=== PATIENT | male | born 1960 | race Caucasian/White ===

== ENCOUNTER 2020-09-10 17:14 | Emergency (ER) | payer OTHER, SELFPAY ==
[2020-09-10 17:29] VITALS: BP 114/74; BP 128/56; PULSE 64; PULSE 75; RESP 16; TEMP 36.7; O2SAT 100; BMI 21.7
--- NOTE | 2020-09-10 17:37 | ED.NAVMDI ---
HPI - Nausea/Vomiting/Diarrhea General Chief complaint: Nausea/Vomiting/Diarrhea Stated complaint: N/V/CHILLS Time Seen by Provider: 09/10/20 17:20 Source: patient and EMS Mode of arrival: EMS Limitations: no limitations History of Present Illness HPI Narrative: patient is a 59-year-old male with a past medical history of hyperlipidemia and gender reassignment surgery on testosterone arrives via EMS complaining of weakness, dizziness, nausea and 3 episodes of vomiting, once while in the ED. States 1 week ago he had what he believes was food poisoning, was vomiting and had diarrhea for a few days, did not eat too much, worked out 2 days and felt a little bit better but then this morning after breakfast, he has a short episode of nausea which resolved. Then he had dinner tonight, felt nauseous, vomited and called EMS. he denies fever, bloody or black stools, diarrhea, any changes in urination, COVID contacts or any other sick contacts. He says he does not leave the house very often, only for groceries and for 3 hours per week to work at the [employer]. He lives alone. Related Data Home Medications Medication Instructions Recorded Confirmed mesalamine [Lialda] 4.8 g PO DAILY 09/10/20 09/10/20 Previous Rx's Medication Instructions Recorded ondansetron 4 mg PO Q6H PRN #7 tab 09/10/20 Allergies Allergy/AdvReac Type Severity Reaction Status Date / Time clindamycin [CLINDAMYCIN] Allergy Unknown HIVES Verified 09/10/20 17:39 egg [EGG] Allergy Unknown RASH,HIVES Verified 09/10/20 17:39 penicillin V Allergy Unknown Rash Verified 09/10/20 17:39 Penicillins [PENICILLINS] Allergy Unknown RASH,HIVES Verified 09/10/20 17:39 Sulfa (Sulfonamide Allergy Unknown RASH,HIVES Verified 09/10/20 17:39 Antibiotics) [SULFA(SULFONAMIDE ANTIBIOTICS)] Egg/Pro Allergy Unknown Rash Uncoded 09/10/20 17:39 Review of Systems Review of Systems: Yes all other systems are reviewed and are negative PMFSH Past Medical History Attestation statement: The following information was validated with the patient. Medical History Anxiety Icozyd-rt-noet transgender person Ulcerative colitis Surgical History H/O carpal tunnel repair 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 Social History Social History Smoked in Last 30 Days: No Use of substances other than those prescribed or required for medical reasons: Yes Substance Use Type: Marijuana Advance Directives: No Advance Directives Information Provided: Yes Physical Exam Vital Signs: Vital Signs: Vital Signs Temp Pulse Resp BP Pulse Ox 09/10/20 19:23 70 15 128/58 L 98 09/10/20 17:29 98.1 F 75 16 128/56 L 100 Body Mass Index 21.7 Const: General: cooperative, healthy appearing, comfortable, no acute distress and well developed Nutritional Appearance: thin Orientation/consciousness: patient oriented x3 Limitations: no limitations HENMT: Head: Yes normal to inspection Eyes: General: appearance normal, both eyes and all related structures Neck: Neck: Yes normal visual inspection, Yes full ROM, Yes no meningeal signs and Yes supple Chest: Other: bilateral scars across chest under breastline Resp: Effort & Inspection: normal respiratory effort and able to speak in complete sentences Auscultation: clear to auscultation bilaterally, no crackles, no rales, no rhonchi and no wheezes Cardio: Rate: regular rate Rhythm: regular rhythm Heart sounds: S1 normal heart sound present and S2 normal heart sound present GI: Inspection: Yes normal to inspection Palpation (GI): Soft to palpation, nontender, no guarding and No hepatosplenomegaly present Auscultation: normal bowel sounds Skin: General skin exam: no rashes or lesions noted Neuro: General: patient oriented x3 and no meningeal signs Extrem: General: Yes normal to inspection and No pedal edema Course Course Course Narrative: 59-year-old male with past medical history of hyperlipidemia female to male transgender reassignment surgery on testosterone weekly, complaining of nausea and vomiting and 1 week of reduced intake. EMS started of 1 L of fluids on the patient, will get labs, EKG. This is likely dehydration. VSS stable. gave paper prescription for Zofran. MDM - Nausea/Vomiting/Diarrhea MDM Narrative Medical decision making narrative: labs WNL with slight dehydration, patient states he feels better, VSS, once we have EKG, we will likely discharge Differential Diagnosis Differential diagnosis: Likely food poisoning, gastroenteritis and dehydration Lab Data Attestation: I reviewed the patient's lab results. Lab results narrative: labs fairly benign, slight dehydration, electrolytes are normal. Result diagrams: 09/10/20 18:09/10/20 18:01 Labs: Lab Results 09/10/20 09/10/20 09/10/20 Range/Units 18:01 18:01 19:28 WBC 8.6 (4.8-10.8) X10*3/uL RBC 4.24 L (4.60-5.80) X10*6/uL Hgb 13.3 L (14.0-18.0) g/dl Hct 38.8 L (42-52) % MCV 91.5 (80-98) fL MCH 31.4 (27.0-33.0) pg MCHC 34.3 (31.0-36.0) g/dl RDW 12.6 (11.0-16.0) % Plt Count 270 (160-400) X10*3/uL MPV 10.1 (9.4-12.4) fL Immature Gran % (Auto) 0.2 (0.0-0.4) % Neut % (Auto) 72.6 (45-73) % Lymph % (Auto) 18.4 L (20-40) % [place] % (Auto) 7.3 (2-11) % Eos % (Auto) 0.9 (0-4) % Baso % (Auto) 0.6 (0-2) % Lymph # (Auto) 1.6 (1.2-4.9) X10*3/uL [place] # (Auto) 0.6 (0.1-1.2) X10*3/uL Eos # (Auto) 0.1 (0.0-0.4) X10*3/uL Baso # (Auto) 0.1 (0.0-0.2) X10*3/uL Abs Immat Gran (auto) 0.02 (0.00-0.03) X10*3/uL Absolute Neuts (auto) 6.3 (2.0-8.3) X10*3/uL Absolute Nucleated RBC 0.000 (0.0-0.012) X10*3/uL Nucleated RBC % (auto) 0.0 (0.0-0.2) /100WBC Sodium 138 (135-145) mmol/L Potassium 4.4 (3.3-5.1) mmol/l Chloride 104 (96-108) mmol/L Carbon Dioxide 23 (22-29) mmol/L Anion Gap 15 (12-20) BUN 22 H (9-16) mg/dL Creatinine 0.83 (0.5-1.4) mg/dL Estim Creat Clear Calc 75.6 Estimated GFR > 60 Random Glucose 94 (60-115) mg/dL Calcium 9.3 (8.4-10.2) mg/dL Total Bilirubin 0.5 (0.0-1.0) mg/dL Direct Bilirubin 0.2 (0.0-0.5) mg/dL AST 17 (5-37) U/L ALT 12 (0-40) U/L Alkaline Phosphatase 58 (39-117) U/L Total Protein 6.8 (6.5-8.0) g/dL Albumin 4.4 (3.5-5.0) g/dL Lipase 19 (8-78) U/L Urine Color YELLOW Urine Appearance CLEAR Urine pH 7.0 (5.0-8.0) Ur Specific [place] 1.020 (1.005-1.025) Urine Protein NEG (NEG-TRACE) MG/DL Urine Glucose (UA) NEG (NEG) MG/DL Urine Ketones NEG (NEG) MG/DL Urine Blood NEG (NEG) Urine Nitrite NEG (NEG) Ur Leukocyte Esterase 1+ H (NEG) Urine RBC 0 (0) /HPF Urine WBC 5-9 H (0-4) /HPF Ur Squamous Epith Cells 1+ /LPF Urine Bacteria NONE /LPF ECG Data Attestation: I personally reviewed and interpreted this ECG as follows: ECG interpretation date: 09/10/20 ECG interpretation time: 19:41 Prior ECG tracings: not available for review Interpretation: NSR HR76, NH int 174ms QRS 80ms QTc 438ms Dr Austin signed off on it as well. Discharge Plan Discharge Clinical Impression: Dehydration Patient Disposition: Home, Self-Care Instructions: Dehydration (ED) Prescriptions: New ondansetron 4 mg tablet,disintegrating 4 mg PO Q6H PRN (Reason: nausea and vomiting) Qty: 7 RF: 0 No Action mesalamine [Lialda] 1.2 gram Tablet,Delayed Release (Dr/Ec) 4.8 g PO DAILY RF: 0 Interventions: ED Discharge Assessment Last Done: 09/10/20 20:13 Discharge Date/Time: 09/10/20 20:23
--- NOTE | 2020-09-10 17:44 | ECG_ITS ---
Test Reason : DIZZYNESS Blood Pressure : / mmHG Vent. Rate : 076 BPM Atrial Rate : 076 BPM P-R Int : 174 ms QRS Dur : 080 ms QT Int : 390 ms P-R-T Axes : 080 063 042 degrees QTc Int : 438 ms Normal sinus rhythm Normal ECG No previous ECGs available Referred By: Aria Ross Electronically Signed By:AMI CRAWLEY MD
[2020-09-10 18:05] LABS: MANUAL DIFF FLAG NO
[2020-09-10 18:08] LABS: Basophils Absolute Auto 0.1 X10*3/uL (0.0-0.2); Basophils Percent Auto 0.6 % (0-2); Eosinophils Absolute Auto 0.1 X10*3/uL (0.0-0.4); Eosinophils Percent Auto 0.9 % (0-4); Hematocrit 38.8 % (42-52); Hemoglobin 13.3 g/dl (14.0-18.0); Imm Gran Abs Auto 0.02 X10*3/uL (0.00-0.03); Imm Gran Pct Auto 0.2 % (0.0-0.4); Lymphocytes Absolute Auto 1.6 X10*3/uL (1.2-4.9); Lymphocytes Percent Auto 18.4 % (20-40); Mean Corpuscular HGB Conc 34.3 g/dl (31.0-36.0); Mean Corpuscular Hemoglobin 31.4 pg (27.0-33.0); Mean Corpuscular Volume 91.5 fL (80-98); Mean Platelet Volume 10.1 fL (9.4-12.4); Monocytes Absolute Auto 0.6 X10*3/uL (0.1-1.2); Monocytes Percent Auto 7.3 % (2-11); Neutrophils Absolute Auto 6.3 X10*3/uL (2.0-8.3); Neutrophils Percent Auto 72.6 % (45-73); Platelet Count 270 X10*3/uL (160-400); Red Blood Count 4.24 X10*6/uL (4.60-5.80); Red Cell Distribution Width 12.6 % (11.0-16.0); White Blood Count 8.6 X10*3/uL (4.8-10.8)
[2020-09-10] MEDS: Metoclopramide HCl 10 MG/2 ML VIAL IVPUSH (18:17)
[2020-09-10] MEDS: LORazepam 2 MG/ML VIAL 0.5 MG IVPUSH (18:17)
[2020-09-10 18:39] LABS: Alanine Aminotransferase 12 U/L (0-40); Albumin Level 4.4 g/dL (3.5-5.0); Alkaline Phosphatase 58 U/L (39-117); Anion Gap 15 (12-20); Aspartate Amino Transferase 17 U/L (5-37); Bilirubin Direct 0.2 mg/dL (0.0-0.5); Bilirubin Total 0.5 mg/dL (0.0-1.0); Blood Urea Nitrogen 22 mg/dL (9-16); Calcium 9.3 mg/dL (8.4-10.2); Carbon Dioxide 23 mmol/L (22-29); Chloride 104 mmol/L (96-108); Creatinine Clr Calc Pharmacy 75.6; Estimated Glomerular Filt Rate > 60; Glucose Random 94 mg/dL (60-115); Lipase 19 U/L (8-78); Potassium 4.4 mmol/l (3.3-5.1); Sodium 138 mmol/L (135-145); Total Protein 6.8 g/dL (6.5-8.0)
[2020-09-10 19:23] VITALS: BP 128/58; PULSE 70; RESP 15; O2SAT 98
[2020-09-10 19:34] LABS: Glucose Urine UA NEG (NEG); Leukocyte Esterase Urine 1+ (NEG); Nitrite Urine NEG (NEG); Urine Blood NEG (NEG); Urine Ketones NEG (NEG); Urine Protein NEG (NEG-TRACE)
[2020-09-10 19:38] LABS: Appearance Urine CLEAR; Color Urine YELLOW
[2020-09-10 19:41] LABS: RBC Urine 0 /HPF (0); Squamous Epithelial Cell Urine 1+ /LPF
== END 2020-09-10 20:23 | disposition home or self-care (01) ==
PROVIDERS: Physician Assistant; Emergency Provider Emergency Medicine; PCP Nurse Practitioner Family
DX: E86.0 Dehydration (principal); R11.2 Nausea with vomiting, unspecified
CPT/HCPCS: 36415; 80048; 80076; 81001; 83690; 85025; 87086; 93005; 96374; 96375; 99284; J2060; J2765

== ENCOUNTER → 2021-01-29 12:55 | Outpatient (BNVA) | payer MEDICARE, MEDICAID, SELFPAY | PROVIDERS: PCP Nurse Practitioner Family; Visit Provider Internal Medicine Gastroenterology | DX: K92.89 Other specified diseases of the digestive system (principal); K51.90 Ulcerative colitis, unspecified, without complications | CPT/HCPCS: Q3014 ==

== ENCOUNTER → 2021-06-26 13:03 | Outpatient (BNVA) | payer MEDICARE, MEDICAID, SELFPAY | PROVIDERS: Visit Provider Nurse Practitioner | DX: K51.90 Ulcerative colitis, unspecified, without complications (principal); K92.89 Other specified diseases of the digestive system; K64.9 Unspecified hemorrhoids; R10.9 Unspecified abdominal pain; K21.9 Gastro-esophageal reflux disease without esophagitis; F41.9 Anxiety disorder, unspecified; Z88.1 Allergy status to other antibiotic agents; Z88.0 Allergy status to penicillin; Z88.2 Allergy status to sulfonamides; Z79.899 Other long term (current) drug therapy | CPT/HCPCS: 99212 ==

== ENCOUNTER → 2021-10-16 14:02 | Outpatient (BNVA) | payer MEDICARE, MEDICAID, SELFPAY | PROVIDERS: PCP Nurse Practitioner Family; Visit Provider Nurse Practitioner | DX: K21.9 Gastro-esophageal reflux disease without esophagitis (principal); R10.9 Unspecified abdominal pain; K59.03 Drug induced constipation; T40.2X5A Adverse effect of other opioids, initial encounter | CPT/HCPCS: Q3014 ==

== ENCOUNTER 2022-01-22 13:29 | Outpatient (REF) | payer MEDICARE, MEDICAID, SELFPAY ==
[2022-01-22 14:46] LABS: MANUAL DIFF FLAG NO
[2022-01-22 14:49] LABS: Basophils Absolute Auto 0.1 X10*3/uL (0.0-0.2); Basophils Percent Auto 0.6 % (0-2); Eosinophils Absolute Auto 0.1 X10*3/uL (0.0-0.4); Eosinophils Percent Auto 0.9 % (0-4); Hematocrit 41.8 % (42.0-52.0); Hemoglobin 13.4 g/dl (14.0-18.0); Imm Gran Abs Auto 0.02 X10*3/uL (0.00-0.03); Imm Gran Pct Auto 0.3 % (0.0-0.4); Lymphocytes Absolute Auto 1.9 X10*3/uL (1.2-4.9); Lymphocytes Percent Auto 24.3 % (20-40); Mean Corpuscular HGB Conc 32.1 g/dl (31.0-36.0); Mean Corpuscular Hemoglobin 29.5 pg (27.0-33.0); Mean Corpuscular Volume 92.1 fL (80.0-98.0); Mean Platelet Volume 9.8 fL (9.4-12.4); Monocytes Absolute Auto 0.6 X10*3/uL (0.1-1.2); Monocytes Percent Auto 7.1 % (2-11); Neutrophils Absolute Auto 5.2 x10*3/uL (2.0-8.3); Neutrophils Percent Auto 66.8 % (45-73); Platelet Count 275 X10*3/uL (160-400); Red Blood Count 4.54 X10*6/uL (4.60-5.80); Red Cell Distribution Width 13.3 % (11.0-16.0); White Blood Count 7.7 X10*3/uL (4.8-10.8)
[2022-01-22 15:20] LABS: Alanine Aminotransferase 13 U/L (0-40); Albumin Level 4.6 g/dL (3.5-5.0); Alkaline Phosphatase 76 U/L (39-117); Anion Gap 11 (12-20); Aspartate Amino Transferase 18 U/L (5-37); Bilirubin Total 0.5 mg/dL (0.0-1.0); Blood Urea Nitrogen 21 mg/dL (9-16); Calcium 10.2 mg/dL (8.4-10.2); Carbon Dioxide 30 mmol/L (22-29); Chloride 104 mmol/L (96-108); Estimated Glomerular Filt Rate > 60; Glucose Random 96 mg/dL (60-115); Potassium 4.6 mmol/L (3.3-5.1); Sodium 140 mmol/L (135-145); Total Protein 7.3 g/dL (6.5-8.0)
== END 2022-01-22 13:30 | disposition home or self-care (01) ==
LOC: HO.LAB 13:29
PROVIDERS: PCP Nurse Practitioner Family; Visit Provider Nurse Practitioner
DX: R10.9 Unspecified abdominal pain (principal); K64.9 Unspecified hemorrhoids; D12.6 Benign neoplasm of colon, unspecified; K21.9 Gastro-esophageal reflux disease without esophagitis; K51.90 Ulcerative colitis, unspecified, without complications
CPT/HCPCS: 36415; 80053; 85025; 99212

== ENCOUNTER 2022-03-05 12:00 | Day surgery (SDC) | payer MEDICARE, MEDICAID, SELFPAY ==
[2022-02-25 15:04] VITALS: BMI 21.9
--- NOTE | 2022-03-01 09:37 | P.CONAN_ITS ---
Documented by User: Lana Schwartz NP 03/01/22 09:46 HPI - Anesthesia Eval Consult details Narrative: 61yo M for Colonoscopy F to M transgender FOR[facility]LY [facility], [facility] Active Problems Active Problems: All Active Problems (Updated 02/25/22 @ 15:04 by Amberly Mcclain RN) Hemorrhoids (Acute) Gas bloat syndrome (Acute) Abdominal cramping (Acute) GERD (gastroesophageal reflux disease) (Acute) Therapeutic opioid induced constipation (Acute) Tubular adenoma of colon (Acute) Ulcerative colitis (Acute) Past Medical History Medical History Anxiety Asthma COVID-19 vaccine series completed Qmzlsn-gq-esdr transgender person HTN (hypertension) Neurodermatitis Seasonal allergies Ulcerative colitis Surgical History Surgical History H/O carpal tunnel repair History of esophagogastroduodenoscopy (EGD) Hx of colonoscopy Hx of nasal septoplasty 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 Social History Social History Household Members: None Are you a primary district manager primary care sales to a significant other at home: No Do you presently have visiting nurse or other home services: No Alcohol intake: current Alcohol intake frequency: holidays/special occasions only Patient Tobacco Use Status: Never used Tobacco Use of substances other than those prescribed or required for medical reasons: Yes Substance Use Type: Marijuana Have you been hit, kicked, punched, or otherwise hurt by someone within the past year? If so, by whom?: No Are you DNR?: No Advance Directives: No Advance Directives Information Provided: Yes (brochure mailed) Advance Directives on File: No Recently lost weight without trying: No Eating poorly because of decreased appetite: No Nutrition Risks: No Nutritional Risk Poor oral hygiene: No Current occupational status: employed Current occupation: [employer] Allergies Allergy/AdvReac Type Severity Reaction Status Date / Time clindamycin [CLINDAMYCIN] Allergy Intermediate HIVES Verified 02/25/22 14:24 Penicillins [PENICILLINS] Allergy Intermediate RASH,HIVES Verified 02/25/22 14:24 Sulfa (Sulfonamide Allergy Intermediate RASH,HIVES Verified 02/25/22 14:24 Antibiotics) [SULFA(SULFONAMIDE ANTIBIOTICS)] Home Medications Medication Instructions Recorded Confirmed Last Taken Type cetirizine 10 mg tablet (Zyrtec) 10 mg PO DAILY PRN 01/29/21 02/25/22 Unknown History lorazepam 0.5 mg tablet 0.5 mg PO TID PRN 01/29/21 02/25/22 03/05/22 History albuterol sulfate 90 mcg/actuation 1 inh INHALATION Q4H PRN 06/26/21 02/25/22 Unknown History aerosol inhaler (ProAir HFA) amlodipine 2.5 mg tablet 2.5 mg PO DAILY 01/22/22 02/25/22 03/05/22 History mesalamine 1.2 gram tablet,delayed 4.8 g PO QAM 02/25/22 02/25/22 Unknown History release naloxegol 25 mg tablet (Movantik) 25 mg PO QAM PRN 02/25/22 02/25/22 Unknown History naltrexone 8 mg-bupropion 90 mg 1 tab PO QPM 02/25/22 02/25/22 Unknown History tablet,extended release Exam Exam Date and Time: March 01, 2022 0937 Height,Weight and Vital Signs: Height 5 ft 3 in Weight 56.245 kg Pertinent Lab Results Pertinent Lab Results: Laboratory Tests 01/22/22 01/22/22 14:43 14:43 WBC 7.7 Hgb 13.4 L Hct 41.8 L Plt Count 275 Sodium 140 Potassium 4.6 Chloride 104 Carbon Dioxide 30 H BUN 21 H Creatinine 1.00 Assessment and Plan Assessment Anesthesia Assessment: Chart Reviewed Documented by User: Miriam Moralez MD 03/05/22 12:29 [facility] Past Medical History Medical History Anxiety Asthma COVID-19 vaccine series completed Gisoit-yu-bqqj transgender person HTN (hypertension) Neurodermatitis Seasonal allergies Ulcerative colitis Surgical History Surgical History H/O carpal tunnel repair History of esophagogastroduodenoscopy (EGD) Hx of colonoscopy Hx of nasal septoplasty 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 History of Problems with Anesthesia: No Social History Social History Household Members: None Are you a primary district manager primary care sales to a significant other at home: No Do you presently have visiting nurse or other home services: No Alcohol intake: current Alcohol intake frequency: holidays/special occasions only Patient Tobacco Use Status: Never used Tobacco Use of substances other than those prescribed or required for medical reasons: Yes Substance Use Type: Marijuana Have you been hit, kicked, punched, or otherwise hurt by someone within the past year? If so, by whom?: No Are you DNR?: No Advance Directives: No Advance Directives Information Provided: Yes (brochure mailed) Advance Directives on File: No Recently lost weight without trying: No Eating poorly because of decreased appetite: No Nutrition Risks: No Nutritional Risk Poor oral hygiene: No Current occupational status: employed Current occupation: [employer] Allergies Allergy/AdvReac Type Severity Reaction Status Date / Time clindamycin [CLINDAMYCIN] Allergy Intermediate HIVES Verified 02/25/22 14:24 Penicillins [PENICILLINS] Allergy Intermediate RASH,HIVES Verified 02/25/22 14:24 Sulfa (Sulfonamide Allergy Intermediate RASH,HIVES Verified 02/25/22 14:24 Antibiotics) [SULFA(SULFONAMIDE ANTIBIOTICS)] Home Medications Medication Instructions Recorded Confirmed Last Taken Type cetirizine 10 mg tablet (Zyrtec) 10 mg PO DAILY PRN 01/29/21 02/25/22 Unknown History lorazepam 0.5 mg tablet 0.5 mg PO TID PRN 01/29/21 02/25/22 03/05/22 History albuterol sulfate 90 mcg/actuation 1 inh INHALATION Q4H PRN 06/26/21 02/25/22 Unknown History aerosol inhaler (ProAir HFA) amlodipine 2.5 mg tablet 2.5 mg PO DAILY 01/22/22 02/25/22 03/05/22 History mesalamine 1.2 gram tablet,delayed 4.8 g PO QAM 02/25/22 02/25/22 Unknown History release naloxegol 25 mg tablet (Movantik) 25 mg PO QAM PRN 02/25/22 02/25/22 Unknown History naltrexone 8 mg-bupropion 90 mg 1 tab PO QPM 02/25/22 02/25/22 Unknown History tablet,extended release Exam Airway Mallampati Class: I TM Dist: >3cm Neck ROM: Full Loose/Missing/Broken Teeth: No Heart: RRR Lungs: CTA Assessment and Plan Final Anesthetic Review History of Problems with Anesthesia: No NPO: Yes ASA Class: II Patient Risk: Low Procedure Risk: Low Assessment/Block/Sedation in SS: Assess/Block/Sedation-SS Anesthetic Plan Anesthetic Plan: MAC: Disposition: Standard PACU
[2022-03-05 12:16] VITALS: BP 137/60; PULSE 83; RESP 16; TEMP 36.7; O2SAT 96
[2022-03-05] MEDS: Lactated Ringers 1,000 ML 100 ML IVCONT (12:22)
--- NOTE | 2022-03-05 12:26 | MHC.SHP ---
Pre-Procedural Eval Section A Date of Service: 03/05/22 Section B Chief Complaint: ulcerative colitis,benign neoplasm of colon Relevant Family History (Specify if Yes): No Relevant Social History: Other (specify) (thc) Present Medications: see Short Stay Collaborative assessment Medical History: Significant History (Anxiety Asthma COVID-19 vaccine series completed Ktbubs-oz-[id number] transgender person HTN (hypertension) Neurodermatitis Seasonal allergies Ulcerative colitis) History of Previous Operations: Relevant previous surgery/procedure and date(s) (H/O carpal tunnel repair History of esophagogastroduodenoscopy (EGD) Hx of colonoscopy Hx of nasal septoplasty 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) Allergies: Allergies Allergy/AdvReac Type Severity Reaction Status Date / Time clindamycin [CLINDAMYCIN] Allergy Intermediate HIVES Verified 02/25/22 14:24 Penicillins [PENICILLINS] Allergy Intermediate RASH,HIVES Verified 02/25/22 14:24 Sulfa (Sulfonamide Allergy Intermediate RASH,HIVES Verified 02/25/22 14:24 Antibiotics) [SULFA(SULFONAMIDE ANTIBIOTICS)] Review of Systems Sugical H&P ROS: Negative: Constitution, Cardiovascular, Respiratory, Neurological, Psychiatric, Hem-Onc, Allergic/Immunologic, Gastrointestinal, Genitourinary, Musculoskeletal, Integumentary, Endocrine and Eyes/Ears/Nose/Throat Exam Surgical H&P Exam: Normal: HEENT, Normal: Heart, Normal: Lungs, Normal: Extremities, Normal: Abdomen, Normal: Skin and Normal: Neurological Plan Diagnosis/Plan: Unchanged I have reviewed the history and physical and performed a pertinent physical examination on my patient. No changes have occurred unless specified.
--- NOTE | 2022-03-05 13:02 | W.PM.OPN ---
Operative Note Operative Note Date of Service: 03/05/22 Narrative: Operative Information Procedure Description: Colonoscopy Indication: hx of Ulcerative colitis, Anesthesia: MAC COLONOSCOPY Instrument: Olympus variable stiffness pediatric scope 190L Colonoscopy Monitoring: Vital signs and clinical assessment, continuous EKG monitoring, Pulse oximetry, Carbon Dioxide monitoring and blood pressure monitoring were done throughout the procedure. Colon withdrawal time was 15 minutes. Procedure: The patient was placed in the left lateral decubitis position and pre-procedure medications were administered. After a digital rectal examination of the ano-rectum, the video colonoscope was inserted into the rectum and advanced through the colon to the cecum/TI. The colonoscope was slowly withdrawn in a retrograde panoramic fashion and the colon mucosa was carefully examined including a retroflexed view of the rectum. Findings and interventions are described below. Procedure Difficulty: easy Findings: Terminal Ileum-normal, bx taken Bx taken from right colon, transverse, left colon and rectum in separate jars Cecum:normal Ascending Colon: normal Transverse Colon -normal Descending Colon:normal Sigmoid Colon: normal Rectum: Retroflexion with small internal hemorrhoids, grade I, 7-8 mm sessile polyp removed with cold snare, residual tissue removed with cofl forceps Anorectum - normal Colon preparation: [place] Bowel Preparation Scale Right colon; 2 Transverse colon: 2 Left colon; 2 (0 = Unprepared colon segment with mucosa not seen due to solid stool that cannot be cleared. 1 = Portion of mucosa of the colon segment seen, but other areas of the colon segment not well seen due to staining, residual stool and/or opaque liquid. 2 = Minor amount of residual staining, small fragments of stool and/or opaque liquid, but mucosa of colon segment seen well. 3 = Entire mucosa of colon segment seen well with no residual staining, small fragments of stool or opaque liquid) Impression and Post Procedure Diagnosis: internal hemorrhoids polyp Plan: High fiber diet leaflet Avoid straining at stool, epsom salts and sitz bath, anusol supps or cream Repeat Colonoscopy in 1-2 years due to longstanding hx of Uc since 1998 or earlier if clinically indicated, albeit seems to be in deep remission. Above findings were reviewed with the patient and relevant handouts were provided if indicated.
--- NOTE | 2022-03-05 13:02 | PM.OP ---
Brief Operative Note Date of Service: 03/05/22 Pre-op diagnosis: hx of UC Post-op diagnosis: same Procedure: see op note Surgeon: Caity Richards MD Anesthesia: MAC Was an Seismic Plotter used for this Procedure?: No Estimated blood loss (mL): 0 Condition: stable Disposition: PACU
[2022-03-05 13:07] VITALS: BP 109/59; PULSE 82; RESP 18; TEMP 36.1; O2SAT 99
[2022-03-05 13:22] VITALS: BP 126/63; PULSE 80; RESP 18; O2SAT 100
[2022-03-05 13:32] VITALS: BP 121/66; PULSE 84; RESP 18; TEMP 36.1; O2SAT 100
== END 2022-03-05 13:53 | disposition home or self-care (01) ==
PROVIDERS: PCP Nurse Practitioner Family; Visit Provider Internal Medicine Gastroenterology
PROC: 0DJD8ZZ Inspection of Lower Intestinal Tract, Via Natural or Artificial Opening Endoscopic (ICD-10-PCS; CPT 45378; principal; 2022-03-05 13:40)
DX: K51.90 Ulcerative colitis, unspecified, without complications (principal); Z86.010 Personal history of colon polyps; K62.1 Rectal polyp; K64.0 First degree hemorrhoids; J45.909 Unspecified asthma, uncomplicated; I10 Essential (primary) hypertension; L28.0 Lichen simplex chronicus; F41.1 Generalized anxiety disorder; Z87.890 Personal history of sex reassignment; Z88.0 Allergy status to penicillin; Z88.1 Allergy status to other antibiotic agents; Z88.2 Allergy status to sulfonamides; Z79.899 Other long term (current) drug therapy; F12.90 Cannabis use, unspecified, uncomplicated
CPT/HCPCS: 45385; 45380; 88305; Q9968

== ENCOUNTER → 2022-03-26 13:32 | Outpatient (BNVA) | payer MEDICARE, MEDICAID, SELFPAY | PROVIDERS: PCP Nurse Practitioner Family; Visit Provider Nurse Practitioner | DX: K51.90 Ulcerative colitis, unspecified, without complications (principal); K21.9 Gastro-esophageal reflux disease without esophagitis; D12.6 Benign neoplasm of colon, unspecified | CPT/HCPCS: 99212 ==

== ENCOUNTER → 2022-09-24 12:01 | Outpatient (BNVA) | payer MEDICARE, MEDICAID, SELFPAY | PROVIDERS: PCP Nurse Practitioner Family; Visit Provider Nurse Practitioner | DX: K51.90 Ulcerative colitis, unspecified, without complications (principal); K21.9 Gastro-esophageal reflux disease without esophagitis; D12.6 Benign neoplasm of colon, unspecified; K64.9 Unspecified hemorrhoids | CPT/HCPCS: 99212 ==

== ENCOUNTER → 2023-02-27 12:00 | Outpatient (BNVA) | payer MEDICARE, MEDICAID, SELFPAY | PROVIDERS: PCP Nurse Practitioner Family; Visit Provider Nurse Practitioner | DX: K51.90 Ulcerative colitis, unspecified, without complications (principal); K21.9 Gastro-esophageal reflux disease without esophagitis; K64.9 Unspecified hemorrhoids; Z79.899 Other long term (current) drug therapy | CPT/HCPCS: 99212 ==

== ENCOUNTER 2023-04-03 08:20 | Day surgery (SDC) | payer MEDICARE, MEDICAID, SELFPAY ==
[2023-04-01 15:07] VITALS: BMI 19.6
--- NOTE | 2023-04-02 12:00 | HO.ANESPROP2 ---
Documented by User: Lana Schwartz NP 04/02/23 12:01 HPI - Anesthesia Eval Consult details Narrative: 62yo M for Colonoscopy PMFSH Active Problems Active Problems: All Active Problems (Updated 09/24/22 @ 13:46 by JANIYA Napier) Hemorrhoids (Acute) Gas bloat syndrome (Acute) Abdominal cramping (Acute) GERD (gastroesophageal reflux disease) (Acute) Therapeutic opioid induced constipation (Acute) Tubular adenoma of colon (Acute) Ulcerative colitis (Acute) Past Medical History Medical History Anxiety Asthma COVID-19 vaccine series completed Pasuer-jm-[id number] transgender person HTN (hypertension) Neurodermatitis Seasonal allergies Ulcerative colitis Surgical History Surgical History H/O carpal tunnel repair History of esophagogastroduodenoscopy (EGD) Hx of colonoscopy Hx of nasal septoplasty 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 History of Problems with Anesthesia: No Social History Social History Household Members: None Are you a primary manager intensive care unit to a significant other at home: No Do you presently have visiting nurse or other home services: No Alcohol intake: current Alcohol intake frequency: holidays/special occasions only Patient Tobacco Use Status: Never used Tobacco Use of substances other than those prescribed or required for medical reasons: Yes Substance Use Type: Marijuana Are you DNR?: No Advance Directives: No Advance Directives Information Provided: Yes Recently lost weight without trying: No Nutrition Risks: No Nutritional Risk Current occupational status: employed Current occupation: [employer] Allergies Allergy/AdvReac Type Severity Reaction Status Date / Time clindamycin [CLINDAMYCIN] Allergy Intermediate HIVES Verified 02/27/23 12:26 egg Allergy Intermediate Hives Verified 02/27/23 12:26 Penicillins [PENICILLINS] Allergy Intermediate RASH,HIVES Verified 02/27/23 12:26 Sulfa (Sulfonamide Allergy Intermediate RASH,HIVES Verified 02/27/23 12:26 Antibiotics) [SULFA(SULFONAMIDE ANTIBIOTICS)] Home Medications Medication Instructions Recorded Confirmed Last Taken Type cetirizine 10 mg tablet (Zyrtec) 10 mg PO DAILY PRN Allergic 01/29/21 02/25/22 Unknown History Symptoms lorazepam 0.5 mg tablet 0.5 mg PO TID PRN Anxiety 01/29/21 02/25/22 03/05/22 History albuterol sulfate 90 mcg/actuation 1 inh inhalation Q4H PRN Wheezing 06/26/21 04/03/23 04/03/23 08:44 History aerosol inhaler (ProAir HFA) amlodipine 2.5 mg tablet 2.5 mg PO DAILY 01/22/22 02/25/22 03/05/22 History testosterone cypionate 200 mg/mL 50 mg IM QWEEK 03/26/22 Unknown History intramuscular oil Naltrexone 6 mg PO BEDTIME 09/24/22 Unknown History needle (disp) 18 G 18 gauge x 1 #100 ea 09/24/22 Unknown History (BD Regular Bevel [place]) syringe (disposable) 1 mL (BD #1,000 ea 09/24/22 Unknown History Tuberculin Slip-Tip) cholecalciferol (vitamin D3) 50 50 mcg PO DAILY 02/27/23 Unknown History mcg (2,000 unit) capsule Exam Exam Date and Time: April 02, 2023 1200 Height,Weight and Vital Signs: Height 5 ft 5 in Weight 53.524 kg Assessment and Plan Assessment Anesthesia Assessment: Chart Reviewed Final Anesthetic Review History of Problems with Anesthesia: No Documented by User: Ronald Hightower MD 04/03/23 09:50 [facility] Past Medical History Medical History Anxiety Asthma COVID-19 vaccine series completed Wybayo-ke-pvph transgender person HTN (hypertension) Neurodermatitis Seasonal allergies Ulcerative colitis Family History Family history of problems with anesthesia: No Surgical History Surgical History H/O carpal tunnel repair History of esophagogastroduodenoscopy (EGD) Hx of colonoscopy Hx of nasal septoplasty 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 Social History Social History Household Members: None Are you a primary manager intensive care unit to a significant other at home: No Do you presently have visiting nurse or other home services: No Alcohol intake: current Alcohol intake frequency: holidays/special occasions only Patient Tobacco Use Status: Never used Tobacco Use of substances other than those prescribed or required for medical reasons: Yes Substance Use Type: Marijuana Are you DNR?: No Advance Directives: No Advance Directives Information Provided: Yes Recently lost weight without trying: No Nutrition Risks: No Nutritional Risk Current occupational status: employed Current occupation: [employer] Allergies Allergy/AdvReac Type Severity Reaction Status Date / Time clindamycin [CLINDAMYCIN] Allergy Intermediate HIVES Verified 02/27/23 12:26 egg Allergy Intermediate Hives Verified 02/27/23 12:26 Penicillins [PENICILLINS] Allergy Intermediate RASH,HIVES Verified 02/27/23 12:26 Sulfa (Sulfonamide Allergy Intermediate RASH,HIVES Verified 02/27/23 12:26 Antibiotics) [SULFA(SULFONAMIDE ANTIBIOTICS)] Home Medications Medication Instructions Recorded Confirmed Last Taken Type cetirizine 10 mg tablet (Zyrtec) 10 mg PO DAILY PRN Allergic 01/29/21 02/25/22 Unknown History Symptoms lorazepam 0.5 mg tablet 0.5 mg PO TID PRN Anxiety 01/29/21 02/25/22 03/05/22 History albuterol sulfate 90 mcg/actuation 1 inh inhalation Q4H PRN Wheezing 06/26/21 04/03/23 04/03/23 08:44 History aerosol inhaler (ProAir HFA) amlodipine 2.5 mg tablet 2.5 mg PO DAILY 01/22/22 02/25/22 03/05/22 History testosterone cypionate 200 mg/mL 50 mg IM QWEEK 03/26/22 Unknown History intramuscular oil Naltrexone 6 mg PO BEDTIME 09/24/22 Unknown History needle (disp) 18 G 18 gauge x 1 #100 ea 09/24/22 Unknown History (BD Regular Bevel [place]) syringe (disposable) 1 mL (BD #1,000 ea 09/24/22 Unknown History Tuberculin Slip-Tip) cholecalciferol (vitamin D3) 50 50 mcg PO DAILY 02/27/23 Unknown History mcg (2,000 unit) capsule Exam Airway Mallampati Class: II TM Dist: >3cm Neck ROM: Full Loose/Missing/Broken Teeth: No Heart: rrr Lungs: clear Assessment and Plan Final Anesthetic Review Family History of Problems with Anesthesia: No NPO: Yes ASA Class: II Final Preanesthetic Review: No Changes in Pt Med Stat, Meds/Allgs Chart Reviewed, Consent Obtained/Reviewed and Anes Risks/Benef Reviewed Patient Risk: Low Procedure Risk: Low Anesthetic Plan Anesthetic Plan: MAC: Disposition: Standard PACU
[2023-04-03 08:51] VITALS: BP 138/73; PULSE 83; RESP 16; TEMP 36.7; O2SAT 98
--- NOTE | 2023-04-03 09:14 | PC.NURSE ---
large hematoma after iv insertion that didnt work applied 2x2 and pressure and ice pack for comfort to right to top of hand
[2023-04-03] MEDS: Lactated Ringers 1,000 ML 100 ML IVCONT (09:15)
--- NOTE | 2023-04-03 09:39 | P.HPSUR_ITS ---
Pre-Procedural Eval Section A Date of Service: 04/03/23 Section B Chief Complaint: Benign neoplasm anus,anal canal,ulcerative colitis Relevant Family History (Specify if Yes): No Relevant Social History: Other (specify) (THC) Present Medications: see Short Stay Collaborative assessment Medical History: Significant History (Anxiety Asthma COVID-19 vaccine series completed Rwwfzq-[id number]-[id number] transgender person HTN (hypertension) Neurodermatitis Seasonal allergies Ulcerative colitis) History of Previous Operations: Relevant previous surgery/procedure and date(s) (H/O carpal tunnel repair History of esophagogastroduodenoscopy (EGD) Hx of colonoscopy Hx of nasal septoplasty 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) Allergies: Allergies Allergy/AdvReac Type Severity Reaction Status Date / Time clindamycin [CLINDAMYCIN] Allergy Intermediate HIVES Verified 02/27/23 12:26 egg Allergy Intermediate Hives Verified 02/27/23 12:26 Penicillins [PENICILLINS] Allergy Intermediate RASH,HIVES Verified 02/27/23 12:26 Sulfa (Sulfonamide Allergy Intermediate RASH,HIVES Verified 02/27/23 12:26 Antibiotics) [SULFA(SULFONAMIDE ANTIBIOTICS)] Review of Systems Sugical H&P ROS: Negative: Constitution, Cardiovascular, Respiratory, Neurolo gical, Psychiatric, Hem-Onc, Allergic/Immunologic, Gastrointestinal, Genitourinary, Musculoskeletal, Integumentary, Endocrine and Eyes/Ears/Nose/Throat Exam Surgical H&P Exam: Normal: HEENT, Normal: Heart, Normal: Lungs, Normal: Extremities, Normal: Abdomen, Normal: Skin and Normal: Neurological Plan Diagnosis/Plan: Unchanged I have reviewed the history and physical and performed a pertinent physical examination on my patient. No changes have occurred unless specified. Time Spent With Patient Time: Total time managing care of this patient today ____ minutes.
--- NOTE | 2023-04-03 09:40 | W.PM.OPN ---
Operative Note Operative Note Date of Service: 04/03/23 Narrative: Operative Information Procedure Description: Colonoscopy Indication: hx of UC, screening Anesthesia: MAC COLONOSCOPY Instrument: Olympus variable stiffness pediatric scope 190L Colonoscopy Monitoring: Vital signs and clinical assessment, continuous EKG monitoring, Pulse oximetry, Carbon Dioxide monitoring and blood pressure monitoring were done throughout the procedure. Colon withdrawal time was 11 minutes. Procedure: The patient was placed in the left lateral decubitis position and pre-procedure medications were administered. After a digital rectal examination of the ano-rectum, the video colonoscope was inserted into the rectum and advanced through the colon to the cecum/TI. The colonoscope was slowly withdrawn in a retrograde panoramic fashion and the colon mucosa was carefully examined including a retroflexed view of the rectum. Findings and interventions are described below. Procedure Difficulty: easy Findings: Terminal Ileum-normal, Bx taken from right colon, transverse/left colon and rectum in separate jars Cecum:normal Ascending Colon: normal Transverse Colon -normal Descending Colon:normal Sigmoid Colon:?1-2 folds with v mild erythema Rectum: Retroflexion with small internal hemorrhoids, grade I, some scarring noted in the rectum Anorectum - normal Colon preparation: [place] Bowel Preparation Scale Right colon; 2 Transverse colon: 2 Left colon; 3 (0 = Unprepared colon segment with mucosa not seen due to solid stool that cannot be cleared. 1 = Portion of mucosa of the colon segment seen, but other areas of the colon segment not well seen due to staining, residual stool and/or opaque liquid. 2 = Minor amount of residual staining, small fragments of stool and/or opaque liquid, but mucosa of colon segment seen well. 3 = Entire mucosa of colon segment seen well with no residual staining, small fragments of stool or opaque liquid) Impression and Post Procedure Diagnosis: internal hemorrhoids v mild sigmoid erythema, localized Plan: High fiber diet leaflet Avoid straining at stool, epsom salts and sitz bath, anusol supps or cream Repeat Colonoscopy in 1-2 years due to longstanding hx of Uc since 1998 or earlier if clinically indicated, albeit seems to be in deep remission.
[2023-04-03 10:20] VITALS: BP 117/63; PULSE 97; RESP 18; TEMP 36.7; O2SAT 96
[2023-04-03 10:35] VITALS: BP 130/61; PULSE 83; RESP 16; TEMP 36.7; O2SAT 99
== END 2023-04-03 10:48 | disposition home or self-care (01) ==
PROVIDERS: PCP Nurse Practitioner Family; Visit Provider Internal Medicine Gastroenterology
PROC: 0DJD8ZZ Inspection of Lower Intestinal Tract, Via Natural or Artificial Opening Endoscopic (ICD-10-PCS; CPT 45378; principal; 2023-04-03 09:40)
DX: Z12.11 Encounter for screening for malignant neoplasm of colon (principal); Z86.010 Personal history of colon polyps; K52.9 Noninfective gastroenteritis and colitis, unspecified; Z87.19 Personal history of other diseases of the digestive system; K64.0 First degree hemorrhoids; K21.9 Gastro-esophageal reflux disease without esophagitis; I10 Essential (primary) hypertension; J45.909 Unspecified asthma, uncomplicated; F64.0 Transsexualism; L28.0 Lichen simplex chronicus; F41.1 Generalized anxiety disorder; Z79.899 Other long term (current) drug therapy; Z88.2 Allergy status to sulfonamides; Z88.0 Allergy status to penicillin; Z88.1 Allergy status to other antibiotic agents; Z98.890 Other specified postprocedural states
CPT/HCPCS: 45380; 88305

== ENCOUNTER 2023-04-16 11:58 | Outpatient (REF) | payer MEDICARE, MEDICAID, SELFPAY ==
[2023-04-16 12:50] LABS: MANUAL DIFF FLAG NO
[2023-04-16 13:00] LABS: Basophils Absolute Auto 0.1 X10*3/uL (0.0-0.2); Basophils Percent Auto 0.9 % (0-2); Eosinophils Absolute Auto 0.1 X10*3/uL (0.0-0.4); Eosinophils Percent Auto 1.9 % (0-4); Hematocrit 38.9 % (42.0-52.0); Hemoglobin 12.8 g/dl (14.0-18.0); Imm Gran Abs Auto 0.02 X10*3/uL (0.00-0.03); Imm Gran Pct Auto 0.3 % (0.0-0.4); Lymphocytes Percent Auto 35.1 % (20-40); Mean Corpuscular HGB Conc 32.9 g/dl (31.0-36.0); Mean Corpuscular Volume 91.3 fL (80.0-98.0); Mean Platelet Volume 9.5 fL (9.4-12.4); Monocytes Absolute Auto 0.5 X10*3/uL (0.1-1.2); Monocytes Percent Auto 8.9 % (2-11); Neutrophils Percent Auto 52.9 % (45-73); Platelet Count 269 X10*3/uL (160-400); Red Blood Count 4.26 X10*6/uL (4.60-5.80); Red Cell Distribution Width 13.3 % (11.0-16.0); White Blood Count 5.8 X10*3/uL (4.8-10.8)
[2023-04-16 13:23] LABS: Alanine Aminotransferase 11 U/L (0-40); Albumin Level 4.6 g/dL (3.5-5.0); Alkaline Phosphatase 73 U/L (39-117); Anion Gap 10 (12-20); Aspartate Amino Transferase 18 U/L (5-37); Bilirubin Total 0.7 mg/dL (0.0-1.0); Blood Urea Nitrogen 12 mg/dL (9-16); C Reactive Protein 0.21 mg/dL (< or = 0.50); Calcium 10.3 mg/dL (8.4-10.2); Carbon Dioxide 28 mmol/L (22-29); Chloride 107 mmol/L (96-108); Estimated Glomerular Filt Rate > 60; Glucose Random 89 mg/dL (60-115); Potassium 4.3 mmol/L (3.3-5.1); Sodium 141 mmol/L (135-145); Total Protein 7.2 g/dL (6.5-8.0)
== END 2023-04-16 11:59 | disposition home or self-care (01) ==
LOC: HO.LAB 11:58
PROVIDERS: PCP Nurse Practitioner Family; Visit Provider Nurse Practitioner
DX: K51.90 Ulcerative colitis, unspecified, without complications (principal); K62.5 Hemorrhage of anus and rectum; D12.6 Benign neoplasm of colon, unspecified; K21.9 Gastro-esophageal reflux disease without esophagitis
CPT/HCPCS: 36415; 80053; 85025; 86140; 99212

== ENCOUNTER → 2023-05-07 12:04 | Outpatient (BNVA) | payer MEDICARE, MEDICAID, SELFPAY | PROVIDERS: PCP Nurse Practitioner Family; Visit Provider Nurse Practitioner | DX: K51.90 Ulcerative colitis, unspecified, without complications (principal); K21.9 Gastro-esophageal reflux disease without esophagitis; R10.9 Unspecified abdominal pain | CPT/HCPCS: 99212 ==

== ENCOUNTER 2023-09-15 13:01 | Outpatient (REF) | payer MEDICARE, MEDICAID, SELFPAY ==
[2023-09-15 14:00] LABS: CDiff Gene PCR POSITIVE (Negative)
[2023-09-15 14:48] LABS: CDIFF Internal ctrl Dots and bkg OK (V); CDiff Toxin Negative (Negative)
[2023-09-15 14:55] LABS: Adenovirus F 40/41 Not Detected (Not Detect.); Astrovirus Not Detected (Not Detect.); Campylobacter Not Detected (Not Detect.); Cryptosporidium Not Detected (Not Detect.); Cyclospora cayetanensis Not Detected (Not Detect.); E. coli EAEC Not Detected (Not Detect.); E. coli EPEC Not Detected (Not Detect.); E. coli ETEC Not Detected (Not Detect.); E. coli STEC Not Detected (Not Detect.); Entamoeba histolytica Not Detected (Not Detect.); Giardia lamblia Not Detected (Not Detect.); Norovirus GI/GII Not Detected (Not Detect.); Plesiomonas shigelloides Not Detected (Not Detect.); Rotavirus A Not Detected (Not Detect.); Salmonella Not Detected (Not Detect.); Sapovirus Not Detected (Not Detect.); Shigella sp./EIEC Not Detected (Not Detect.); Vibrio Not Detected (Not Detect.); Vibrio Cholerae Not Detected (Not Detect.); Yersinia enterocolitica Not Detected (Not Detect.)
[2023-09-19 22:59] LABS: Calprotectin, Fecal 375 mcg/g
== END 2023-09-15 13:02 | disposition home or self-care (01) ==
LOC: HO.LNP 13:01
PROVIDERS: Visit Provider Nurse Practitioner
DX: R19.7 Diarrhea, unspecified (principal)
CPT/HCPCS: 83993; 87324; 87493; 87507

== ENCOUNTER 2023-10-07 09:33 | Outpatient (REF) | payer MEDICARE, MEDICAID, SELFPAY ==
[2023-10-07 10:49] LABS: CDiff Gene PCR NEGATIVE (Negative)
[2023-10-07 12:20] LABS: Adenovirus F 40/41 Not Detected (Not Detect.); Astrovirus Not Detected (Not Detect.); Campylobacter Not Detected (Not Detect.); Cryptosporidium Not Detected (Not Detect.); Cyclospora cayetanensis Not Detected (Not Detect.); E. coli EAEC Not Detected (Not Detect.); E. coli EPEC Not Detected (Not Detect.); E. coli ETEC Not Detected (Not Detect.); E. coli STEC Not Detected (Not Detect.); Entamoeba histolytica Not Detected (Not Detect.); Giardia lamblia Not Detected (Not Detect.); Norovirus GI/GII Not Detected (Not Detect.); Plesiomonas shigelloides Not Detected (Not Detect.); Rotavirus A Not Detected (Not Detect.); Salmonella Not Detected (Not Detect.); Sapovirus Not Detected (Not Detect.); Shigella sp./EIEC Not Detected (Not Detect.); Vibrio Not Detected (Not Detect.); Vibrio Cholerae Not Detected (Not Detect.); Yersinia enterocolitica Not Detected (Not Detect.)
== END 2023-10-07 09:34 | disposition home or self-care (01) ==
LOC: HO.LNP 09:33
PROVIDERS: Visit Provider Nurse Practitioner
DX: R19.7 Diarrhea, unspecified (principal); A04.72 Enterocolitis due to Clostridium difficile, not specified as recurrent
CPT/HCPCS: 87493; 87507

== ENCOUNTER 2023-10-15 13:21 | Outpatient (AMB) | payer MEDICARE, MEDICAID, SELFPAY ==
--- NOTE | 2023-10-15 13:22 | A.OFFVIS_ITS ---
Intake Vital Signs 10/15/23 13:26 Height 5 ft 3 in Weight 104 lb BMI 18.4 BP 148/76 H Blood Pressure Location Lt brachial Position Sitting Pulse 82 Intake Visit Reasons: 4 week f/u colitis Intake Note: Patient returns to in office visit today in follow up c diff. CC: Patient states he stills feels woozy and kind of weak. He reports stools still loose, he was seeing blood in stool but this resolved but he believe he saw a little bit today. Pt c/o poor appetite and weight loss. [employer] Required: No Accompanied by: Self / Same As Patient Allergies clindamycin [CLINDAMYCIN] Allergy (Intermediate, Verified 11/05/23 11:45) HIVES egg Allergy (Intermediate, Verified 11/05/23 11:45) Hives Penicillins [PENICILLINS] Allergy (Intermediate, Verified 11/05/23 11:45) RASH,HIVES Sulfa (Sulfonamide Antibiotics) [SULFA(SULFONAMIDE ANTIBIOTICS)] Allergy (Intermediate, Verified 11/05/23 11:45) RASH,HIVES HPI 4 week f/u colitis HPI Details Assessment & Plan (1) Ulcerative colitis: Code(s): K51.90 - Ulcerative colitis, unspecified, without complications Plan: We need to look back in to doing the PA for the name brand mesalamine r/t swallowing. He finds the bentyl helpful for some IBS but his bowels are normalizing. He did have trouble with cocktail sauce and he finds his tolerance to peppers and to spicy foods is diminished. We review the labs which all look good and seem to indicate that his IBD is well controlled. I think any breakthrough diarrhea he is having may be because he is developing food intolerance is as he ages. He continues on his pantoprazole with good control of his heartburn. ROV 6 mos. (2) GERD (gastroesophageal reflux diseas e): Code(s): K21.9 - Gastro-esophageal reflux disease without esophagitis (3) Abdominal cramping: Code(s): R10.9 - Unspecified abdominal pain TODAY'S VISIT HE continues to have soft stools but improving a little bit is off of the zofran and the mena dizziness is improved but still woozy and weak. Not still eating, no appetite still. Drinks rich and eats yogurt, but we discuss probiotic/prebiotic. Not quite finished with difficid will be a couple of days. Warned that probiotic sometimes can upset IBD so he will have to go by how his body reacts. We discuss bowel irritability s/p c diff, jeromy with IBD. He continues his budesinide and mesalamine. His dog even tested + for c diff. He has appt 11/05 and we will keep that for now. [facility] Medical History HTN (hypertension) COVID-19 vaccine series completed Asthma Seasonal allergies Neurodermatitis Klnfhn-cg-egzx transgender person Ulcerative colitis Anxiety Surgical History Hx of nasal septoplasty History of esophagogastroduodenoscopy (EGD) Hx of colonoscopy 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 H/O carpal tunnel repair Social History Household Members: None Are you a primary career coordinator to a significant other at home: No Do you presently have visiting nurse or other home services: No Alcohol intake: current Alcohol intake frequency: holidays/special occasions only Patient Tobacco Use Status: Never used Tobacco Substance Use Type: Marijuana Current occupational status: employed Current occupation: [employer] Review of Systems Const Denies fatigue, Denies fever(s), Reports lethargy, Reports malaise, Denies night sweats, Reports poor appetite and Reports weight loss ENT Reports Normal hearing present, Denies dental pain, Denies dysphagia, Denies hearing loss, Denies mouth pain, Denies odynophagia, Denies throat swelling, Denies tongue swelling and Reports other (Dentition adequate) Card Reports lightheadedness Resp Reports no additional complaints GI Denies abdominal pain, Denies melena, Denies bloating, Denies hematochezia, Denies constipation, Denies GI cramping, Denies dysphagia, Denies excessive flatus, Denies early satiety, Denies heartburn, Denies diarrhea, Reports loose stools, Denies nausea, Denies odynophagia, Denies vomiting and Denies hematemesis Skin/Breast Denies pruritus, Denies lesions, Denies rash and Denies jaundice Neuro Reports Normal hearing present and Denies Abnormal speech present Endo Denies fatigue Aller/Immun Denies throat swelling and Denies tongue swelling Physical Exam Vital Signs: Last Vital Signs Pulse 82 10/15/23 13:26 BP 148/76 H 10/15/23 13:26 BMI result Body Mass Index 18.4 Const General: cooperative, no acute distress, well developed, tired appearing and well groomed Nutritional Appearance: well nourished Orientation/consciousness: oriented to person, oriented to place and oriented to time Limitations: No language barrier HEENT Head: Yes normocephalic and Yes atraumatic Eyes General: appearance normal, both eyes and all related structures Pupils: Equal, round and reactive pupils present Neck Neck: Yes normal visual inspection and Yes no lymphadenopathy Thyroid: Thyroid normal Resp Effort & Inspection: normal respiratory effort and able to speak in complete sentences Auscultation: clear to auscultation bilaterally Cardio Rate: regular rate Rhythm: regular rhythm Heart sounds: Normal, physiologic split S2 sound present Peripheral pulses: radial pulses present and posterior tibial pulses present GI Inspection: No distended and No Abdominal panniculus present Palpation (GI): Soft to palpation, nontender, no guarding, not rigid and No hepatosplenomegaly present Percussion: Yes normal to percussion Auscultation: normal bowel sounds Rectal Exam - Male: Yes deferred Skin General skin exam: no rashes or lesions noted, turgor normal, skin not dry, no jaundice, No spider nevi and no striae Rashes: no rashes Nails: normal Neuro General: oriented to person, oriented to place and oriented to time Cranial nerves: Yes Equal, round and reactive pupils present and Yes Normal hearing present Speech: No Abnormal speech present Extrem General: Yes normal to inspection, No clubbing, No cyanosis and No edema Psych Appearance: grossly normal and well kempt Mental Status: mental status grossly normal Speech and movement: Normal speech and movement present Affect: normal affect Attitude: cooperative Thought process: Normal thought process present and not confabulating Thought content: Normal thought content present Insight: Limited insight present (Psych) Judgement: Limited judgement present (Psych) Assessment & Plan Assessment & Plan (1) Ulcerative colitis: Code(s): K51.90 - Ulcerative colitis, unspecified, without complications (2) GERD (gastroesophageal reflux disease): Code(s): K21.9 - Gastro-esophageal reflux disease without esophagitis (3) Tubular adenoma of colon: Comment: Last scope 02/2022 repeat in 2 years due to ulcerative colitis Code(s): D12.6 - Benign neoplasm of colon, unspecified (4) C. difficile colitis: Code(s): A04.72 - Enterocolitis due to Clostridium difficile, not specified as recurrent Plan HE continues to have soft stools but improving a little bit is off of the zofran and the mena dizziness is improved but still woozy and weak. Not still eating, no appetite still. Drinks rich and eats yogurt, but we discuss probiotic/prebiotic. Not quite finished with difficid will be a couple of days. Warned that probiotic sometimes can upset IBD so he will have to go by how his body reacts. We discuss bowel irritability s/p c diff, jeromy with IBD. He continues his budesinide and mesalamine. His dog even tested + for c diff. He has appt 11/05 and we will keep that for now. Coding Level of Care Code Est Pt Level 3 (77516) Diagnoses Ulcerative colitis K51.90 GERD (gastroesophageal reflux disease) K21.9 Tubular adenoma of colon D12.6 C. difficile colitis A04.72
[2023-10-15 13:26] VITALS: BP 148/76; PULSE 82; BMI 18.4
== END 2023-10-15 14:03 | disposition home or self-care (01) ==
PROVIDERS: PCP Nurse Practitioner Family; Visit Provider Nurse Practitioner
DX: K51.90 Ulcerative colitis, unspecified, without complications (principal); K21.9 Gastro-esophageal reflux disease without esophagitis; D12.6 Benign neoplasm of colon, unspecified; A04.72 Enterocolitis due to Clostridium difficile, not specified as recurrent
CPT/HCPCS: 99213

== ENCOUNTER → 2023-10-15 13:21 | Outpatient (BNVA) | payer MEDICARE, MEDICAID, SELFPAY | PROVIDERS: PCP Nurse Practitioner Family; Visit Provider Nurse Practitioner | DX: K51.90 Ulcerative colitis, unspecified, without complications (principal); K21.9 Gastro-esophageal reflux disease without esophagitis; D12.6 Benign neoplasm of colon, unspecified; A04.72 Enterocolitis due to Clostridium difficile, not specified as recurrent | CPT/HCPCS: 99212 ==

== ENCOUNTER 2023-11-05 11:21 | Outpatient (AMB) | payer MEDICARE, MEDICAID, SELFPAY ==
--- NOTE | 2023-11-05 11:39 | MHC.OFFVIS ---
Intake Vital Signs 11/05/23 11:40 Height 5 ft 3 in Weight 106 lb 11.26 oz BMI 18.9 BP 128/76 Blood Pressure Location Lt brachial Position Sitting Pulse 71 Intake Visit Reasons: 6 month fu Intake Note: Patient returns to in office visit today in follow up c diff. CC: Patient states he has been feeling a little bit better, he is getting his energy back and light headedness and vertigo are pretty much gone. GI symptoms got better per Pt, and then it got worst again. He states after abx he was doing better and having formed stools but later he began to see blood in stools, diarrhea, ,and UC symptoms. Regulatory Manager Required: No Accompanied by: Self / Same As Patient Allergies clindamycin [CLINDAMYCIN] Allergy (Intermediate, Verified 11/05/23 11:45) HIVES egg Allergy (Intermediate, Verified 11/05/23 11:45) Hives Penicillins [PENICILLINS] Allergy (Intermediate, Verified 11/05/23 11:45) RASH,HIVES Sulfa (Sulfonamide Antibiotics) [SULFA(SULFONAMIDE ANTIBIOTICS)] Allergy (Intermediate, Verified 11/05/23 11:45) RASH,HIVES HPI 6 month fu HPI Details HE continues to have soft stools but improving a little bit is off of the zofran and the mena dizziness is improved but still woozy and weak. Not still eating, no appetite still. Drinks rich and eats yogurt, but we discuss probiotic/prebiotic. Not quite finished with difficid will be a couple of days. Warned that probiotic sometimes can upset IBD so he will have to go by how his body reacts. We discuss bowel irritiability s/p c diff, jeromy with IBD. He continues his budesinide and mesalamine. His dog even tested + for c diff. He has appt 11/05 and we will keep that for now. Assessment & Plan (1) Ulcerative colitis: Code(s): K51.90 - Ulcerative colitis, unspecified, without complications (2) GERD (gastroesophageal reflux disease): Code(s): K21.9 - Gastro-esophageal reflux disease without esophagitis (3) Tubular adenoma of colon: Comment: Last scope 02/2022 repeat in 2 years due to ulcerative colitis Code(s): D12.6 - Benign neoplasm of colon, unspecified (4) C. difficile colitis: Code(s): A04.72 - Enterocolitis due to Clostridium difficile, not specified as recurrent TODAY'S VISIT. His energy has improved and he is eating better. He actually had 2 formed stools, but then he started to have rectal bleeding and the diarrhea returned. Since then the rectal bleeding has resolved but the diarrhea continues. Obviously he could have a multifactorial situation between the ulcer colitis in the C diff. At this time I think will re-treat him with Dificid, get some labs including a repeat C diff fecal calprotectin is CRP and continue his budesonide along with his Lialda. He needs a note for his landlord because they were trying to do his denzel and he is really still to ill to not have access to his bathroom and to do any movement of furniture. I will provide this for him. Return office visit in 8 weeks. 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 H/O carpal tunnel repair Social History Household Members: None Are you a primary wound care nurse to a significant other at home: No Do you presently have visiting nurse or other home services: No Alcohol intake: current Alcohol intake frequency: holidays/special occasions only Patient Tobacco Use Status: Never used Tobacco Substance Use Type: Marijuana Current occupational status: employed Current occupation: [employer] Review of Systems Const Reports fatigue, Denies fever(s), Denies night sweats, Reports poor appetite and Reports weight loss ENT Reports Normal hearing present, Denies dysphagia, Denies odynophagia, Denies throat swelling and Denies tongue swelling Card Reports no additional complaints Resp Reports no additional complaints GI Denies abdominal pain, Denies melena, Denies bloating, Denies hematochezia, Denies constipation, Denies GI cramping, Denies dysphagia, Denies excessive flatus, Denies early satiety, Reports heartburn, Denies diarrhea, Reports loose stools, Denies nausea, Denies odynophagia, Denies vomiting and Denies hematemesis Skin/Breast Denies pruritus, Denies lesions, Denies rash and Denies jaundice Neuro Reports Normal hearing present and Denies Abnormal speech present Endo Reports fatigue Aller/Immun Denies throat swelling and Denies tongue swelling Physical Exam Vital Signs: Last Vital Signs Pulse 71 11/05/23 11:40 BP 128/76 11/05/23 11:40 BMI result Body Mass Index 18.9 Const General: cooperative, no acute distress, well developed and well groomed Nutritional Appearance: average body habitus and well nourished Orientation/consciousness: oriented to person, oriented to place and oriented to time Limitations: No language barrier HEENT Head: Yes normocephalic and Yes atraumatic Eyes General: appearance normal, both eyes and all related structures Pupils: Equal, round and reactive pupils present Neck Neck: Yes normal visual inspection and Yes no lymphadenopathy Thyroid: Thyroid normal Resp Effort & Inspection: normal respiratory effort and able to speak in complete sentences Auscultation: clear to auscultation bilaterally Cardio Rate: regular rate Rhythm: regular rhythm Heart sounds: Normal, physiologic split S2 sound present Peripheral pulses: radial pulses present and posterior tibial pulses present GI Inspection: No distended and No Abdominal panniculus present Palpation (GI): Soft to palpation, nontender, no guarding, not rigid and No hepatosplenomegaly present Percussion: Yes normal to percussion Auscultation: normal bowel sounds Rectal Exam - Male: Yes deferred Skin General skin exam: no rashes or lesions noted, turgor normal, skin not dry, no jaundice, No spider nevi and no striae Rashes: no rashes Nails: normal Neuro General: oriented to person, oriented to place and oriented to time Cranial nerves: Yes Equal, round and reactive pupils present and Yes Normal hearing present Speech: No Abnormal speech present Extrem General: Yes normal to inspection, No clubbing, No cyanosis and No edema Psych Appearance: grossly normal and well kempt Mental Status: mental status grossly normal Speech and movement: Normal speech and movement present Affect: normal affect Attitude: cooperative Thought process: Normal thought process present and not confabulating Thought content: Normal thought content present Insight: Fair insight present (Psych) and Limited insight present (Psych) Judgement: Fair judgement present (Psych) and Limited judgement present (Psych) Assessment & Plan Assessment & Plan (1) C. difficile colitis: Code(s): A04.72 - Enterocolitis due to Clostridium difficile, not specified as recurrent (2) GERD (gastroesophageal reflux disease): Code(s): K21.9 - Gastro-esophageal reflux disease without esophagitis (3) Ulcerative colitis: Code(s): K51.90 - Ulcerative colitis, unspecified, without complications Plan His energy has improved and he is eating better. He actually had 2 formed stools, but then he started to have rectal bleeding and the diarrhea returned. Since then the rectal bleeding has resolved but the diarrhea continues. Obviously he could have a multifactorial situation between the ulcer colitis in the C diff. At this time I think will re-treat him with Dificid, get some labs including a repeat C diff fecal calprotectin is CRP and continue his budesonide along with his Lialda. He also continues his dicyclomine as needed, and his pantoprazole 20 mg daily. He needs a note for his landlord because they were trying to do his denzel and he is really still to ill to not have access to his bathroom and to do any movement of furniture. I will provide this for him. Return office visit in 8 weeks. He will be due for repeat colonoscopy in 2023. Orders: Orders C Reactive Protein 11/05/23 A04.72 - Enterocolitis due to Clostridium difficile, not specified as recurrent Calprotectin, Fecal 11/06/23 A04.72 - Enterocolitis due to Clostridium difficile, not specified as recurrent CDiff Gene PCR 11/06/23 A04.72 - Enterocolitis due to Clostridium difficile, not specified as recurrent Comprehensive Met. Panel 11/05/23 A04.72 - Enterocolitis due to Clostridium difficile, not specified as recurrent Complete Blood Count Auto Diff 11/05/23 A04.72 - Enterocolitis due to Clostridium difficile, not specified as recurrent Medications: New fidaxomicin (Dificid) 200 mg PO Q12H 20 tabs 0RF 10 days A04.72 - Enterocolitis due to Clostridium difficile, not specified as recurrent Changed From Lialda 4.8 grams (4 x 1.2 gram) PO DAILY 30 days 120 tabs 6RF NS K51.90 - Ulcerative colitis, unspecified, without complications To Lialda (mesalamine) 4.8 grams (4 x 1.2 gram) PO DAILY 120 tabs 6RF 30 days NS K51.90 - Ulcerative colitis, unspecified, without complications Refilled pantoprazole 20 mg PO DAILY 30 tabs 6RF 30 days K21.9 - Gastro-esophageal reflux disease without esophagitis budesonide ER 3 mg PO QAM 90 ea 1RF K51.90 - Ulcerative colitis, unspecified, without complications dicyclomine 10 mg PO QID 360 caps 1RF R10.9 - Unspecified abdominal pain Patient Instructions: [place] Galindo Please be informed that this patient has been severely ill and is unable to lift and move furniture and needs consistent access to his private bathroom at this time until his health improves. He will likely need to have any repairs to his apartment put off for another 3 months until his health improves. If you have any questions please feel free to contact my office. Regards JANIYA Lucas [facility] [phone] Coding Level of Care Code Est Pt Level 3 (86318) Diagnoses C. difficile colitis A04.72 GERD (gastroesophageal reflux disease) K21.9 Ulcerative colitis K51.90
[2023-11-05 11:40] VITALS: BP 128/76; PULSE 71; BMI 18.9
== END 2023-11-05 13:55 | disposition home or self-care (01) ==
PROVIDERS: PCP Nurse Practitioner Family; Visit Provider Nurse Practitioner
DX: A04.72 Enterocolitis due to Clostridium difficile, not specified as recurrent (principal); K21.9 Gastro-esophageal reflux disease without esophagitis; K51.90 Ulcerative colitis, unspecified, without complications
CPT/HCPCS: 99213

== ENCOUNTER 2023-11-05 11:21 | Outpatient (REF) | payer MEDICARE, MEDICAID, SELFPAY ==
[2023-11-05 12:42] LABS: MANUAL DIFF FLAG NO
[2023-11-05 13:02] LABS: Basophils Percent Auto 0.6 % (0-2); Eosinophils Percent Auto 0.5 % (0-4); Hematocrit 40.9 % (42.0-52.0); Hemoglobin 13.5 g/dl (14.0-18.0); Imm Gran Abs Auto 0.02 X10*3/uL (0.00-0.03); Imm Gran Pct Auto 0.3 % (0.0-0.4); Lymphocytes Absolute Auto 1.8 X10*3/uL (1.2-4.9); Lymphocytes Percent Auto 27.8 % (20-40); Mean Corpuscular Hemoglobin 30.1 pg (27.0-33.0); Mean Corpuscular Volume 91.3 fL (80.0-98.0); Mean Platelet Volume 9.7 fL (9.4-12.4); Monocytes Absolute Auto 0.5 X10*3/uL (0.1-1.2); Monocytes Percent Auto 7.6 % (2-11); Neutrophils Absolute Auto 4.2 x10*3/uL (2.0-8.3); Neutrophils Percent Auto 63.2 % (45-73); Platelet Count 284 X10*3/uL (160-400); Red Blood Count 4.48 X10*6/uL (4.60-5.80); Red Cell Distribution Width 13.8 % (11.0-16.0); White Blood Count 6.6 X10*3/uL (4.8-10.8)
[2023-11-05 13:39] LABS: Alanine Aminotransferase 14 U/L (0-40); Albumin Level 4.8 g/dL (3.5-5.0); Alkaline Phosphatase 78 U/L (39-117); Anion Gap 11 (12-20); Aspartate Amino Transferase 16 U/L (5-37); Bilirubin Total 0.4 mg/dL (0.0-1.0); Blood Urea Nitrogen 19 mg/dL (9-16); C Reactive Protein 0.15 mg/dL (< or = 0.50); Calcium 10.2 mg/dL (8.4-10.2); Carbon Dioxide 29 mmol/L (22-29); Chloride 106 mmol/L (96-108); Estimated Glomerular Filt Rate > 60; Glucose Random 97 mg/dL (60-115); Potassium 3.9 mmol/L (3.3-5.1); Sodium 142 mmol/L (135-145); Total Protein 7.6 g/dL (6.5-8.0)
== END 2023-11-05 11:22 | disposition home or self-care (01) ==
LOC: HO.LAB 11:21
PROVIDERS: PCP Nurse Practitioner Family; Visit Provider Nurse Practitioner
DX: A04.72 Enterocolitis due to Clostridium difficile, not specified as recurrent (principal); K21.9 Gastro-esophageal reflux disease without esophagitis; K51.90 Ulcerative colitis, unspecified, without complications
CPT/HCPCS: 36415; 80053; 85025; 86140; 99212

== ENCOUNTER 2023-11-06 12:33 | Outpatient (REF) | payer MEDICARE, MEDICAID, SELFPAY ==
[2023-11-06 13:34] LABS: CDiff Gene PCR POSITIVE (Negative)
[2023-11-06 14:14] LABS: CDIFF Internal ctrl Dots and bkg OK (V); CDiff Toxin Negative (Negative)
[2023-11-13 01:53] LABS: Calprotectin, Fecal 155 mcg/g
== END 2023-11-06 12:34 | disposition home or self-care (01) ==
LOC: HO.LNP 12:33
PROVIDERS: Visit Provider Nurse Practitioner
DX: A04.72 Enterocolitis due to Clostridium difficile, not specified as recurrent (principal)
CPT/HCPCS: 83993; 87324; 87493

== ENCOUNTER 2023-12-05 12:36 | Outpatient (REF) | payer MEDICARE, MEDICAID, SELFPAY | END 2023-12-05 12:37 | disposition home or self-care (01) | LOC: HO.LAB 12:36 | PROVIDERS: PCP Nurse Practitioner Family; Visit Provider Nurse Practitioner | DX: K51.90 Ulcerative colitis, unspecified, without complications (principal); K21.9 Gastro-esophageal reflux disease without esophagitis; D12.6 Benign neoplasm of colon, unspecified; A04.72 Enterocolitis due to Clostridium difficile, not specified as recurrent; R63.4 Abnormal weight loss | CPT/HCPCS: 99212 ==

== ENCOUNTER 2023-12-05 12:46 | Outpatient (AMB) | payer MEDICARE, MEDICAID, SELFPAY ==
--- NOTE | 2023-12-05 12:48 | MHC.OFFVIS ---
Intake Vital Signs 12/05/23 12:50 Height 5 ft 3 in Weight 103 lb 9.876 oz BMI 18.4 BP 136/74 Blood Pressure Location Lt brachial Position Sitting Pulse 75 Intake Visit Reasons: F/u per February Intake Note: [place] presents in the office today as a follow up Per February Giselle. CC: He went and had labs done prior to this appt. Allergies clindamycin [CLINDAMYCIN] Allergy (Intermediate, Verified 12/05/23 12:50) HIVES egg Allergy (Intermediate, Verified 12/05/23 12:50) Hives Penicillins [PENICILLINS] Allergy (Intermediate, Verified 12/05/23 12:50) RASH,HIVES Sulfa (Sulfonamide Antibiotics) [SULFA(SULFONAMIDE ANTIBIOTICS)] Allergy (Intermediate, Verified 12/05/23 12:50) RASH,HIVES HPI F/u per February HPI Details HE continues to have soft stools but improving a littlt bit is off of the zofran and the mena dizziness is improved but still woozy and weak. Not still eating, no appeitte still. Drinks rich and eats yogurt, but we discuss probiotic/prebiotic. Not quite finished with difficid will be a coule of days. Warned that probiotic sometimes can upset IBD so he will have to go by how his body reacts. We discuss bowel irritability s/p c diff, jeromy with IBD. He continues his budesinide and mesalamine. His dog even tested + for c diff. He has appt 11/05 and we will keep that for now. Assessment & Plan (1) Ulcerative colitis: Code(s): K51.90 - Ulcerative colitis, unspecified, without complications (2) GERD (gastroesophageal reflux disease): Code(s): K21.9 - Gastro-esophageal reflux disease without esophagitis (3) Tubular adenoma of colon: Comment: Last scope 02/2022 repeat in 2 years due to ulcerative colitis Code(s): D12.6 - Benign neoplasm of colon, unspecified (4) C. difficile colitis: Code(s): A04.72 - Enterocolitis due to Clostridium difficile, not specified as recurrent CORRESPONDENCE On 12/04/23 @ 15:19 TonySusana Wrote To GiselleFebruary Patient states he works today and tomorrow - he will get stool cups tomorrow to get done. On 12/04/23 @ 13:06 Earlene Dewitt Wrote To GiselleFebruary Earlene Dewitt removed from item. On 12/04/23 @ 12:39 Sam Caldera Wrote To GiselleFebruary (2) Called Pt and LVM notifying him of orders placed and to try and have them done within next day or two. Sam Caldera removed from item. On 12/04/23 @ 12:33 Sumi Desai Wrote To GiselleFebruary (3) Okay please let him know I have ordered more stool studies and IF he can complete them in the next day or 2 it would help facilitate the next step of treatment. But I understand this is difficult at short notice. On 12/04/23 @ 10:24 Sam Caldera Wrote To GiselleFebruary Pt stated he can't come in today because he is working but he will try to come tomorrow at 12:45. On 12/04/23 @ 10:12 Sumi Desai Wrote To Earlene Dewitt (2) V please call him and see if he can come in to see me today. On 12/04/23 @ 09:54 Earlene Dewitt Wrote To GiselleFebruary patient left message. patient states he has been on three rounds of antibiotics and he has been okay for the most part until last weekend. patient states he is now experiencing diarrhea again, light blood in his stools, cramping and an increased urge to defecate. patient is inquiring if this could still be the C.Diff. patient also states he is having a hard time trying to gain and keep weight on. patient states his normal weight is around 120 but recently he weighs 101lbs. Laboratory Tests 09/15/23 09/15/23 10/07/23 05:35 05:35 05:45 Stool Calprotectin 375 H C. difficile Tox B Gene POSITIVE A* NEGATIVE C. difficile Toxin A&B Negative 11/06/23 11/06/23 11/06/23 06:40 06:40 06:40 Stool Calprotectin 155 H C. difficile Tox B Gene POSITIVE A* C. difficile Toxin A&B Negative TODAY'S VISIT. He though the was doing better, but then about a week ago he started having tenesmus, softer stools with a lot of cramping (started 11/19 to be specific). No blood. He is constantly losing weight as well despite trying to take int 2000kcal a day. He does well when he does not work, but not when he works as he does not have time to eat and the business causes him to lose his appetite. He also has some increase of diarrhea when he has to run errands, perhaps some anxiety triggering IBS as well. The conundrum we have here is trying to tease out whether this is his ulcerative colitis at thing up, a return of the C diff colitis, or irritable bowel after severe infection causing the problem. Obviously, I would do not want to treat with steroids if we think there has an active organism that is best suppressed by the immune system; however antibiotic therapy is expensive and we should consider that along with Rebyota if we think C diff is the problem. IBS of course would be simply symptomatic treatment. I explained this to [place] and he understands it and he understands that I am not going to make a decision until I have the labs and the stool studies. When I last saw him he still had some inflammation via the fecal calprotectin, but this was trending down. The inflammation only shows that there is a process organic to the colon and does not differentiate between the inflammation of inflammatory bowel disease versus the inflammation of a severe infectious pathogen. However, looking at the trend may help me along with the infectious stool studies to make a more informed decision. I did describe the treatment available with Rebyota, but will have to see if we can get this covered since it has a fairly new treatment. He is quite agreeable to having this done. He is aware that fecal transplantation is sometimes the only way to cure the symptoms of a chronic C diff infection. He continues on 1 budesinide a day and his mesalamine. He also is using the bentyl for cramping. I do not know what to do regarding abx vs increase of steriods until I have more information. He is attempting to get it for me. ROV 2 weeks. [facility] Medical History HTN (hypertension) COVID-19 vaccine series completed Asthma Seasonal allergies Neurodermatitis [id number] transgender person Ulcerative colitis Anxiety Surgical History Hx of nasal septoplasty History of esophagogastroduodenoscopy (EGD) Hx of colonoscopy 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 H/O carpal tunnel repair Social History Household Members: None Are you a primary long term care phlebotomist to a significant other at home: No Do you presently have visiting nurse or other home services: No Alcohol intake: current Alcohol intake frequency: holidays/special occasions only Patient Tobacco Use Status: Never used Tobacco Substance Use Type: Marijuana Current occupational status: employed Current occupation: [employer] Review of Systems Const Denies fatigue, Denies fever(s), Denies night sweats, Reports poor appetite and Reports weight loss Eyes Details: glasses for reading Reports requires corrective lenses ENT Reports Normal hearing present, Denies dental pain, Denies dysphagia, Denies hearing loss, Denies mouth pain, Denies odynophagia, Denies throat swelling, Denies tongue swelling and Reports other (Dentition adequate) Card Reports no additional complaints Resp Reports no additional complaints GI Reports abdominal pain, Denies melena, Denies bloating, Denies hematochezia, Denies constipation, Reports GI cramping, Denies dysphagia, Denies excessive flatus, Denies early satiety, Reports heartburn, Denies diarrhea, Reports loose stools, Denies nausea, Denies odynophagia, Denies vomiting and Denies hematemesis Skin/Breast Denies pruritus, Denies lesions, Denies rash and Denies jaundice Neuro Reports Normal hearing present and Denies Abnormal speech present Endo Denies fatigue Aller/Immun Denies throat swelling and Denies tongue swelling Physical Exam Vital Signs: Last Vital Signs Pulse 75 12/05/23 12:50 BP 136/74 12/05/23 12:50 BMI result Body Mass Index 18.4 Const General: cooperative, no acute distress, well developed and well groomed Nutritional Appearance: well nourished and thin Orientation/consciousness: oriented to person, oriented to place and oriented to time Limitations: No language barrier HEENT Head: Yes normocephalic and Yes atraumatic Eyes General: appearance normal, both eyes and all related structures Pupils: Equal, round and reactive pupils present Neck Neck: Yes normal visual inspection and Yes no lymphadenopathy Thyroid: Thyroid normal Resp Effort & Inspection: normal respiratory effort and able to speak in complete sentences Auscultation: clear to auscultation bilaterally Cardio Rate: regular rate Rhythm: regular rhythm Heart sounds: Normal, physiologic split S2 sound present Peripheral pulses: radial pulses present and posterior tibial pulses present GI Inspection: No distended and No Abdominal panniculus present Palpation (GI): Soft to palpation, nontender, no guarding, not rigid and No hepatosplenomegaly present Percussion: Yes normal to percussion Auscultation: Hyperactive bowel sounds present Rectal Exam - Male: Yes deferred Skin General skin exam: no rashes or lesions noted, turgor normal, skin not dry, no jaundice, No spider nevi and no striae Rashes: no rashes Nails: normal Neuro General: oriented to person, oriented to place and oriented to time Cranial nerves: Yes Equal, round and reactive pupils present and Yes Normal hearing present Speech: No Abnormal speech present Extrem General: Yes normal to inspection, No clubbing, No cyanosis and No edema Psych Appearance: grossly normal and well kempt Mental Status: mental status grossly normal Speech and movement: Normal speech and movement present Affect: normal affect Attitude: cooperative Thought process: Normal thought process present and not confabulating Thought content: Normal thought content present Insight: Fair insight present (Psych) Judgement: Fair judgement present (Psych) Assessment & Plan Assessment & Plan (1) Acute diarrhea: Code(s): R19.7 - Diarrhea, unspecified (2) C. difficile colitis: Code(s): A04.72 - Enterocolitis due to Clostridium difficile, not specified as recurrent (3) Ulcerative colitis: Code(s): K51.90 - Ulcerative colitis, unspecified, without complications (4) Weight loss, abnormal: Code(s): R63.4 - Abnormal weight loss Plan He though the was doing better, but then about a week ago he started having tenesmus, softer stools with a lot of cramping (started 1/3 to be specific). No blood. He is constantly losing weight as well despite trying to take int 2000kcal a day. He does well when he does not work, but not when he works as he does not have time to eat and the business causes him to lose his appetite. He also has some increase of diarrhea when he has to run errands, perhaps some anxiety triggering IBS as well. The conundrum we have here is trying to tease out whether this is his ulcerative colitis at thing up, a return of the C diff colitis, or irritable bowel after severe infection causing the problem. Obviously, I would do not want to treat with steroids if we think there has an active organism that is best suppressed by the immune system; however antibiotic therapy is expensive and we should consider that along with Rebyota if we think C diff is the problem. IBS of course would be simply symptomatic treatment. I explained this to [place] and he understands it and he understands that I am not going to make a decision until I have the labs and the stool studies. When I last saw him he still had some inflammation via the fecal calprotectin, but this was trending down. The inflammation only shows that there is a process organic to the colon and does not differentiate between the inflammation of inflammatory bowel disease versus the inflammation of a severe infectious pathogen. However, looking at the trend may help me along with the infectious stool studies to make a more informed decision. I did describe the treatment available with Rebyota, but will have to see if we can get this covered since it has a fairly new treatment. He is quite agreeable to having this done. He is aware that fecal transplantation is sometimes the only way to cure the symptoms of a chronic C diff infection. He continues on 1 budesinide a day and his mesalamine. He also is using the bentyl for cramping. I do not know what to do regarding abx vs increase of steriods until I have more information. He is attempting to get it for me. ROV 2 weeks. Medications: New fecal microbiota, live-jslm (Rebyota) 150 mL VT ONCE 150 mL 0RF A04.72 - Enterocolitis due to Clostridium difficile, not specified as recurrent Coding Level of Care Code Est Pt Level 4 (80131) Diagnoses Acute diarrhea R19.7 C. difficile colitis A04.72 Ulcerative colitis K51.90 Weight loss, abnormal R63.4 Time Spent (min) 32
[2023-12-05 12:50] VITALS: BP 136/74; PULSE 75; BMI 18.4
== END 2023-12-05 13:22 | disposition home or self-care (01) ==
PROVIDERS: PCP Nurse Practitioner Family; Visit Provider Nurse Practitioner
DX: R19.7 Diarrhea, unspecified (principal); A04.72 Enterocolitis due to Clostridium difficile, not specified as recurrent; K51.90 Ulcerative colitis, unspecified, without complications; R63.4 Abnormal weight loss
CPT/HCPCS: 99214

== ENCOUNTER 2023-12-08 15:34 | Outpatient (REF) | payer MEDICARE, MEDICAID, SELFPAY ==
[2023-12-08 17:08] LABS: CDiff Gene PCR NEGATIVE (Negative)
[2023-12-09 12:30] LABS: Adenovirus F 40/41 Not Detected (Not Detect.); Astrovirus Not Detected (Not Detect.); Campylobacter Not Detected (Not Detect.); Cryptosporidium Not Detected (Not Detect.); Cyclospora cayetanensis Not Detected (Not Detect.); E. coli EAEC Not Detected (Not Detect.); E. coli EPEC Not Detected (Not Detect.); E. coli ETEC Not Detected (Not Detect.); E. coli STEC Not Detected (Not Detect.); Entamoeba histolytica Not Detected (Not Detect.); Giardia lamblia Not Detected (Not Detect.); Norovirus GI/GII Not Detected (Not Detect.); Plesiomonas shigelloides Not Detected (Not Detect.); Rotavirus A Not Detected (Not Detect.); Salmonella Not Detected (Not Detect.); Sapovirus Not Detected (Not Detect.); Shigella sp./EIEC Not Detected (Not Detect.); Vibrio Not Detected (Not Detect.); Vibrio Cholerae Not Detected (Not Detect.); Yersinia enterocolitica Not Detected (Not Detect.)
[2023-12-14 21:25] LABS: Calprotectin, Fecal 95 mcg/g
== END 2023-12-08 15:35 | disposition home or self-care (01) ==
LOC: HO.LNP 15:34
PROVIDERS: Visit Provider Nurse Practitioner
DX: A04.72 Enterocolitis due to Clostridium difficile, not specified as recurrent (principal); K51.90 Ulcerative colitis, unspecified, without complications; R19.7 Diarrhea, unspecified
CPT/HCPCS: 83993; 87493; 87507

== ENCOUNTER 2023-12-31 11:26 | Outpatient (AMB) | payer MEDICARE, MEDICAID, SELFPAY ==
--- NOTE | 2023-12-31 11:27 | MHC.OFFVIS ---
Intake Vital Signs 12/31/23 11:32 Height 5 ft 3 in Weight 111 lb 1.808 oz BMI 19.7 BP 133/74 Blood Pressure Location Lt brachial Position Sitting Pulse 67 Intake Visit Reasons: 8 weeks follow up Intake Note: [place] presents in the office today as an 8 weeks follow up. CC: Patient states that he is doing better and gaining his energy back. He still has seen some blood in the stools. He sates he feels better when he is at home off from work. Per patient he also is trying to gain weight. Chronometer Repairer Required: No Accompanied by: Self / Same As Patient Allergies clindamycin [CLINDAMYCIN] Allergy (Intermediate, Verified 12/31/23 11:37) HIVES egg Allergy (Intermediate, Verified 12/31/23 11:37) Hives Penicillins [PENICILLINS] Allergy (Intermediate, Verified 12/31/23 11:37) RASH,HIVES Sulfa (Sulfonamide Antibiotics) [SULFA(SULFONAMIDE ANTIBIOTICS)] Allergy (Intermediate, Verified 12/31/23 11:37) RASH,HIVES HPI 8 weeks follow up HPI Details Assessment & Plan (1) Acute diarrhea: Code(s): R19.7 - Diarrhea, unspecified (2) C. difficile colitis: Code(s): A04.72 - Enterocolitis due to Clostridium difficile, not specified as recurrent (3) Ulcerative colitis: Code(s): K51.90 - Ulcerative colitis, unspecified, without complications (4) Weight loss, abnormal: Code(s): R63.4 - Abnormal weight loss Plan He though the was doing better, but then about a week ago he started having tenesmus, softer stools with a lot of cramping (started / to be specific). No blood. He is constantly losing weight as well despite trying to take int 2000kcal a day. He does well when he does not work, but not when he works as he does not have time to eat and the business causes him to lose his appetite. He also has some increase of diarrhea when he has to run errands, perhaps some anxiety triggering IBS as well. The conundrum we have here is trying to tease out whether this is his ulcerative colitis at thing up, a return of the C diff colitis, or irritable bowel after severe infection causing the problem. Obviously, I would do not want to treat with steroids if we think there has an active organism that is best suppressed by the immune system; however antibiotic therapy is expensive and we should consider that along with Rebyota if we think C diff is the problem. IBS of course would be simply symptomatic treatment. I explained this to [place] and he understands it and he understands that I am not going to make a decision until I have the labs and the stool studies. When I last saw him he still had some inflammation via the fecal calprotectin, but this was trending down. The inflammation only shows that there is a process organic to the colon and does not differentiate between the inflammation of inflammatory bowel disease versus the inflammation of a severe infectious pathogen. However, looking at the trend may help me along with the infectious stool studies to make a more informed decision. I did describe the treatment available with Rebyota, but will have to see if we can get this covered since it has a fairly new treatment. He is quite agreeable to having this done. He is aware that fecal transplantation is sometimes the only way to cure the symptoms of a chronic C diff infection. He continues on 1 budesinide a day and his mesalamine. He also is using the bentyl for cramping. I do not know what to do regarding abx vs increase of steriods until I have more information. He is attempting to get it for me. ROV 2 weeks. Medications: New fecal microbiota, live-jslm (Rebyota ) 150 mL AR ONCE 15 0 mL 0RF A04.72 - Enterocol itis due to Clostr idium difficile, n ot specified as re current TODAY'S VISIT. He is slowly improving, he did increase the budesinide to 3-4 a day but only just started this. He continues on his mesalamine. He has noted that fattier fish like salmon and tuna cause his watery diarrhea. He will have cramping if he goes out and about, and he still does not want to eat at work - so he struggles with gaining weight but then loses it when he works. It does appear that his weight has gone to 111 lb from a low of 103 lb. He is using protein shakes with some success as well. He is not comfortable with going on something like Humira at this time r/t cancer warning. He does a lot better when he does not work, but can not afford to retire. For now will continue the budesonide and wait and watch to see if he has progressive improvement. ROV 6-8 weeks. [facility] Medical History HTN (hypertension) COVID-19 vaccine series completed Asthma Seasonal allergies Neurodermatitis [id number] transgender person Ulcerative colitis Anxiety Surgical History Hx of nasal septoplasty History of esophagogastroduodenoscopy (EGD) Hx of colonoscopy 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 H/O carpal tunnel repair Social History Household Members: None Are you a primary care aide to a significant other at home: No Do you presently have visiting nurse or other home services: No Alcohol intake: current Alcohol intake frequency: holidays/special occasions only Patient Tobacco Use Status: Never used Tobacco Substance Use Type: Marijuana Current occupational status: employed Current occupation: [employer] Review of Systems Const Denies fatigue, Denies fever(s), Denies night sweats, Denies poor appetite, Reports weight gain and Denies weight loss ENT Reports Normal hearing present, Denies dental pain, Denies dysphagia, Denies hearing loss, Denies mouth pain, Denies odynophagia, Denies throat swelling, Denies tongue swelling and Reports other (Dentition adequate) Card Reports no additional complaints Resp Reports no additional complaints GI Details: Denies abdominal pain, Denies melena, Denies bloating, Reports hematochezia (Occasional intermittent), Denies constipation, Reports GI cramping, Denies dysphagia, Denies excessive flatus, Denies early satiety, Reports heartburn, Denies diarrhea, Reports loose stools, Denies nausea, Denies odynophagia, Denies vomiting and Denies hematemesis Skin/Breast Denies pruritus, Denies lesions, Denies rash and Denies jaundice Neuro Reports Normal hearing present and Denies Abnormal speech present Endo Denies fatigue Aller/Immun Denies throat swelling and Denies tongue swelling Physical Exam Vital Signs: Last Vital Signs Pulse 67 12/31/23 11:32 BP 133/74 12/31/23 11:32 BMI result Body Mass Index 19.7 Const General: cooperative, no acute distress, well developed and well groomed Nutritional Appearance: well nourished and thin Orientation/consciousness: oriented to person, oriented to place and oriented to time Limitations: No language barrier HEENT Head: Yes normocephalic and Yes atraumatic Eyes General: appearance normal, both eyes and all related structures Pupils: Equal, round and reactive pupils present Neck Neck: Yes normal visual inspection and Yes no lymphadenopathy Thyroid: Thyroid normal Resp Effort & Inspection: normal respiratory effort and able to speak in complete sentences Auscultation: clear to auscultation bilaterally Cardio Rate: regular rate Rhythm: regular rhythm Heart sounds: Normal, physiologic split S2 sound present Peripheral pulses: radial pulses present and posterior tibial pulses present GI Inspection: No distended and No Abdominal panniculus present Palpation (GI): Soft to palpation, nontender, no guarding, not rigid and No hepatosplenomegaly present Percussion: Yes normal to percussion Auscultation: normal bowel sounds Rectal Exam - Male: Yes deferred Skin General skin exam: no rashes or lesions noted, turgor normal, skin not dry, no jaundice, No spider nevi and no striae Rashes: no rashes Nails: normal Neuro General: oriented to person, oriented to place and oriented to time Cranial nerves: Yes Equal, round and reactive pupils present and Yes Normal hearing present Speech: No Abnormal speech present Extrem General: Yes normal to inspection, No clubbing, No cyanosis and No edema Psych Appearance: grossly normal and well kempt Mental Status: mental status grossly normal Speech and movement: Normal speech and movement present Affect: normal affect Attitude: cooperative Thought process: Normal thought process present and not confabulating Thought content: Normal thought content present Insight: Limited insight present (Psych) Assessment & Plan Assessment & Plan (1) C. difficile colitis: Code(s): A04.72 - Enterocolitis due to Clostridium difficile, not specified as recurrent (2) GERD (gastroesophageal reflux disease): Code(s): K21.9 - Gastro-esophageal reflux disease without esophagitis (3) Tubular adenoma of colon: Comment: Last scope 02/2022 repeat in 2 years due to ulcerative colitis Code(s): D12.6 - Benign neoplasm of colon, unspecified (4) Ulcerative colitis: Code(s): K51.90 - Ulcerative colitis, unspecified, without complications (5) Abdominal cramping: Code(s): R10.9 - Unspecified abdominal pain Plan He is slowly improving, he did increase the budesinide to 3-4 a day but only just started this. He continues on his mesalamine. He has noted that fattier fish like salmon and tuna cause his watery diarrhea. He will have cramping if he goes out and about, and he still does not want to eat at work - so he struggles with gaining weight but then loses it when he works. It does appear that his weight has gone to 111 lb from a low of 103 lb. He is using protein shakes with some success as well. He is not comfortable with going on something like Humira at this time r/t cancer warning. He does a lot better when he does not work, but can not afford to retire. For now will continue the budesonide and wait and watch to see if he has progressive improvement. ROV 6-8 weeks. Medications: New dicyclomine 20 mg PO QID 30 days 120 tabs 6RF R10.9 - Unspecified abdominal pain Discontinued mesalamine Pt can not swallow generic r/t size Discontinued Reason: Doctor's Order 4.8 grams (4 x 1.2 gram) PO QAM 120 tabs 6RF NS dicyclomine Discontinued Reason: Doctor's Order 10 mg PO QID 360 caps 1RF R10.9 - Unspecified abdominal pain Coding Level of Care Code Est Pt Level 3 (57844) Diagnoses C. difficile colitis A04.72 GERD (gastroesophageal reflux disease) K21.9 Tubular adenoma of colon D12.6 Ulcerative colitis K51.90 Abdominal cramping R10.9
[2023-12-31 11:32] VITALS: BP 133/74; PULSE 67; BMI 19.7
== END 2023-12-31 12:17 | disposition home or self-care (01) ==
PROVIDERS: PCP Nurse Practitioner Family; Visit Provider Nurse Practitioner
DX: A04.72 Enterocolitis due to Clostridium difficile, not specified as recurrent (principal); K21.9 Gastro-esophageal reflux disease without esophagitis; D12.6 Benign neoplasm of colon, unspecified; K51.90 Ulcerative colitis, unspecified, without complications; R10.9 Unspecified abdominal pain
CPT/HCPCS: 99213

== ENCOUNTER → 2023-12-31 11:26 | Outpatient (BNVA) | payer MEDICARE, MEDICAID, SELFPAY | PROVIDERS: PCP Nurse Practitioner Family; Visit Provider Nurse Practitioner | DX: A04.72 Enterocolitis due to Clostridium difficile, not specified as recurrent (principal); K21.9 Gastro-esophageal reflux disease without esophagitis; K51.90 Ulcerative colitis, unspecified, without complications; D12.6 Benign neoplasm of colon, unspecified; R10.9 Unspecified abdominal pain | CPT/HCPCS: 99212 ==

== ENCOUNTER 2024-02-18 11:20 | Outpatient (AMB) | payer MEDICARE, MEDICAID, SELFPAY ==
[2024-02-18 11:26] VITALS: BP 155/74; PULSE 75; BMI 22.0
--- NOTE | 2024-02-18 11:26 | MHC.OFFVIS ---
Vital Signs 02/18/24 11:26 Height 5 ft 3 in Weight 124 lb 5.451 oz BMI 22.0 BP 155/74 H Blood Pressure Location Rt brachial Position Sitting Pulse 75 Intake Visit Reasons: follow up UC s/p c diff Intake Note: [place] returns in follow up of UC. CC: Pt states that he is gaining weight but continues to have occasional blood with BMs, diarrhea after eating fish, and abdominal cramping. He also reports stinging, burning, and soreness sometimes from rectal area. Patient states that he gets a little headachy around dinner time that goes away after eating. 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 difficile colitis: Code(s): A04.72 - Enterocolitis due to Clostridium difficile, not specified as recurrent (2) GERD (gastroesophageal reflux disease): Code(s): K21.9 - Gastro-esophageal reflux disease without esophagitis (3) Tubular adenoma of colon: Comment: Last scope 02/2022 repeat in 2 years due to ulcerative colitis Code(s): D12.6 - Benign neoplasm of colon, unspecified (4) Ulcerative colitis: Code(s): K51.90 - Ulcerative colitis, unspecified, without complications (5) Abdominal cramping: Code(s): R10.9 - Unspecified abdominal pain Plan He is slowly improving, he did increase the budesinide to 3-4 a day but only just started this. He continues on his mesalamine. He has noted that fattier fish like salmon and tuna cause his watery diarrhea. He will have cramping if he goes out and about, and he still does not want to eat at work - so he struggles with gaining weight but then loses it when he works. It does appear that his weight has gone to 111 lb from a low of 103 lb. He is using protein shakes with some success as well. He is not comfortable with going on something like Humira at this time r/t cancer warning. He does a lot better when he does not work, but can not afford to retire. For now will continue the budesonide and wait and watch to see if he has progressive improvement. ROV 6-8 weeks. Medications: New dicyclomine 20 mg PO QID 30 days 120 tabs 6RF R10.9 - Unspecified abdominal pain Discontinued mesalamine Pt can not swallow generic r/t size Discontinued Reason: Doctor's Order 4.8 grams (4 x 1.2 gram) PO QAM 120 tabs 6RF NS dicyclomine Discontinued Reason: Doctor's Order 10 mg PO QID 360 caps 1RF R10.9 - Unspecified abdominal pain TODAY'S VISIT. Some things are better, he is gaining weight and having less cramping, but he still has a lot of variability with the stooling. Sometimes his stills are formed, sometimes he has looser stools. He noted that, with eating a lot of salmon, which he buys frozen changes the color of his stools to the same color of the salmon. He wonders if they are injected with dye - which some meats are to be more attractive to shoppers. He notes that the frozen dates are in 2021 despite the use by date being in the future. He has intermittent small amts of RB in the stooling. He continues on 4 budesinide a day. He will have cramping that is relieved with passing gas. He also continues on dicyclomine. He question if his hemorrhoids are flaring as he has rectal burning. We discuss using prep H suppositories as he does not like to use rectal crams r/t messiness. His integrated specialists gave him [id number] peptide to promote healing. ROV 8 weeks. [facility] Medical History HTN (hypertension) COVID-19 vaccine series completed Asthma Seasonal allergies Neurodermatitis [id number] transgender person Ulcerative colitis Anxiety Surgical History Hx of nasal septoplasty History of esophagogastroduodenoscopy (EGD) Hx of colonoscopy 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 H/O carpal tunnel repair Social History Household Members: None Are you a primary care team coordinator scheduler to a significant other at home: No Do you presently have visiting nurse or other home services: No Alcohol intake: current Alcohol intake frequency: holidays/special occasions only Patient Tobacco Use Status: Never used Tobacco Substance Use Type: Marijuana Current occupational status: employed Current occupation: [employer] Review of Systems Const Denies fatigue, Denies fever(s), Denies night sweats, Denies poor appetite and Denies weight loss ENT Reports Normal hearing present, Denies dental pain, Denies dysphagia, Denies hearing loss, Denies mouth pain, Denies odynophagia, Denies throat swelling, Denies tongue swelling and Reports other (Dentition adequate) Card Reports no additional complaints Resp Reports no additional complaints GI Details: Denies abdominal pain, Denies melena, Reports bloating, Reports hematochezia, Denies constipation, Denies GI cramping, Denies dysphagia, Denies excessive flatus, Denies early satiety, Denies heartburn, Reports diarrhea, Denies nausea, Denies odynophagia, Denies vomiting and Denies hematemesis Skin/Breast Denies pruritus, Denies lesions, Denies rash and Denies jaundice Neuro Reports Normal hearing present and Denies Abnormal speech present Endo Denies fatigue Aller/Immun Denies throat swelling and Denies tongue swelling Physical Exam Vital Signs: Last Vital Signs Pulse 75 02/18/24 11:26 BP 155/74 H 02/18/24 11:26 BMI result Body Mass Index 22.0 Const General: cooperative, no acute distress, well developed and well groomed Nutritional Appearance: average body habitus and well nourished Orientation/consciousness: oriented to person, oriented to place and oriented to time Limitations: language barrier HEENT Head: Yes normocephalic and Yes atraumatic Eyes General: appearance normal, both eyes and all related structures Pupils: Equal, round and reactive pupils present Neck Neck: Yes normal visual inspection and Yes no lymphadenopathy Thyroid: Thyroid normal Resp Effort & Inspection: normal respiratory effort and able to speak in complete sentences Auscultation: clear to auscultation bilaterally Cardio Rate: regular rate Rhythm: regular rhythm Heart sounds: Normal, physiologic split S2 sound present Peripheral pulses: radial pulses present and posterior tibial pulses present GI Inspection: No distended and No Abdominal panniculus present Palpation (GI): Soft to palpation, nontender, no guarding, not rigid and No hepatosplenomegaly present Percussion: Yes normal to percussion Auscultation: normal bowel sounds Rectal Exam - Male: Yes deferred Skin General skin exam: no rashes or lesions noted, turgor normal, skin not dry, no jaundice, No spider nevi and no striae Rashes: no rashes Nails: normal Neuro General: oriented to person, oriented to place and oriented to time Cranial nerves: Yes Equal, round and reactive pupils present and Yes Normal hearing present Speech: No Abnormal speech present Extrem General: Yes normal to inspection, No clubbing, No cyanosis and No edema Psych Appearance: grossly normal and well kempt Mental Status: mental status grossly normal Speech and movement: Normal speech and movement present Affect: normal affect Attitude: cooperative Thought process: Normal thought process present and not confabulating Thought content: Normal thought content present Insight: Limited insight present (Psych) Judgement: Limited judgement present (Psych) Assessment & Plan Assessment & Plan (1) Tubular adenoma of colon: Comment: Last scope 02/2022 repeat in 2 years due to ulcerative colitis Code(s): D12.6 - Benign neoplasm of colon, unspecified Category: Medical (2) GERD (gastroesophageal reflux disease): Code(s): K21.9 - Gastro-esophageal reflux disease without esophagitis Category: Medical (3) Ulcerative colitis: Code(s): K51.90 - Ulcerative colitis, unspecified, without complications Category: Medical (4) C. difficile colitis: Code(s): A04.72 - Enterocolitis due to Clostridium difficile, not specified as recurrent Category: Medical (5) Rectal bleeding: Code(s): K62.5 - Hemorrhage of anus and rectum Category: Medical Plan Some things are better, he is gaining weight and having less cramping, but he still has a lot of variability with the stooling. Sometimes his stills are formed, sometimes he has looser stools. He noted that, with eating a lot of salmon, which he buys frozen changes the color of his stools to the same color of the salmon. He wonders if they are injected with dye - which some meats are to be more attractive to shoppers. He notes that the frozen dates are in 2021 despite the use by date being in the future. He has intermittent small amts of RB in the stooling. He continues on 4 budesinide a day. He will have cramping that is relieved with passing gas. He also continues on dicyclomine. He question if his hemorrhoids are flaring as he has rectal burning. We discuss using prep H suppositories as he does not like to use rectal crams r/t messiness. His integrated specialists gave him [id number]-[id number] peptide to promote healing. ROV 8 weeks. Medications: Changed From Lialda 4.8 grams (4 x 1.2 gram) PO DAILY 30 days 120 tabs 6RF NS K51.90 - Ulcerative colitis, unspecified, without complications To Lialda (mesalamine) 4.8 grams (4 x 1.2 gram) PO DAILY 120 tabs 6RF 30 days NS K51.90 - Ulcerative colitis, unspecified, without complications Refilled budesonide DR-ER 12 mg (4 x 3 mg) PO QAM 120 ea 3RF K51.90 - Ulcerative colitis, unspecified, without complications dicyclomine 20 mg PO QID 120 tabs 6RF 30 days R10.9 - Unspecified abdominal pain pantoprazole 20 mg PO DAILY 90 tabs 2RF K21.9 - Gastro-esophageal reflux disease without esophagitis Coding Level of Care Code Est Pt Level 3 (09219) Diagnoses Tubular adenoma of colon D12.6 GERD (gastroesophageal reflux disease) K21.9 Ulcerative colitis K51.90 C. difficile colitis A04.72 Rectal bleeding K62.5
== END 2024-02-18 12:52 | disposition home or self-care (01) ==
PROVIDERS: PCP Nurse Practitioner Family; Visit Provider Nurse Practitioner
DX: D12.6 Benign neoplasm of colon, unspecified (principal); K21.9 Gastro-esophageal reflux disease without esophagitis; K51.90 Ulcerative colitis, unspecified, without complications; A04.72 Enterocolitis due to Clostridium difficile, not specified as recurrent; K62.5 Hemorrhage of anus and rectum
CPT/HCPCS: 99213

== ENCOUNTER → 2024-02-18 11:20 | Outpatient (BNVA) | payer MEDICARE, MEDICAID, SELFPAY | PROVIDERS: PCP Nurse Practitioner Family; Visit Provider Nurse Practitioner | DX: D12.6 Benign neoplasm of colon, unspecified (principal); K21.9 Gastro-esophageal reflux disease without esophagitis; K51.90 Ulcerative colitis, unspecified, without complications; K62.5 Hemorrhage of anus and rectum; A04.72 Enterocolitis due to Clostridium difficile, not specified as recurrent | CPT/HCPCS: 99212 ==

== ENCOUNTER 2024-04-28 10:46 | Outpatient (AMB) | payer MEDICARE, MEDICAID, SELFPAY ==
--- NOTE | 2024-04-28 11:00 | MHC.OFFVIS ---
Vital Signs 04/28/24 11:02 Height 5 ft 3 in Weight 130 lb 8.218 oz BMI 23.1 BP 163/84 H Blood Pressure Location Rt brachial Position Sitting Pulse 71 Intake Visit Reasons: 8 week follow up Intake Note: [place] returns in 8 weeks follow up of UC. CC: Patient states that he was eating some protein bars with alcohol sugars and he was having abdominal bloating. He d/c protein bars and is already feeling better. He states that he stools are formed now but sometimes it has blood in it. Per patient he's had a few episodes of dizziness sometimes with nausea. Awning Maker And Installer Required: No Accompanied by: Self / Same As Patient Allergies clindamycin [CLINDAMYCIN] Allergy (Intermediate, Verified 04/28/24 11:14) HIVES egg Allergy (Intermediate, Verified 04/28/24 11:14) Hives Penicillins [PENICILLINS] Allergy (Intermediate, Verified 04/28/24 11:14) RASH,HIVES Sulfa (Sulfonamide Antibiotics) [SULFA(SULFONAMIDE ANTIBIOTICS)] Allergy (Intermediate, Verified 04/28/24 11:14) RASH,HIVES HPI HPI 8 week follow up: Details: Assessment & Plan (1) Tubular adenoma of colon: Comment: Last scope 02/2022 repeat in 2 years due to ulcerative colitis Code(s): D12.6 - Benign neoplasm of colon, unspecified Category: Medical (2) GERD (gastroesophageal reflux disease): Code(s): K21.9 - Gastro-esophageal reflux disease without esophagitis Category: Medical (3) Ulcerative colitis: Code(s): K51.90 - Ulcerative colitis, unspecified, without complications Category: Medical (4) C. difficile colitis: Code(s): A04.72 - Enterocolitis due to Clostridium difficile, not specified as recurrent Category: Medical (5) Rectal bleeding: Code(s): K62.5 - Hemorrhage of anus and rectum Category: Medical Plan Some things are better, he is gaining weight and having less cramping, but he still has a lot of variability with the stooling. Sometimes his stills are formed, sometimes he has looser stools. He noted that, with eating a lot of salmon, which he buys frozen changes the color of his stools to the same color of the salmon. He wonders if they are injected with dye - which some meats are to be more attractive to shoppers. He notes that the frozen dates are in 2021 despite the use by date being in the future. He has intermittent small amts of RB in the stooling. He continues on 4 budesinide a day. He will have cramping that is relieved with passing gas. He also continues on dicyclomine. He question if his hemorrhoids are flaring as he has rectal burning. We discuss using prep H suppositories as he does not like to use rectal crams r/t messiness. His integrated specialists gave him BPC-157 peptide to promote healing. ROV 8 weeks. Medications: Changed From Lialda 4.8 grams (4 x 1.2 gram) PO DAILY 30 days 120 tabs 6RF NS K51.90 - Ulcerative colitis, unspecified, without complications To Lialda (mesalamine) 4.8 grams (4 x 1.2 gram) PO DAILY 120 tabs 6RF 30 days NS K51.90 - Ulcerative colitis, unspecified, without complications Refilled budesonide DR-ER 12 mg (4 x 3 mg) PO QAM 120 ea 3RF K51.90 - Ulcerative colitis, unspecified, without complications dicyclomine 20 mg PO QID 120 tabs 6RF 30 days R10.9 - Unspecified abdominal pain pantoprazole 20 mg PO DAILY 90 tabs 2RF K21.9 - Gastro-esophageal reflux disease without esophagitis TODAY'S VISIT. He is gaining weight!! He has been supplementing with protein bars called One but he was having gas and bloating form the alcohol sugars! He was eating a lot of them and this may have been driving some of his continued bowel sx. He just stopped them about a week ago. He found he has been having less blood in the stools since stopping, his HB also was worse. We will get a fecal calprotecctin and consider weaning the budesinide at this time. Start with decreasing 1 tablet for 2 weeks, etc. ROV 6 weeks. [facility] Medical History HTN (hypertension) COVID-19 vaccine series completed Asthma Seasonal allergies Neurodermatitis [id number] transgender person Ulcerative colitis Anxiety Surgical History Hx of nasal septoplasty History of esophagogastroduodenoscopy (EGD) Hx of colonoscopy 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 H/O carpal tunnel repair Social History Household Members: None Are you a primary rn intensive care unit to a significant other at home: No Do you presently have visiting nurse or other home services: No Alcohol intake: current Alcohol intake frequency: holidays/special occasions only Patient Tobacco Use Status: Never used Tobacco Substance Use Type: Marijuana Current occupational status: employed Current occupation: [employer] Denies fatigue, Denies fever(s), Denies night sweats, Denies poor appetite, Reports weight gain and Denies weight loss ENT Reports Normal hearing present, Denies dental pain, Denies dysphagia, Denies hearing loss, Denies mouth pain, Denies odynophagia, Denies throat swelling, Denies tongue swelling and Reports other (Dentition adequate) Card Reports no additional complaints Resp Reports no additional complaints GI Details: Denies abdominal pain, Denies melena, Reports bloating, Reports hematochezia, Denies constipation, Denies GI cramping, Denies dysphagia, Denies excessive flatus, Denies early satiety, Denies heartburn, Denies diarrhea, Reports loose stools, Denies nausea, Denies odynophagia, Denies vomiting and Denies hematemesis Skin/Breast Denies pruritus, Denies lesions, Denies rash and Denies jaundice Neuro Reports Normal hearing present and Denies Abnormal speech present Endo Denies fatigue Aller/Immun Denies throat swelling and Denies tongue swelling Physical Exam Vital Signs: Last Vital Signs Pulse 71 04/28/24 11:02 BP 163/84 H 04/28/24 11:02 BMI result Body Mass Index 23.1 Const General: cooperative, no acute distress, well developed and well groomed Nutritional Appearance: well nourished and thin Orientation/consciousness: oriented to person, oriented to place and oriented to time Limitations: No language barrier HEENT Head: Yes normocephalic and Yes atraumatic Eyes General: appearance normal, both eyes and all related structures Pupils: Equal, round and reactive pupils present Neck Neck: Yes normal visual inspection and Yes no lymphadenopathy Thyroid: Thyroid normal Resp Effort & Inspection: normal respiratory effort and able to speak in complete sentences Auscultation: clear to auscultation bilaterally Cardio Rate: regular rate Rhythm: regular rhythm Heart sounds: Normal, physiologic split S2 sound present Peripheral pulses: radial pulses present and posterior tibial pulses present GI Inspection: No distended and No Abdominal panniculus present Palpation (GI): Soft to palpation, nontender, no guarding, not rigid and No hepatosplenomegaly present Percussion: Yes normal to percussion Auscultation: normal bowel sounds Rectal Exam - Male: Yes deferred Skin General skin exam: no rashes or lesions noted, turgor normal, skin not dry, no jaundice, No spider nevi and no striae Rashes: no rashes Nails: normal Neuro General: oriented to person, oriented to place and oriented to time Cranial nerves: Yes Equal, round and reactive pupils present and Yes Normal hearing present Speech: No Abnormal speech present Extrem General: Yes normal to inspection, No clubbing, No cyanosis and No edema Psych Appearance: grossly normal and well kempt Mental Status: mental status grossly normal Speech and movement: Normal speech and movement present Affect: normal affect Attitude: cooperative Thought process: Normal thought process present and not confabulating Thought content: Normal thought content present Insight: Fair insight present (Psych) Judgement: Fair judgement present (Psych) Assessment & Plan Assessment & Plan (1) Ulcerative colitis: Code(s): K51.90 - Ulcerative colitis, unspecified, without complications Category: Medical Plan He is gaining weight!! He has been supplementing with protein bars called One but he was having gas and bloating form the alcohol sugars! He was eating a lot of them and this may have been driving some of his continued bowel sx. He just stopped them about a week ago. He found he has been having less blood in the stools since stopping, his HB also was worse. We will get a fecal calprotecctin and consider weaning the budesinide at this time. Start with decreasing 1 tablet for 2 weeks, etc. ROV 6 weeks. Orders: Orders Calprotectin, Fecal Today K51.90 - Ulcerative colitis, unspecified, without complications Coding Level of Care Code Est Pt Level 3 (54232) Diagnoses Ulcerative colitis K51.90
[2024-04-28 11:02] VITALS: BP 163/84; PULSE 71; BMI 23.1
== END 2024-04-28 11:41 | disposition home or self-care (01) ==
PROVIDERS: PCP Nurse Practitioner Family; Visit Provider Nurse Practitioner
DX: K51.90 Ulcerative colitis, unspecified, without complications (principal)
CPT/HCPCS: 99213

== ENCOUNTER → 2024-04-28 10:46 | Outpatient (BNVA) | payer MEDICARE, MEDICAID, SELFPAY | PROVIDERS: PCP Nurse Practitioner Family; Visit Provider Nurse Practitioner | DX: K51.90 Ulcerative colitis, unspecified, without complications (principal) | CPT/HCPCS: 99212 ==

== ENCOUNTER 2024-05-03 13:49 | Outpatient (REF) | payer MEDICARE, MEDICAID, SELFPAY ==
[2024-05-09 20:13] LABS: Calprotectin, Fecal 479 mcg/g
== END 2024-05-03 13:50 | disposition home or self-care (01) ==
LOC: HO.LNP 13:49
PROVIDERS: Visit Provider Nurse Practitioner
DX: K51.90 Ulcerative colitis, unspecified, without complications (principal)
CPT/HCPCS: 83993

== ENCOUNTER 2024-09-08 13:53 | Outpatient (AMB) | payer MEDICARE, MEDICAID, SELFPAY ==
[2024-09-08 13:58] VITALS: BP 146/69; PULSE 65; BMI 22.6
--- NOTE | 2024-09-08 13:58 | A.OFFVIS_ITS ---
Vital Signs 09/08/24 13:58 Height 5 ft 3 in Weight 127 lb 6.835 oz BMI 22.6 BP 146/69 H Blood Pressure Location Lt brachial Position Sitting Pulse 65 Intake Visit Reasons: follow up Intake Note: [place] returns in follow up of UC and lab. CC: Patient states that he is getting better but he's had a rough year . Patient state that he had Covid and he was put on Paxlovid which interacted with his BP medications. He states that he still feeling tired and having brain fog. He had to increase his anxiety medication. His anxiety medications was increased per patient and this helped with abdominal cramping. Shuttle Buggy Operator Required: No Accompanied by: Self / Same As Patient Allergies clindamycin [CLINDAMYCIN] Allergy (Intermediate, Verified 09/08/24 14:17) HIVES egg Allergy (Intermediate, Verified 09/08/24 14:17) Hives Penicillins [PENICILLINS] Allergy (Intermediate, Verified 09/08/24 14:17) RASH,HIVES Sulfa (Sulfonamide Antibiotics) [SULFA(SULFONAMIDE ANTIBIOTICS)] Allergy (Intermediate, Verified 09/08/24 14:17) RASH,HIVES Medication List - Last Reconciled 09/08/24 by JANIYA Napier albuterol sulfate 90 mcg/actuation (ProAir HFA) 1 inh inhalation Q4H PRN amlodipine 2.5 mg PO BID cetirizine (Zyrtec) 10 mg PO DAILY PRN cholecalciferol (vitamin D3) 50 mcg PO DAILY clonazepam 1 mg PO BID hydrocortisone 2.5% (Proctosol HC) 1 appl MT BID PRN Lialda (mesalamine) 4.8 grams (4 x 1.2 gram) PO DAILY 30 days NS methylcellulose (laxative) (Citrucel Sugar Free oral powder) 1 tbsp PO BID metoprolol succinate ER 50 mg PO BID [Naltrexone 6 mg PO BEDTIME] needle (disp) 18 G (BD Regular [place]) As directed ondansetron 4 mg PO BID-TID PRN pantoprazole 20 mg PO BID sennosides (Senokot) 17.2 mg PO BEDTIME syringe (disposable) (BD Tuberculin Slip-Tip) As directed testosterone cypionate 50 mg IM QWEEK trazodone 25 mg PO DAILY HPI HPI follow up: Details: ssessment & Plan (1) Ulcerative colitis: Code(s): K51.90 - Ulcerative colitis, unspecified, without complications Category: Medical Plan He is gaining weight!! He has been supplementing with protein bars called One but he was having gas and bloating form the alcohol sugars! He was eating a lot of them and this may have been driving some of his continued bowel sx. He just stopped them about a week ago. He found he has been having less blood in the stools since stopping, his HB also was worse. We will get a fecal calprotecctin and consider weaning the budesinide at this time. Start with decreasing 1 tablet for 2 weeks, etc. ROV 6 weeks. Orders: Orders Calprotectin, Fecal Today K51.90 - Ulcerative colitis, unspecified, without complications TODAY'S VISIT. He missed his last appt r/t a COVID infection. He is doing better now, but he also started having HTN and was started on medications....but the Paxlovid interacted and it really caused him distress. He developed ankle and facial swelling that resolved after being off of the paxlovid. He is having fatigue and brain fog since. He is seeing a physical fitness trainer at [facility] and they say he has some aortic regurg. His BP also came down once he was put on clonazepam and trazodone. 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 His heat is broken down and they are ignoring concerns. He feels better now. He had been having CIC but his is using Citrucel and senna. Better managing his stress has improved his IBS sx as well. Of course he also continues on his Lialda. He is off of any steroids that we had him on temporarily before we discovered the C diff infection. He also just had a cataract removed! ROV 6 mos. [facility] Medical History Weight loss, abnormal Rectal bleeding C. difficile colitis Acute diarrhea HTN (hypertension) COVID-19 vaccine series completed Asthma Seasonal allergies Neurodermatitis [id number] transgender person Ulcerative colitis Anxiety Surgical History History of cataract surgery Hx of nasal septoplasty History of esophagogastroduodenoscopy (EGD) Hx of colonoscopy 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 H/O carpal tunnel repair Social History Household Members: None Are you a primary manager home healthcare to a significant other at home: No Do you presently have visiting nurse or other home services: No Alcohol intake: current Alcohol intake frequency: holidays/special occasions only Patient Tobacco Use Status: Never used Tobacco Substance Use Type: Marijuana Current occupational status: employed Current occupation: [email or web address] Reports fatigue, Denies fever(s), Denies night sweats, Denies poor appetite, Reports weight gain and Denies weight loss ENT Reports Normal hearing present, Denies dental pain, Denies dysphagia, Denies hearing loss, Denies mouth pain, Denies odynophagia, Denies throat swelling, Denies tongue swelling and Reports other (Dentition adequate) Card Reports no additional complaints Resp Reports no additional complaints GI Details: Denies abdominal pain, Denies melena, Denies bloating, Denies hematochezia, Reports constipation, Reports GI cramping, Denies dysphagia, Denies excessive flatus, Denies early satiety, Reports heartburn, Denies diarrhea, Denies nausea, Denies odynophagia, Denies vomiting and Denies hematemesis Skin/Breast Denies pruritus, Denies lesions, Denies rash and Denies jaundice Neuro Reports Normal hearing present and Denies Abnormal speech present Endo Reports fatigue Aller/Immun Denies throat swelling and Denies tongue swelling Physical Exam Vital Signs: Last Vital Signs Pulse 65 09/08/24 13:58 BP 146/69 H 09/08/24 13:58 BMI result Body Mass Index 22.6 Const General: cooperative, no acute distress, well developed and well groomed Nutritional Appearance: average body habitus and well nourished Orientation/consciousness: oriented to person, oriented to place and oriented to time Limitations: No language barrier HEENT Head: Yes normocephalic and Yes atraumatic Eyes General: appearance normal, both eyes and all related structures Pupils: Equal, round and reactive pupils present Neck Neck: Yes normal visual inspection and Yes no lymphadenopathy Thyroid: Thyroid normal Resp Effort & Inspection: normal respiratory effort and able to speak in complete sentences Auscultation: clear to auscultation bilaterally Cardio Rate: regular rate Rhythm: regular rhythm Heart sounds: Normal, physiologic split S2 sound present Peripheral pulses: radial pulses present and posterior tibial pulses present GI Inspection: No distended and No Abdominal panniculus present Palpation (GI): Soft to palpation, nontender, no guarding, not rigid and No hepatosplenomegaly present Percussion: Yes normal to percussion Auscultation: normal bowel sounds Rectal Exam - Male: Yes deferred Skin General skin exam: no rashes or lesions noted, turgor normal, skin not dry, no jaundice, No spider nevi and no striae Rashes: no rashes Nails: normal Neuro General: oriented to person, oriented to place and oriented to time Cranial nerves: Yes Equal, round and reactive pupils present and Yes Normal hearing present Speech: No Abnormal speech present Extrem General: Yes normal to inspection, No clubbing, No cyanosis and No edema Psych Appearance: grossly normal and well kempt Mental Status: mental status grossly normal Speech and movement: Normal speech and movement present Affect: normal affect Attitude: cooperative Thought process: Normal thought process present and not confabulating Thought content: Normal thought content present Insight: Good insight present (Psych) Judgement: Good judgement present (Psych) Assessment & Plan Assessment & Plan (1) Ulcerative colitis: Code(s): K51.90 - Ulcerative colitis, unspecified, without complications Category: Medical (2) GERD (gastroesophageal reflux disease): Code(s): K21.9 - Gastro-esophageal reflux disease without esophagitis Category: Medical (3) Tubular adenoma of colon: Comment: Last scope 03/2023-repeat 2 years; 02/2022 repeat in 2 years due to ulcerative colitis Code(s): D12.6 - Benign neoplasm of colon, unspecified Category: Medical Plan He missed his last appt r/t a COVID infection. He is doing better now, but he also started having HTN and was started on medications....but the Paxlovid interacted and it really caused him distress. He developed ankle and facial swelling that resolved after being off of the paxlovid. He is having fatigue and brain fog since. He is seeing a physical fitness trainer at [facility] and they say he has some aortic regurg. His BP also came down once he was put on clonazepam and trazodone. 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 His heat is broken down and they are ignoring concerns. He feels better now. He had been having CIC but his is using Citrucel and senna. Better managing his stress has improved his IBS sx as well. Of course he also continues on his Lialda. He is off of any steroids that we had him on temporarily before we discovered the C diff infection. He also just had a cataract removed! ROV 6 mos. Medications: New sennosides (Senokot) 17.2 mg (2 x 8.6 mg) PO BEDTIME 60 tabs 6RF pantoprazole 20 mg PO BID 60 tabs 6RF K21.9 - Gastro-esophageal reflux disease without esophagitis Refilled Lialda (mesalamine) 4.8 grams (4 x 1.2 gram) PO DAILY 120 tabs 6RF 30 days NS K51.90 - Ulcerative colitis, unspecified, without complications Discontinued ondansetron Discontinued Reason: Doctor's Order 4 mg PO BID-TID PRN 60 tabs 0RF nausea and vomiting Coding Level of Care Code Est Pt Level 3 (79460) Diagnoses Ulcerative colitis K51.90 GERD (gastroesophageal reflux disease) K21.9 Tubular adenoma of colon D12.6
== END 2024-09-08 15:05 | disposition home or self-care (01) ==
PROVIDERS: PCP Nurse Practitioner Family; Visit Provider Nurse Practitioner
DX: K51.90 Ulcerative colitis, unspecified, without complications (principal); K21.9 Gastro-esophageal reflux disease without esophagitis; D12.6 Benign neoplasm of colon, unspecified
CPT/HCPCS: 99213

== ENCOUNTER → 2024-09-08 13:53 | Outpatient (BNVA) | payer MEDICARE, MEDICAID, SELFPAY | PROVIDERS: PCP Nurse Practitioner Family; Visit Provider Nurse Practitioner | DX: K51.90 Ulcerative colitis, unspecified, without complications (principal); K21.9 Gastro-esophageal reflux disease without esophagitis; D12.6 Benign neoplasm of colon, unspecified | CPT/HCPCS: 99212 ==

== ENCOUNTER 2024-10-01 11:52 | Outpatient (REF) | payer MEDICARE, MEDICAID, SELFPAY | END 2024-10-01 11:53 | disposition home or self-care (01) | LOC: HO.LAB 11:52 | PROVIDERS: PCP Nurse Practitioner Family; Visit Provider Nurse Practitioner | DX: Z13.89 Encounter for screening for other disorder (principal) ==

== ENCOUNTER 2024-10-02 11:26 | Outpatient (REF) | payer MEDICARE, MEDICAID, SELFPAY ==
[2024-10-02 13:57] LABS: Adenovirus F 40/41 Not Detected (Not Detect.); Astrovirus Not Detected (Not Detect.); Campylobacter Not Detected (Not Detect.); Cryptosporidium Not Detected (Not Detect.); Cyclospora cayetanensis Not Detected (Not Detect.); E. coli EAEC Not Detected (Not Detect.); E. coli EPEC Not Detected (Not Detect.); E. coli ETEC Not Detected (Not Detect.); E. coli STEC Not Detected (Not Detect.); Entamoeba histolytica Not Detected (Not Detect.); Giardia lamblia Not Detected (Not Detect.); Plesiomonas shigelloides Not Detected (Not Detect.); Rotavirus A Not Detected (Not Detect.); Salmonella Not Detected (Not Detect.); Sapovirus Not Detected (Not Detect.); Shigella sp./EIEC Not Detected (Not Detect.); Vibrio Not Detected (Not Detect.); Vibrio Cholerae Not Detected (Not Detect.); Yersinia enterocolitica Not Detected (Not Detect.)
[2024-10-02 14:15] LABS: CDiff Gene PCR POSITIVE (Negative)
[2024-10-02 14:16] LABS: CDIFF Internal ctrl Dots and bkg OK (V); CDiff Toxin Negative (Negative)
[2024-10-06 15:57] LABS: Norovirus Stool PCR NOT DETECTED
[2024-10-11 03:14] LABS: Calprotectin, Fecal >8000 mcg/g
== END 2024-10-02 11:27 | disposition home or self-care (01) ==
LOC: HO.LNP 11:26
PROVIDERS: Visit Provider Nurse Practitioner
DX: R19.7 Diarrhea, unspecified (principal)
CPT/HCPCS: 83993; 87324; 87493; 87507

== ENCOUNTER 2024-10-19 11:07 | Outpatient (AMB) | payer MEDICARE, MEDICAID, SELFPAY ==
[2024-10-19 11:13] VITALS: BP 127/65; PULSE 60; BMI 21.9
--- NOTE | 2024-10-19 11:13 | MHC.OFFVIS ---
Vital Signs 10/19/24 11:13 Height 5 ft 3 in Weight 123 lb 7.342 oz BMI 21.9 BP 127/65 Blood Pressure Location Lt brachial Position Sitting Pulse 60 Intake Visit Reasons: Follow up labs/Per February Desai Intake Note: [place] presents to in office follow up of labs. CC: Patient states that he completed another round of abx for C diff and felt worst after completing it. He also c/o itching rash mostly from his waist up and face that started 2-3 weeks ago. Per patient BMs have a little bit of red blood in it and reports abdominal cramping in the mornings mostly, poor appetite, and nausea. Prescription Benefit Specialist Required: No Accompanied by: Self / Same As Patient Allergies clindamycin [CLINDAMYCIN] Allergy (Intermediate, Verified 10/19/24 11:22) HIVES egg Allergy (Intermediate, Verified 10/19/24 11:22) Hives Penicillins [PENICILLINS] Allergy (Intermediate, Verified 10/19/24 11:22) RASH,HIVES Sulfa (Sulfonamide Antibiotics) [SULFA(SULFONAMIDE ANTIBIOTICS)] Allergy (Intermediate, Verified 10/19/24 11:22) RASH,HIVES HPI HPI Follow up labs/Per February Giselle: Details: He missed his last appt r/t a COVID infection. He is doing better now, but he also started having HTN and was started on medications....but the Paxlovid interacted and it really caused him distress. He developed ankle and facial swelling that resolved after being off of the paxlovid. He is having fatigue and brain fog since. He is seeing a asphalt raker at [facility] and they say he has some aortic regurg. His BP also came down once he was put on clonazepam and trazodone. 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 His heat is broken down and they are ignoring concerns. He feels better now. He had been having CIC but his is using Citrucel and senna. Better managing his stress has improved his IBS sx as well. Of course he also continues on his Lialda. He is off of any steroids that we had him on temporarily before we discovered the C diff infection. He also just had a cataract removed! ROV 6 mos. On 10/13/24 @ 10:18 Sumi Desai Wrote To Sumi Desai (2) To my knowledge Repatha will not be a problem. However it does seem that it is his ulcerative colitis that is very out of control. Please call and find out how he is doing and if the antibiotic has not help I would like to make a plan going forward to get him on a better ulcerative colitis medication. On 10/12/24 @ 10:47 Earlene Dewitt Wrote To Sumi Desai patient reports he also saw his asphalt raker and his cholesterol was extremely high. patient reports asphalt raker wants to put him on Repatha and patient wants to ensure this will not be an issue w/ his UC as well. On 10/12/24 @ 10:33 Earlene Dewitt Wrote To Sumi Desai telephone call returned to patient. patient reports at conversation with Sumi over the phone patient states Sumi wanted to follow up and possibly culture it. patient reports the treatment has not helped at all and he feels it has gotten worse. patient reports itchy bumps and flaking around eyes. patient reports he had some weeping out of left eye, he reports he previously had cataract surgery on that eye. patient reports its light in color. patient reports he finished up the medication for the 'shingles' as he was starting the Dificid. patient experienced constipation and extreme pain due to inability to go at that moment. patient reports he took Metamucil that morning and Milk of Mag during the day and night and that helped get things moving. patient reports he took Milk of Mag again last night, didn't want to end up bound up. patient reports he then experienced diarrhea but is better now. FYI stool calprotectin is back and its >8000. please advise LABS Laboratory Tests 12/08/23 05/03/24 10/02/24 06:30 05:45 07:45 Stool Calprotectin 95 479 H >8000 H 10/02/24-[address]: ORDERED: GI Panel Test Result Flag Reference Campylobacter Not Detected Not Detect. P. shigelloides Not Detected Not Detect. Salmonella Not Detected Not Detect. Vibrio Not Detected Not Detect. Vibrio Cholerae Not Detected Not Detect. Y. enterocolit. Not Detected Not Detect. E. coli EAEC Not Detected Not Detect. E. coli EPEC Not Detected Not Detect. E. coli ETEC Not Detected Not Detect. E. coli STEC Not Detected Not Detect. E. coli O157 Not applicable Not Detect. E. coli containing the O157 antigen are a subset of Shiga-like toxin-producing E. coli (STEC). Shigella/EIEC Not Detected Not Detect. Cryptosporidium Not Detected Not Detect. Cyclospora Not Detected Not Detect. E. histolytica Not Detected Not Detect. Giardia lamblia Not Detected Not Detect. Adenovirus Not Detected Not Detect. Astrovirus Not Detected Not Detect. Norovirus See Comment Not Detect. Specimen sent to reference lab for further testing. Rotavirus A Not Detected Not Detect. Sapovirus Not Detected Not Detect. TODAYS VISIT Itchy rash looks like IBD rash very generalized. Will start prednisone and try to get RInvoq. May need to progress through Humira, but he has had bad experiences wtih this and dislikes the injection part. ROV 2 weeks. [facility] Medical History Acute diarrhea Weight loss, abnormal Rectal bleeding C. 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 H/O carpal tunnel repair Social History Household Members: None Are you a primary care taker to a significant other at home: No Do you presently have visiting nurse or other home services: No Alcohol intake: current Alcohol intake frequency: holidays/special occasions only Patient Tobacco Use Status: Never used Tobacco Substance Use Type: Marijuana Current occupational status: employed Current occupation: [employer] Review of Systems Const Denies fatigue, Denies fever(s), Denies night sweats, Reports poor appetite and Reports weight loss ENT Reports Normal hearing present, Denies dental pain, Denies dysphagia, Denies hearing loss, Denies mouth pain, Denies odynophagia, Denies throat swelling, Denies tongue swelling and Reports other (Dentition adequate) Card Reports no additional complaints Resp Reports no additional complaints GI Details: Denies abdominal pain, Denies melena, Denies bloating, Reports hematochezia, Denies constipation, Denies GI cramping, Denies dysphagia, Denies excessive flatus, Denies early satiety, Reports heartburn, Denies diarrhea, Reports loose stools, Denies nausea, Denies odynophagia, Denies vomiting and Denies hematemesis Musc Reports arthralgias Skin/Breast Denies pruritus, Denies lesions, Reports rash and Denies jaundice Neuro Reports Normal hearing present and Denies Abnormal speech present Endo Denies fatigue Aller/Immun Denies throat swelling and Denies tongue swelling Physical Exam Vital Signs: Last Vital Signs Pulse 60 10/19/24 11:13 BP 127/65 10/19/24 11:13 BMI result Body Mass Index 21.9 Const General: cooperative, no acute distress, well developed and well groomed Nutritional Appearance: average body habitus and well nourished Orientation/consciousness: oriented to person, oriented to place and oriented to time Limitations: No language barrier HEENT Head: Yes normocephalic and Yes atraumatic Eyes General: appearance normal, both eyes and all related structures Pupils: Equal, round and reactive pupils present Neck Neck: Yes normal visual inspection and Yes no lymphadenopathy Thyroid: Thyroid normal Resp Effort & Inspection: normal respiratory effort and able to speak in complete sentences Auscultation: clear to auscultation bilaterally Cardio Rate: regular rate Rhythm: regular rhythm Heart sounds: Normal, physiologic split S2 sound present Peripheral pulses: radial pulses present and posterior tibial pulses present GI Inspection: No distended and No Abdominal panniculus present Palpation (GI): Soft to palpation, nontender, no guarding, not rigid and No hepatosplenomegaly present Percussion: Yes normal to percussion Auscultation: normal bowel sounds Rectal Exam - Male: Yes deferred Skin Other: Rash appears to be scaly and flaking no vesicles or pustules mostly flat, generalized and not following a dermatome General skin exam: no rashes or lesions noted, dry skin, no jaundice, No spider nevi and no striae Rashes: rashes noted (Generalized bilateral head ears and shoulders) Nails: normal Neuro General: oriented to person, oriented to place and oriented to time Cranial nerves: Yes Equal, round and reactive pupils present and Yes Normal hearing present Speech: No Abnormal speech present Extrem General: Yes normal to inspection, No clubbing, No cyanosis and No edema Psych Appearance: grossly normal and well kempt Mental Status: mental status grossly normal Speech and movement: Normal speech and movement present Affect: normal affect Attitude: cooperative Thought process: Normal thought process present and not confabulating Thought content: Normal thought content present Insight: Fair insight present (Psych) and Limited insight present (Psych) Judgement: Fair judgement present (Psych) and Limited judgement present (Psych) Results Reviewed Results Reviewed: Laboratory Tests 12/08/23 05/03/24 10/02/24 06:30 05:45 07:45 Stool Calprotectin 95 479 H >8000 H 10/02/24-[address]: ORDERED: GI Panel Test Result Flag Reference Campylobacter Not Detected Not Detect. P. shigelloides Not Detected Not Detect. Salmonella Not Detected Not Detect. Vibrio Not Detected Not Detect. Vibrio Cholerae Not Detected Not Detect. Y. enterocolit. Not Detected Not Detect. E. coli EAEC Not Detected Not Detect. E. coli EPEC Not Detected Not Detect. E. coli ETEC Not Detected Not Detect. E. coli STEC Not Detected Not Detect. E. coli O157 Not applicable Not Detect. E. coli containing the O157 antigen are a subset of Shiga-like toxin-producing E. coli (STEC). Shigella/EIEC Not Detected Not Detect. Cryptosporidium Not Detected Not Detect. Cyclospora Not Detected Not Detect. E. histolytica Not Detected Not Detect. Giardia lamblia Not Detected Not Detect. Adenovirus Not Detected Not Detect. Astrovirus Not Detected Not Detect. Norovirus See Comment Not Detect. Specimen sent to reference lab for further testing. Rotavirus A Not Detected Not Detect. Sapovirus Not Detected Not Detect. Assessment & Plan Assessment & Plan (1) Ulcerative colitis: Code(s): K51.90 - Ulcerative colitis, unspecified, without complications Category: Medical Plan Itchy rash looks like IBD rash very generalized. Will start prednisone and try to get RInvoq. May need to progress through Humira, but he has had bad experiences wtih this and dislikes the injection part. ROV 2 weeks. Medications: New prednisone 3 tabs for 3 days, 2 for 2 days than continue on 2 tabs day orally daily; 63 tabs 3RF K51.90 - Ulcerative colitis, unspecified, without complications upadacitinib ER (Rinvoq) 45 mg PO DAILY 56 tabs 1RF 8 weeks K51.90 - Ulcerative colitis, unspecified, without complications Coding Level of Care Code Est Pt Level 3 (61933) Diagnoses Ulcerative colitis K51.90
== END 2024-10-19 12:23 | disposition home or self-care (01) ==
PROVIDERS: PCP Nurse Practitioner Family; Visit Provider Nurse Practitioner
DX: K51.90 Ulcerative colitis, unspecified, without complications (principal)
CPT/HCPCS: 99213

== ENCOUNTER → 2024-10-19 11:07 | Outpatient (BNVA) | payer MEDICARE, MEDICAID, SELFPAY | PROVIDERS: PCP Nurse Practitioner Family; Visit Provider Nurse Practitioner | DX: K51.90 Ulcerative colitis, unspecified, without complications (principal); R21 Rash and other nonspecific skin eruption | CPT/HCPCS: 99212 ==

== ENCOUNTER 2024-10-29 11:55 | Outpatient (REF) | payer MEDICARE, MEDICAID, SELFPAY ==
[2024-11-01 11:29] LABS: TS Negative Control Passed; TS Panel A 0; TS Panel B 0; TS Positive Control Passed; TSpotTB Negative (Negative)
== END 2024-10-29 11:56 | disposition home or self-care (01) ==
LOC: HO.LAB 11:55
PROVIDERS: PCP Nurse Practitioner Family; Visit Provider Nurse Practitioner
DX: K51.90 Ulcerative colitis, unspecified, without complications (principal)
CPT/HCPCS: 36415; 86481

== ENCOUNTER 2024-11-23 12:02 | Outpatient (AMB) | payer MEDICARE, MEDICAID, SELFPAY ==
--- NOTE | 2024-11-23 12:05 | MHC.OFFVIS ---
Vital Signs 11/23/24 12:09 Height 5 ft 3 in Weight 129 lb 10.109 oz BMI 23.0 BP 144/76 H Blood Pressure Location Lt brachial Position Sitting Pulse 59 Intake Visit Reasons: IBD 2 week f/u (r/s from 11/02) Intake Note: Som presents in office today in follow up of IBD. CC: Per patient when he was placed on the Prednisone he immediately begin to feel better but at the end of it and when he started the Rinvoq his legs began to swelled up. The swelling got better once he completely discontinued the prednisone. Per patient he has noticed that the legs swelling happens when his UC flares up. Per patient now he does not have as much energy and his GI symptoms were a little bit better while on the Prednisone. Cloth Winder Required: No Accompanied by: Self / Same As Patient Allergies clindamycin [CLINDAMYCIN] Allergy (Intermediate, Verified 11/23/24 12:22) HIVES egg Allergy (Intermediate, Verified 11/23/24 12:22) Hives Penicillins [PENICILLINS] Allergy (Intermediate, Verified 11/23/24 12:22) RASH,HIVES Sulfa (Sulfonamide Antibiotics) [SULFA(SULFONAMIDE ANTIBIOTICS)] Allergy (Intermediate, Verified 11/23/24 12:22) RASH,HIVES HPI HPI IBD 2 week f/u (r/s from 11/02): Details: Assessment & Plan (1) Ulcerative colitis: Code(s): K51.90 - Ulcerative colitis, unspecified, without complications Category: Medical Plan Itchy rash looks like IBD rash very generalized. Will start prednisone and try to get RInvoq. May need to progress through Humira, but he has had bad experiences with this and dislikes the injection part. ROV 2 weeks. Medications: New prednisone 3 tabs for 3 days, 2 for 2 days than continue on 2 tabs day orally daily; 63 tabs 3RF K51.90 - Ulcerative colitis, unspecified, without complications upadacitinib ER (Rinvoq) 45 mg PO DAILY 56 tabs 1RF 8 weeks K51.90 - Ulcerative colitis, unspecified, without complications CORRESPONDENCE On 10/07/24 @ 12:25 Sumi Desai Wrote To Sumi Desai I called Som today from home. He was very concerned that the stool cx showed c diff, but I explain that there is not toxin. I really think that the infection has over activated his immune system and it is really the underlying UC that needs better tx. I am considering Humira. However, he now has a facial rash that is possibly shingles. He is on valcyclovire. Considering this, not a good time to start immune therapy. There is some question if this is really shingles, as it is NOT painful, weepy or crusting and he has a chronic underlying rash w/o a specific dx that he knows that is tx'ed with narcan. It is not improving despite almost a week with the antiviral. This may need swabbing or bx if worsens. Will tx with difficid for now and consider further therapy depending on progression of rash. Sumi Desai completed item. On 10/13/24 @ 16:47 Sam Caldera Wrote To Sumi Desai Added on 10/19, per patient request he could only come on Friday d/t work. On 10/13/24 @ 11:03 Sumi Desai Wrote To Sam Caldera V PLEASE BRING SOM IN PER SOMETIME NEXT WEEK WE DISCUSSED. On 10/13/24 @ 10:26 Earlene Dewitt Wrote To Sumi Desai patient states its hard to say if its helping. he states he actually has been feeling worse since starting. On 10/13/24 @ 10:18 Sumi Desai Wrote To Sumi Desai (2) To my knowledge Repatha will not be a problem. However it does seem that it is his ulcerative colitis that is very out of control. Please call and find out how he is doing and if the antibiotic has not help I would like to make a plan going forward to get him on a better ulcerative colitis medication TODAY'S VISIT. He started the Rinvoq 11/02. He stopped the prednisone w/o taper and is having some sx rebound and fatigue. In general, the Rinvoq is controlling his sx, he has soft stools at times but he ate a lot of grapes and this does soften his stools. He has been having formed BM's most days. He also had a COVID vaccine abou 4 days ago, this is another c/f to fatigue and he DID have severe myalgias with this - which he attributes to switching from Pfizer to Moderna. Because of the possible immune suppression, I don't want to consider restarting predninsone to alleviate adrenal fatigue, and he thinks he can go forward. He also has not had RSV yet. He has to get allergy injections every week that he has to work around. He also is considering shingles vaccine. He also had some leg swelling with the prednisone that is resolving with cessation. He generally has a LOT of energy when he is on prednisone, which is part of the s/e profile. We will repeat CRP and stool josefina. He did not stop lialda so I instruct him to stop it now. He continues on his pantoprazole 20 mg twice a day with good control of his GERD. He will be due for colonoscopy 2024. He should be on the 45mg dose for 8 weeks (until about 01/03) then progress to 30mg depending on response. ROV mid January [facility] Medical History Acute diarrhea Weight loss, abnormal Rectal bleeding C. difficile colitis HTN (hypertension) COVID-19 vaccine series completed Asthma Seasonal allergies Neurodermatitis [id number] transgender person Ulcerative colitis Anxiety Surgical History History of cataract surgery Hx of nasal septoplasty History of esophagogastroduodenoscopy (EGD) Hx of colonoscopy 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 H/O carpal tunnel repair Social History Household Members: None Are you a primary director of home care hospice to a significant other at home: No Do you presently have visiting nurse or other home services: No Alcohol intake: current Alcohol intake frequency: holidays/special occasions only Patient Tobacco Use Status: Never used Tobacco Substance Use Type: Marijuana Current occupational status: employed Current occupation: [employer] Review of Systems Const Reports fatigue, Denies fever(s), Denies night sweats, Denies poor appetite and Denies weight loss Eyes Details: glasses Reports requires corrective lenses ENT Reports Normal hearing present, Denies dental pain, Denies dysphagia, Denies hearing loss, Denies mouth pain, Denies odynophagia, Denies throat swelling, Denies tongue swelling and Reports other (Dentition adequate) Card Reports no additional complaints Resp Reports no additional complaints GI Details: Denies abdominal pain, Denies melena, Denies bloating, Denies hematochezia, Denies constipation, Denies GI cramping, Denies dysphagia, Denies excessive flatus, Denies early satiety, Reports heartburn, Denies diarrhea, Denies nausea, Denies odynophagia, Denies vomiting and Denies hematemesis Musc Reports myalgias and Reports arthralgias Skin/Breast Denies pruritus, Denies lesions, Denies rash and Denies jaundice Neuro Reports Normal hearing present and Denies Abnormal speech present Endo Reports fatigue Aller/Immun Denies throat swelling and Denies tongue swelling Physical Exam Vital Signs: Last Vital Signs Pulse 59 11/23/24 12:09 BP 144/76 H 11/23/24 12:09 BMI result Body Mass Index 23.0 Const General: cooperative, no acute distress, well developed, tired appearing and well groomed Nutritional Appearance: average body habitus and well nourished Orientation/consciousness: oriented to person, oriented to place and oriented to time Limitations: No language barrier HEENT Head: Yes normocephalic and Yes atraumatic Eyes General: appearance normal, both eyes and all related structures Pupils: Equal, round and reactive pupils present Neck Neck: Yes normal visual inspection and Yes no lymphadenopathy Thyroid: Thyroid normal Resp Effort & Inspection: normal respiratory effort and able to speak in complete sentences Auscultation: clear to auscultation bilaterally Cardio Rate: regular rate Rhythm: regular rhythm Heart sounds: Normal, physiologic split S2 sound present Peripheral pulses: radial pulses present and posterior tibial pulses present GI Inspection: No distended and No Abdominal panniculus present Palpation (GI): Soft to palpation, nontender, no guarding, not rigid and No hepatosplenomegaly present Percussion: Yes normal to percussion Auscultation: normal bowel sounds Rectal Exam - Male: Yes deferred Skin General skin exam: no rashes or lesions noted, turgor normal, skin not dry, no jaundice, No spider nevi and no striae Rashes: no rashes Nails: normal Neuro General: oriented to person, oriented to place and oriented to time Cranial nerves: Yes Equal, round and reactive pupils present and Yes Normal hearing present Speech: No Abnormal speech present Extrem General: Yes normal to inspection, No clubbing, No cyanosis and No edema Psych Appearance: grossly normal and well kempt Mental Status: mental status grossly normal Speech and movement: Normal speech and movement present Affect: normal affect Attitude: cooperative Thought process: Normal thought process present and not confabulating Thought content: Normal thought content present Insight: Good insight present (Psych) Judgement: Good judgement present (Psych) Assessment & Plan Assessment & Plan (1) Ulcerative colitis: Code(s): K51.90 - Ulcerative colitis, unspecified, without complications Category: Medical (2) GERD (gastroesophageal reflux disease): Code(s): K21.9 - Gastro-esophageal reflux disease without esophagitis Category: Medical (3) Tubular adenoma of colon: Comment: Last scope 03/2023-repeat 2 years; 02/2022 repeat in 2 years due to ulcerative colitis Code(s): D12.6 - Benign neoplasm of colon, unspecified Category: Medical Plan He started the Rinvoq 11/02. He stopped the prednisone w/o taper and is having some sx rebound and fatigue. In general, the Rinvoq is controlling his sx, he has soft stools at times but he ate a lot of grapes and this does soften his stools. He has been having formed BM's most days. He also had a COVID vaccine abou 4 days ago, this is another c/f to fatigue and he DID have severe myalgias with this - which he attributes to switching from Pfizer to Moderna. Because of the possible immune suppression, I don't want to consider restarting predninsone to alleviate adrenal fatigue, and he thinks he can go forward. He also has not had RSV yet. He has to get allergy injections every week that he has to work around. He also is considering shingles vaccine. He also had some leg swelling with the prednisone that is resolving with cessation. He generally has a LOT of energy when he is on prednisone, which is part of the s/e profile. We will repeat CRP and stool josefina. He did not stop lialda so I instruct him to stop it now. He continues on his pantoprazole 20 mg twice a day with good control of his GERD. He will be due for colonoscopy 2024. He should be on the 45mg dose for 8 weeks (until about 01/03) then progress to 30mg depending on response. ROV mid January Orders: Orders Calprotectin, Fecal Today K51.90 - Ulcerative colitis, unspecified, without complications C Reactive Protein Today K51.90 - Ulcerative colitis, unspecified, without complications Medications: Refilled pantoprazole 20 mg PO BID 60 tabs 6RF K21.9 - Gastro-esophageal reflux disease without esophagitis Discontinued Lialda (mesalamine) Discontinued Reason: Doctor's Order 4.8 grams (4 x 1.2 gram) PO DAILY 30 days 120 tabs 6RF NS K51.90 - Ulcerative colitis, unspecified, without complications On Hold prednisone Hold Comment: Doctor's Order 3 tabs for 3 days, 2 for 2 days than continue on 2 tabs day orally daily; 63 tabs 3RF K51.90 - Ulcerative colitis, unspecified, without complications Coding Level of Care Code Est Pt Level 3 (46377) Diagnoses Ulcerative colitis K51.90 GERD (gastroesophageal reflux disease) K21.9 Tubular adenoma of colon D12.6
[2024-11-23 12:09] VITALS: BP 144/76; PULSE 59; BMI 23.0
== END 2024-11-23 15:08 | disposition home or self-care (01) ==
PROVIDERS: PCP Nurse Practitioner Family; Visit Provider Nurse Practitioner
DX: K51.90 Ulcerative colitis, unspecified, without complications (principal); K21.9 Gastro-esophageal reflux disease without esophagitis; D12.6 Benign neoplasm of colon, unspecified
CPT/HCPCS: 99213

== ENCOUNTER → 2024-11-23 12:02 | Outpatient (BNVA) | payer MEDICARE, MEDICAID, SELFPAY | PROVIDERS: PCP Nurse Practitioner Family; Visit Provider Nurse Practitioner | DX: K51.90 Ulcerative colitis, unspecified, without complications (principal); K21.9 Gastro-esophageal reflux disease without esophagitis; D12.6 Benign neoplasm of colon, unspecified | CPT/HCPCS: 99212 ==

== ENCOUNTER 2024-12-10 07:30 | Outpatient (REF) | payer MEDICARE, MEDICAID, SELFPAY ==
[2024-12-17 16:47] LABS: Calprotectin, Fecal 38 mcg/g
== END 2024-12-10 07:31 | disposition home or self-care (01) ==
LOC: HO.LNP 07:30
PROVIDERS: Visit Provider Nurse Practitioner
DX: K51.90 Ulcerative colitis, unspecified, without complications (principal)
CPT/HCPCS: 83993

== ENCOUNTER 2025-01-17 11:58 | Outpatient (REF) | payer MEDICARE, MEDICAID, SELFPAY ==
[2025-01-17 12:18] LABS: MANUAL DIFF FLAG NO
[2025-01-17 12:36] LABS: Basophils Percent Auto 0.7 % (0-2); Eosinophils Absolute Auto 0.1 X10*3/uL (0.0-0.4); Hematocrit 38.8 % (42.0-52.0); Hemoglobin 12.9 g/dl (14.0-18.0); Imm Gran Abs Auto 0.03 X10*3/uL (0.00-0.03); Imm Gran Pct Auto 0.5 % (0.0-0.4); Lymphocytes Absolute Auto 1.8 X10*3/uL (1.2-4.9); Lymphocytes Percent Auto 30.6 % (20-40); Mean Corpuscular HGB Conc 33.2 g/dl (31.0-36.0); Mean Corpuscular Hemoglobin 30.4 pg (27.0-33.0); Mean Corpuscular Volume 91.5 fL (80.0-98.0); Mean Platelet Volume 9.4 fL (9.4-12.4); Monocytes Absolute Auto 0.5 X10*3/uL (0.1-1.2); Monocytes Percent Auto 8.3 % (2-11); Neutrophils Absolute Auto 3.4 x10*3/uL (2.0-8.3); Neutrophils Percent Auto 58.9 % (45-73); Platelet Count 280 X10*3/uL (160-400); Red Blood Count 4.24 X10*6/uL (4.60-5.80); Red Cell Distribution Width 15.2 % (11.0-16.0); White Blood Count 5.8 X10*3/uL (4.8-10.8)
[2025-01-17 13:09] LABS: Alanine Aminotransferase 22 U/L (0-40); Alkaline Phosphatase 60 U/L (39-117); Anion Gap 11 (12-20); Aspartate Amino Transferase 21 U/L (5-37); Bilirubin Total 0.6 mg/dL (0.0-1.0); Blood Urea Nitrogen 14 mg/dL (9-16); C Reactive Protein 0.28 mg/dL (< or = 0.50); Calcium 9.2 mg/dL (8.4-10.2); Carbon Dioxide 26 mmol/L (22-29); Chloride 108 mmol/L (96-108); Estimated Glomerular Filt Rate > 60; Glucose Random 128 mg/dL (60-115); Potassium 3.8 mmol/L (3.3-5.1); Sodium 141 mmol/L (135-145); Total Protein 6.9 g/dL (6.5-8.0)
[2025-01-17 13:14] LABS: Erythrocyte Sedimentation Rate 6 MM/HR (0-15)
== END 2025-01-17 11:59 | disposition home or self-care (01) ==
LOC: HO.LAB 11:58
PROVIDERS: Nurse Practitioner; PCP Nurse Practitioner Family; Visit Provider Internal Medicine Gastroenterology
DX: K51.90 Ulcerative colitis, unspecified, without complications (principal); K75.81 Nonalcoholic steatohepatitis (NASH)
CPT/HCPCS: 36415; 80053; 85025; 85652; 86140

== ENCOUNTER 2025-01-18 12:35 | Outpatient (REF) | payer MEDICARE, MEDICAID, SELFPAY ==
[2025-01-22 17:23] LABS: Lactoferrin, Fecal, Quant. <6.25 mcg/mL (<7.25)
== END 2025-01-18 12:36 | disposition home or self-care (01) ==
LOC: HO.LNP 12:35
PROVIDERS: Visit Provider Internal Medicine Gastroenterology
DX: K51.50 Left sided colitis without complications (principal); K51.90 Ulcerative colitis, unspecified, without complications
CPT/HCPCS: 83631

== ENCOUNTER 2025-01-24 14:19 | Outpatient (REF) | payer MEDICARE, MEDICAID, SELFPAY ==
[2025-01-24 17:09] LABS: C Reactive Protein 0.53 mg/dL (< or = 0.50)
[2025-01-24 17:27] LABS: Ferritin 146 ng/mL (20-250); Vitamin D 25-OH Total 102.9 ng/mL (>30)
[2025-01-24 17:43] LABS: Folate 5.4 ng/mL (> or = 4.0); Vitamin B12 480 pg/mL (200-900)
[2025-01-25 07:29] LABS: IgA 154 mg/dL (70-320); IgG 867 mg/dL (600-1540); IgM 78 mg/dL (50-300)
[2025-01-26 22:43] LABS: Zinc 61 mcg/dL (60-130)
[2025-01-27 03:58] LABS: Beta-Gamma Tocopherol 1.2 mg/L (<=4.3); Vitamin A 71 mcg/dL (38-98)
[2025-01-27 14:53] LABS: Gliadin Deamidated IgA Ab <1.0 U/mL; Gliadin Deamidated IgG Ab <1.0 U/mL
[2025-01-28 16:12] LABS: Nicotinamide <20 ng/mL (see note); Vit B3 - Nicotinic Acid <20 ng/mL (see note)
[2025-01-28 16:32] LABS: Vitamin B6 7.7 ng/mL (2.1-21.7)
[2025-01-28 21:23] LABS: Vitamin K1 348 pg/mL (130-1500)
[2025-01-28 21:33] LABS: Transglutaminase Ab IgG <1.0 U/mL
[2025-01-29 11:04] LABS: Vitamin C 0.4 mg/dL (0.2-2.1)
[2025-01-29 15:49] LABS: Vitamin B5 (Pantothenic Acid) <=40 ng/mL (<275)
[2025-01-31 19:23] LABS: Class Almond 0; Class Brazil Nut 0; Class Cashew 0; Class Codfish 0; Class Cow's Milk 0; Class Egg white 0; Class Hazelnut 0/1; Class Macadamia Nut 0; Class Peanut 0; Class Salmon 0; Class Scallop 0; Class Sesame Seed 0; Class Shrimp 0; Class Soybean 0; Class Tuna 0; Class Walnut 0/1; Class Wheat 0; F001-IgE Egg White <0.10 kU/L; F002-IgE Milk <0.10 kU/L; F003-IgE Codfish <0.10 kU/L; F004-IgE Wheat <0.10 kU/L; F010-IgE Sesame Seed <0.10 kU/L; F013-IgE Peanut <0.10 kU/L; F014-IgE Soybean <0.10 kU/L; F017-IgE Hazelnut (Filbert) 0.28 kU/L; F018-IgE Brazil Nut <0.10 kU/L; F020-IgE Almond <0.10 kU/L; F024-IgE Shrimp <0.10 kU/L; F040-IgE Tuna <0.10 kU/L; F041 IgE Salmon <0.10 kU/L; F202-IgE Cashew Nut <0.10 kU/L; F256-IgE Walnut 0.15 kU/L; F338-IgE Scallop <0.10 kU/L; F345-IgE Macadmia Nut <0.10 kU/L
[2025-02-01 00:44] LABS: VITAMIN D (1,25 OH) D3 79 pg/mL; Vit D (1,25-Dihydroxy) Total 79 pg/mL (18-72); Vitamin D (1,25 OH) D2 <8 pg/mL
[2025-02-01 01:38] LABS: Vitamin B1 8 nmol/L (8-30)
[2025-02-03 17:08] LABS: Histamine Plasma <1.5 ng/mL (< OR = 1.8)
== END 2025-01-24 14:20 | disposition home or self-care (01) ==
LOC: HO.LAB 14:19
PROVIDERS: PCP Nurse Practitioner Family; Visit Provider Internal Medicine Gastroenterology
DX: K51.90 Ulcerative colitis, unspecified, without complications (principal); R19.7 Diarrhea, unspecified; R10.33 Periumbilical pain; G89.29 Other chronic pain; Z91.09 Other allergy status, other than to drugs and biological substances
CPT/HCPCS: 36415; 82180; 82306; 82607; 82652; 82728; 82746; 82784; 83088; 83520; 84207; 84425; 84446; 84590; 84591; 84597; 84630; 86003; 86140; 86258; 86364; 99212

== ENCOUNTER 2025-01-24 14:19 | Outpatient (AMB) | payer MEDICARE, MEDICAID, SELFPAY ==
[2025-01-24 14:27] VITALS: BP 141/82; PULSE 67; BMI 23.6
--- NOTE | 2025-01-24 14:27 | MHC.OFFVIS ---
Vital Signs 01/24/25 14:27 Height 5 ft 3 in Weight 133 lb 2.547 oz BMI 23.6 BP 141/82 H Blood Pressure Location Lt brachial Position Sitting Pulse 67 Intake Visit Reasons: UC - Ok per Dr. Richards Intake Note: Patient in office today in follow up of UC. CC: Patient states that he took himself off the Rinvoq but it was making him feel terrible. He also took himself off the budesonide. He started taking Lialda and per patient that helped him feel better. He reports seeing a little pink with BM this morning probably from hemorrhoids per patient. PT c/o brain fog, feeling exhausted all the time, when waking up in the morning, and feeling his legs very heavy and tired. PT reports that most recent labs showed he was anemic. Offline Cutter Required: No Accompanied by: Self / Same As Patient Allergies clindamycin [CLINDAMYCIN] Allergy (Intermediate, Verified 01/24/25 14:37) HIVES egg Allergy (Intermediate, Verified 01/24/25 14:37) Hives Penicillins [PENICILLINS] Allergy (Intermediate, Verified 01/24/25 14:37) RASH,HIVES Sulfa (Sulfonamide Antibiotics) [SULFA(SULFONAMIDE ANTIBIOTICS)] Allergy (Intermediate, Verified 01/24/25 14:37) RASH,HIVES HPI HPI UC - Ok per Dr. Richards: Details: 64 yr old m with hx of UC since 1998 and c diff in the past RECAP: Tried rinvoq made him sick so stopped Last colo:2022--mild erythema only, path with focal mild-mod colitis LABS: chronic mild anemia lactoferrin neg LFT and BMP nml crp-- nml INTERIM: He has fatigue he feels gen unwell with exhaustion he is only taking lialda and he feels it helps the stool has improved and not loose--mostly formed he has cramping in the morning mucous noted in stools EXAM: GENERAL: The patient is well developed and nontoxic. VITAL SIGNS:see workflow HEENT: Nonicteric sclerae, PERRLA, EOMI. Oropharynx clear. Moist mucous membranes. Conjunctivae appear well perfused. No thyroid mass. CHEST: Chest wall is nontender. HEART: Regular rate and rhythm without murmurs. LUNGS: Clear to auscultation bilaterally. ABDOMEN: Soft, positive bowel sounds, nontender, no organomegaly.no flank tenderness SKIN: No rash, no excessive bruising, petechiae, or purpura. NEUROLOGIC: Cranial nerves II-XII intact without motor/sensory deficit. Psych: normal affect A?P: 1/ Fatigue and malaise, no evidence of active inflammation on lab markers, ? subacute IBD< other etiology ? sleep d/o, food allergy, IBS PLAN: 1/ check mineral and vitamin levels 2/ egd and colo --suprep 3/ rast 4/ letter for work for heavy lifting 5/ add rowasa and see if helps [facility] Medical History Acute diarrhea Weight loss, abnormal Rectal bleeding C. difficile colitis HTN (hypertension) COVID-19 vaccine series completed Asthma Seasonal allergies Neurodermatitis [id number] transgender person Ulcerative colitis Anxiety Surgical History History of cataract surgery Hx of nasal septoplasty History of esophagogastroduodenoscopy (EGD) Hx of colonoscopy 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 H/O carpal tunnel repair Social History Household Members: None Are you a primary residential child care counselor to a significant other at home: No Do you presently have visiting nurse or other home services: No Alcohol intake: current Alcohol intake frequency: holidays/special occasions only Patient Tobacco Use Status: Never used Tobacco Substance Use Type: Marijuana Current occupational status: employed Current occupation: [employer] Physical Exam Vital Signs: Last Vital Signs Pulse 67 01/24/25 14:27 BP 141/82 H 01/24/25 14:27 BMI result Body Mass Index 23.6 Assessment & Plan Assessment & Plan (1) Ulcerative colitis: Code(s): K51.90 - Ulcerative colitis, unspecified, without complications Category: Medical Plan: as above Orders: Orders Vitamin B1 Today K51.90 - Ulcerative colitis, unspecified, without complications Vitamin B5 (Pantothenic Acid) Today K51.90 - Ulcerative colitis, unspecified, without complications Vitamin B6 Today K51.90 - Ulcerative colitis, unspecified, without complications Vitamin D 25-OH Total Today K51.90 - Ulcerative colitis, unspecified, without complications Vitamin E Today K5 - Ulcerative colitis, unspecified, without complications Ferritin Today - Ulcerative colitis, unspecified, without complications Histamine Plasma Today - Ulcerative colitis, unspecified, without complications Rast Allergen Today - Ulcerative colitis, unspecified, without complications, Z91.018 - Allergy to other foods Vitamin A Today - Ulcerative colitis, unspecified, without complications Vitamin B12 and Folate Today - Ulcerative colitis, unspecified, without complications Vitamin B3 (Niacin) Today - Ulcerative colitis, unspecified, without complications Vitamin C Today - Ulcerative colitis, unspecified, without complications Vitamin D 1,25 dihydroxy Today - Ulcerative colitis, unspecified, without complications Vitamin K1 Today - Ulcerative colitis, unspecified, without complications Zinc Today - Ulcerative colitis, unspecified, without complications Tryptase Today - Ulcerative colitis, unspecified, without complications, R19.7 - Diarrhea, unspecified Gliadin Ab Panel Today - Ulcerative colitis, unspecified, without complications Transglutaminase Ab IgG Today G89.29 - Other chronic pain, K5 - Ulcerative colitis, unspecified, without complications, R10.33 - Periumbilical pain Immunoglobulins,IgG IgA IgM Today - Ulcerative colitis, unspecified, without complications Medications: New mesalamine with cleansing wipe 4 gram/60 mL (Rowasa rectal suspension enema) 4 grams (60 mL) RI BEDTIME 4 ea 2RF sodium,potassium,mag sulfates 17.5-3.13-1.6 gram (Suprep Bowel Prep Kit) DILUTE; drink 1/2 at 6-8 pm and half at 11 PM- 1AM 354 mL 0RF Coding Level of Care Code Est Pt Level 4 (55357) Diagnoses Ulcerative colitis
== END 2025-01-24 15:01 | disposition home or self-care (01) ==
PROVIDERS: PCP Nurse Practitioner Family; Visit Provider Internal Medicine Gastroenterology
DX: K51.90 Ulcerative colitis, unspecified, without complications (principal)
CPT/HCPCS: 99214

== ENCOUNTER 2025-03-09 13:51 | Outpatient (AMB) | payer MEDICARE, MEDICAID, SELFPAY ==
--- NOTE | 2025-03-09 13:53 | MHC.OFFVIS ---
Vital Signs 03/09/25 13:55 Height 5 ft 1 in Weight 131 lb BMI 24.7 BP 151/75 H Blood Pressure Location Lt brachial Position Sitting Pulse 75 Pulse Oximetry (%) 97 Oxygen Delivery Method Room Air Intake Visit Reasons: 6 month follow up Ulcerative colitis Intake Note: Patient 6 month follow up for Ulcerative Colitis. Patient denies any GI issues for today, Prednisone is helping him a lot. 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 Accompanied by: Self / Same As Patient Allergies clindamycin [CLINDAMYCIN] Allergy (Intermediate, Verified 03/09/25 13:54) HIVES egg Allergy (Intermediate, Verified 03/09/25 13:54) Hives Penicillins [PENICILLINS] Allergy (Intermediate, Verified 03/09/25 13:54) RASH,HIVES Sulfa (Sulfonamide Antibiotics) [SULFA(SULFONAMIDE ANTIBIOTICS)] Allergy (Intermediate, Verified 03/09/25 13:54) RASH,HIVES HPI HPI 6 month follow up Ulcerative colitis: Details: Assessment & Plan (1) Ulcerative colitis: Code(s): K51.90 - Ulcerative colitis, unspecified, without complications Category: Medical (2) GERD (gastroesophageal reflux disease): Code(s): K21.9 - Gastro-esophageal reflux disease without esophagitis Category: Medical (3) Tubular adenoma of colon: Comment: Last scope 03/2023-repeat 2 years; 02/2022 repeat in 2 years due to ulcerative colitis Code(s): D12.6 - Benign neoplasm of colon, unspecified Category: Medical Plan He started the Rinvoq 11/02. He stopped the prednisone w/o taper and is having some sx rebound and fatigue. In general, the Rinvoq is controlling his sx, he has soft stools at times but he ate a lot of grapes and this does soften his stools. He has been having formed BM's most days. He also had a COVID vaccine abou 4 days ago, this is another c/f to fatigue and he DID have severe myalgias with this - which he attributes to switching from Pfizer to Moderna. Because of the possible immune suppression, I don't want to consider restarting predninsone to alleviate adrenal fatigue, and he thinks he can go forward. He also has not had RSV yet. He has to get allergy injections every week that he has to work around. He also is considering shingles vaccine. He also had some leg swelling with the prednisone that is resolving with cessation. He generally has a LOT of energy when he is on prednisone, which is part of the s/e profile. We will repeat CRP and stool josefina. He did not stop lialda so I instruct him to stop it now. He continues on his pantoprazole 20 mg twice a day with good control of his GERD. He will be due for colonoscopy 2024. He should be on the 45mg dose for 8 weeks (until about 01/03) then progress to 30mg depending on response. ROV mid January Orders: Orders Calprotectin, Fecal Today K51.90 - Ulcerative colitis, unspecified, without complications C Reactive Protein Today K51.90 - Ulcerative colitis, unspecified, without complications Medications: Refilled pantoprazole 20 mg PO BID 60 tabs 6RF K21.9 - Gastro-esophageal reflux disease without esophagitis Discontinued Lialda (mesalamine) Discontinued Reason: Doctor's Order 4.8 grams (4 x 1.2 gram) PO DAILY 30 days 120 tabs 6RF NS K51.90 - Ulcerative colitis, unspecified, without complications On Hold prednisone Hold Comment: Doctor's Order 3 tabs for 3 days, 2 for 2 days than continue on 2 tabs day orally daily; 63 tabs 3RF K51.90 - Ulcerative colitis, unspecified, without complications IN THE INTERIM HE SAW DR. ARAUZ SON WHILE I WAS OUT ON LEAVE HIS NOTE IS FOLLOWS: INTERIM: He has fatigue he feels gen unwell with exhaustion he is only taking lialda and he feels it helps the stool has improved and not loose--mostly formed he has cramping in the morning mucous noted in stools A?P: 1/ Fatigue and malaise, no evidence of active inflammation on lab markers, ? subacute IBD< other etiology ? sleep d/o, food allergy, IBS PLAN: 1/ check mineral and vitamin levels 2/ egd and colo --suprep 3/ rast 4/ letter for work for heavy lifting 5/ add rowasa and see if helps Assessment & Plan (1) Ulcerative colitis: Code(s): - Ulcerative colitis, unspecified, without complications Category: Medical Plan: as above Orders: Orders Vitamin B1 Today - Ulcerative colitis, unspecified, without complications Vitamin B5 (Pantothenic Acid) Today - Ulcerative colitis, unspecified, without complications Vitamin B6 Today - Ulcerative colitis, unspecified, without complications Vitamin D 25-OH Total Today - Ulcerative colitis, unspecified, without complications Vitamin E Today - Ulcerative colitis, unspecified, without complications Ferritin Today - Ulcerative colitis, unspecified, without complications Histamine Plasma Today - Ulcerative colitis, unspecified, without complications Rast Allergen Today - Ulcerative colitis, unspecified, without complications, Z91.018 - Allergy to other foods Vitamin A Today - Ulcerative colitis, unspecified, without complications Vitamin B12 and Folate Today - Ulcerative colitis, unspecified, without complications Vitamin B3 (Niacin) Today - Ulcerative colitis, unspecified, without complications Vitamin C Today - Ulcerative colitis, unspecified, without complications Vitamin D 1,25 dihydroxy Today - Ulcerative colitis, unspecified, without complications Vitamin K1 Today - Ulcerative colitis, unspecified, without complications Zinc Today - Ulcerative colitis, unspecified, without complications Tryptase Today - Ulcerative colitis, unspecified, without complications, R19.7 - Diarrhea, unspecified Gliadin Ab Panel Today - Ulcerative colitis, unspecified, without complications Transglutaminase Ab IgG Today G89.29 - Other chronic pain, K5 - Ulcerative colitis, unspecified, without complications, R10.33 - Periumbilical pain Immunoglobulins,IgG IgA IgM Today - Ulcerative colitis, unspecified, without complications Medications: New mesalamine with cleansing wipe 4 gram/60 mL (Rowasa rectal suspension enema) 4 grams (60 mL) AL BEDTIME 4 ea 2RF sodium,potassium,mag sulfates 17.5-3.13-1.6 gram (Suprep Bowel Prep Kit) DILUTE; drink 1/2 at 6-8 pm and half at 11 PM- 1AM 354 mL 0RF Labs: Laboratory Tests 01/24/25 16:16 Ferritin 146 C-Reactive Protein 0.53 H Tryptase 7.6 Plasma Histamine <1.5 Vitamin A 71 Vitamin B1 8 Nicotinic Acid <20 Nicotinamide <20 Pantothenic Acid <=40 Vitamin B6 7.7 Vitamin B12 480 Vitamin C 0.4 25-OH Vitamin D Total 102.9 1,25 Dihydroxy Vit D 79 H 1,25 Dihydroxy Vit D2 <8 1,25 Dihydroxy Vit D3 79 Alpha-Tocopherol Vit E 22.0 H B- and G-Tocopherol 1.2 Vitamin K1 348 Folate 5.4 [place] Allergen IgE Ab <0.10 [place] Class 0 [place] Nut IgE Ab <0.10 Cashew Allergen IgE Ab <0.10 Codfish Allergen IgE Ab <0.10 Cow's Milk IgE Ab <0.10 Egg White IgE Ab <0.10 Hazelnut Allergen IgE 0.28 H Macadamia Nut IgE Ab <0.10 Peanut Allergen IgE Ab <0.10 [place] Allergen <0.10 [place]all[place] Allergen IgE Ab <0.10 Sesame Seed IgE Ab <0.10 Shrimp Allergen IgE Ab <0.10 Soybean Allergen IgE <0.10 Tuna Allergen IgE Ab <0.10 [place] Allergen IgE Ab 0.15 H [place] Class 0/1 Wheat Allergen IgE Ab <0.10 Hazelnut [place] Class 0/1 Zinc 61 IgG Total 867 IgA Total 154 IgM 78 Tiss Transglutamin IgG <1.0 Anti-Gliadin IgG Ab <1.0 Gliadin (Deamidat) IgA <1.0 CORRESPONDENCE On 10/07/24 @ 12:25 Sumi Desai Wrote To Sumi Desai I called Osm today from home. He was very concerned that the stool cx showed c diff, but I explain that there is not toxin. I really think that the infection has over activated his immune system and it is really the underlying UC that needs better tx. I am considering Humira. However, he now has a facial rash that is possibly shingles. He is on valcyclovire. Considering this, not a good time to start immune therapy. There is some question if this is really shingles, as it is NOT painful, weepy or crusting and he has a chronic underlying rash w/o a specific dx that he knows that is tx'ed with narcan. It is not improving despite almost a week with the antiviral. This may need swabbing or bx if worsens. Will tx with difficid for now and consider further therapy depending on progression of rash. Sumi Desai completed item. On 10/13/24 @ 16:47 Sam Caldera Wrote To Sumi Desai Added on 10/19, per patient request he could only come on Friday d/t work. On 10/13/24 @ 11:03 Sumi Desai Wrote To Sam Caldera V PLEASE BRING SOM IN PER SOMETIME NEXT WEEK WE DISCUSSED. On 10/13/24 @ 10:26 Earlene Dewitt Wrote To Sumi Desai patient states its hard to say if its helping. he states he actually has been feeling worse since starting. On 10/13/24 @ 10:18 Sumi Desai Wrote To Sumi Desai (2) To my knowledge Repatha will not be a problem. However it does seem that it is his ulcerative colitis that is very out of control. Please call and find out how he is doing and if the antibiotic has not help I would like to make a plan going forward to get him on a better ulcerative colitis medication. TODAY'S VISIT. Som started to do better when he got off of the Rinvoq and back onto his Lialda. While he was on the Rinvoq he developed an infection in his toe and a rather severe cold (and he never gets colds). However shortly after that he developed more cramping and his stomach became more irritable. He then sought Dr. Arauz son and at that time he had broken out again in that rash across his face and upper body and was feeling extremely fatigued. Dr. Arauz son ran a wide battery of tests and prescribed him Rinvoq along with mesalamine suppositories. The mesalamine suppositories only made his symptoms much worse and since it is similar to his Lialda actually the same medication, he stopped it. When I got back I put him on prednisone and this seems to have made him much much better very quickly and cleared up his rash. At this point, since he has had poor experiences with other immuno modulating drugs for IBD he would like to try to find an acceptable chronic prednisone dose. He also did not do well with budesonide although he did better on the 3 mg 3 times tablets that he did on the 12 mg. He is currently on 40 mg of prednisone. We discussed doing a very slow taper 10 mg a month and I will give him the 10 mg tablets to help facilitate this. He also will stay on the Lialda as this I think will help us spare the steroid and get to a lower maintenance dose in order to preserve his general health and minimize long-term steroid side effects. We are going to get a bone density test as a baseline given his high steroid use over his lifetime. Review all of the labs and except for very mild allergy to Chely nuts and walnuts there really was nothing of significance. He has a colonoscopy coming up in March along with an endoscopy. Return office visit in 3 months to see how he is doing with his taper and at that time we will go over the procedure results. If he needs me sooner because his symptoms we exacerbate of course he can call and make an appointment sooner. [facility] Medical History Acute diarrhea Weight loss, abnormal Rectal bleeding C. 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 H/O carpal tunnel repair Social History Household Members: None Are you a primary child care sitter to a significant other at home: No Do you presently have visiting nurse or other home services: No Alcohol intake: current Alcohol intake frequency: holidays/special occasions only Patient Tobacco Use Status: Never used Tobacco Substance Use Type: Marijuana Current occupational status: employed Current occupation: [employer] Review of Systems Const Denies fatigue, Denies fever(s), Denies night sweats, Denies poor appetite and Denies weight loss ENT Reports Normal hearing present, Denies dental pain, Denies dysphagia, Denies hearing loss, Denies mouth pain, Denies odynophagia, Denies throat swelling, Denies tongue swelling and Reports other (Dentition adequate) Card Reports no additional complaints Resp Reports no additional complaints GI Details: Denies abdominal pain, Denies melena, Reports bloating, Denies hematochezia, Denies constipation, Reports GI cramping, Denies dysphagia, Denies excessive flatus, Denies early satiety, Reports heartburn, Denies diarrhea, Reports loose stools, Denies nausea, Denies odynophagia, Denies vomiting and Denies hematemesis Skin/Breast Denies pruritus, Denies lesions, Denies rash and Denies jaundice Neuro Reports Normal hearing present and Denies Abnormal speech present Endo Denies fatigue Aller/Immun Denies throat swelling and Denies tongue swelling Physical Exam Vital Signs: Last Vital Signs Pulse 75 03/09/25 13:55 BP 151/75 H 03/09/25 13:55 Pulse Ox 97 03/09/25 13:55 Oxygen Delivery Method Room Air 03/09/25 13:55 BMI result Body Mass Index 24.7 Const General: cooperative, no acute distress, well developed and well groomed Nutritional Appearance: average body habitus and well nourished Orientation/consciousness: oriented to person, oriented to place and oriented to time Limitations: No language barrier HEENT Head: Yes normocephalic and Yes atraumatic Eyes General: appearance normal, both eyes and all related structures Pupils: Equal, round and reactive pupils present Neck Neck: Yes normal visual inspection and Yes no lymphadenopathy Thyroid: Thyroid normal Resp Effort & Inspection: normal respiratory effort and able to speak in complete sentences Auscultation: clear to auscultation bilaterally Cardio Rate: regular rate Rhythm: regular rhythm Heart sounds: Normal, physiologic split S2 sound present Peripheral pulses: radial pulses present and posterior tibial pulses present GI Inspection: No distended and No Abdominal panniculus present Palpation (GI): Soft to palpation, nontender, no guarding, not rigid and No hepatosplenomegaly present Percussion: Yes normal to percussion Auscultation: normal bowel sounds Rectal Exam - Male: Yes deferred Skin General skin exam: no rashes or lesions noted, turgor normal, skin not dry, no jaundice, No spider nevi and no striae Rashes: no rashes Nails: normal Neuro General: oriented to person, oriented to place and oriented to time Cranial nerves: Yes Equal, round and reactive pupils present and Yes Normal hearing present Speech: No Abnormal speech present Extrem General: Yes normal to inspection, No clubbing, No cyanosis and No edema Psych Appearance: grossly normal and well kempt Mental Status: mental status grossly normal Speech and movement: Normal speech and movement present Affect: normal affect Attitude: cooperative Thought process: Normal thought process present and not confabulating Thought content: Normal thought content present Insight: Fair insight present (Psych) Judgement: Fair judgement present (Psych) Results Reviewed Results Reviewed: Laboratory Tests 01/24/25 16:16 Ferritin 146 C-Reactive Protein 0.53 H Tryptase 7.6 Plasma Histamine <1.5 Vitamin A 71 Vitamin B1 8 Nicotinic Acid <20 Nicotinamide <20 Pantothenic Acid <=40 Vitamin B6 7.7 Vitamin B12 480 Vitamin C 0.4 25-OH Vitamin D Total 102.9 1,25 Dihydroxy Vit D 79 H 1,25 Dihydroxy Vit D2 <8 1,25 Dihydroxy Vit D3 79 Alpha-Tocopherol Vit E 22.0 H B- and G-Tocopherol 1.2 Vitamin K1 348 Folate 5.4 [place] Allergen IgE Ab <0.10 [place] Class 0 [place] Nut IgE Ab <0.10 Cashew Allergen IgE Ab <0.10 Codfish Allergen IgE Ab <0.10 Cow's Milk IgE Ab <0.10 Egg White IgE Ab <0.10 Hazel[place] Allergen IgE 0.28 H Macadamia Nut IgE Ab <0.10 Peanut Allergen IgE Ab <0.10 [place] Allergen <0.10 [place] Allergen IgE Ab <0.10 Sesame Seed IgE Ab <0.10 Shrimp Allergen IgE Ab <0.10 Soybean Allergen IgE <0.10 Tuna Allergen IgE Ab <0.10 [place] Allergen IgE Ab 0.15 H [place] Class 0/1 Wheat Allergen IgE Ab <0.10 [place]el[place] Class 0/1 Zinc 61 IgG Total 867 IgA Total 154 IgM 78 Tiss Transglutamin IgG <1.0 Anti-Gliadin IgG Ab <1.0 Gliadin (Deamidat) IgA <1.0 Assessment & Plan Assessment & Plan (1) Ulcerative colitis: Code(s): K51.90 - Ulcerative colitis, unspecified, without complications Category: Medical (2) Tubular adenoma of colon: Comment: Last scope 03/2023-repeat 2 years; 02/2022 repeat in 2 years due to ulcerative colitis Code(s): D12.6 - Benign neoplasm of colon, unspecified Category: Medical (3) GERD (gastroesophageal reflux disease): Code(s): K21.9 - Gastro-esophageal reflux disease without esophagitis Category: Medical (4) Gas bloat syndrome: Code(s): K92.89 - Other specified diseases of the digestive system Category: Medical (5) Current chronic use of systemic steroids: Code(s): Z79.52 - supervisor intermediates (current) use of systemic steroids Category: Medical Plan Som started to do better when he got off of the Rinvoq and back onto his Lialda. While he was on the Rinvoq he developed an infection in his toe and a rather severe cold (and he never gets colds). However shortly after that he developed more cramping and his stomach became more irritable. He then sought Dr. Arauz son and at that time he had broken out again in that rash across his face and upper body and was feeling extremely fatigued. Dr. Arauz son ran a wide battery of tests and prescribed him Rinvoq along with mesalamine suppositories. The mesalamine suppositories only made his symptoms much worse and since it is similar to his Lialda actually the same medication, he stopped it. When I got back I put him on prednisone and this seems to have made him much much better very quickly and cleared up his rash. At this point, since he has had poor experiences with other immuno modulating drugs for IBD he would like to try to find an acceptable chronic prednisone dose. He also did not do well with budesonide although he did better on the 3 mg 3 times tablets that he did on the 12 mg. He is currently on 40 mg of prednisone. We had a long discussion about the [facility] side effects and health consequences of utilizing prednisone. This included cataracts, bone thinning and decreased immunity as well as skin thinning. He is also read quite a bit about this and given his lack of response to other interventions he feels like he is willing to accept the side effects and go forward with the therapy. I would prefer for him to continue to try more targeted immunotherapy approaches but he really has had bad experience in his unwilling to go forward with this. We discussed doing a very slow taper 10 mg a month and I will give him the 10 mg tablets to help facilitate this. He also will stay on the Lialda as this I think will help us spare the steroid and get to a lower maintenance dose in order to preserve his general health and minimize long-term steroid side effects. We are going to get a bone density test as a baseline given his high steroid use over his lifetime. Review all of the labs and except for very mild allergy to Chely nuts and walnuts there really was nothing of significance. He has a colonoscopy coming up in March along with an endoscopy. Return office visit in 3 months to see how he is doing with his taper and at that time we will go over the procedure results. If he needs me sooner because his symptoms we exacerbate of course he can call and make an appointment sooner. Orders: Orders XR DEXA axial skeleton Today K51.90 - Ulcerative colitis, unspecified, without complications, Z79.52 - supervisor intermediates (current) use of systemic steroids Medications: New prednisone 40 mg (4 x 10 mg) PO DAILY 120 tabs 0RF K51.90 - Ulcerative colitis, unspecified, without complications Discontinued mesalamine with cleansing wipe 4 gram/60 mL (Rowasa rectal suspension enema) Discontinued Reason: Patient Completed Course 4 grams (60 mL) AL BEDTIME 4 ea 2RF prednisone Discontinued Reason: Doctor's Order 3 tabs for 3 days, 2 for 2 days than continue on 2 tabs day orally daily; 63 tabs 3RF K51.90 - Ulcerative colitis, unspecified, without complications Coding Level of Care Code Est Pt Level 4 (97983) Diagnoses Ulcerative colitis K51.90 Tubular adenoma of colon D12.6 GERD (gastroesophageal reflux disease) K21.9 Gas bloat syndrome K92.89 Current chronic use of systemic steroids Z79.52 Time Spent (min) 38
[2025-03-09 13:55] VITALS: BP 151/75; PULSE 75; O2SAT 97; BMI 24.7
== END 2025-03-09 15:09 | disposition home or self-care (01) ==
LOC: HO.HGI 13:51
PROVIDERS: PCP Nurse Practitioner Family; Visit Provider Nurse Practitioner
DX: K51.90 Ulcerative colitis, unspecified, without complications (principal); D12.6 Benign neoplasm of colon, unspecified; K21.9 Gastro-esophageal reflux disease without esophagitis; K92.89 Other specified diseases of the digestive system; Z79.52 Long term (current) use of systemic steroids
CPT/HCPCS: 99214

== ENCOUNTER → 2025-03-09 13:51 | Outpatient (BNVA) | payer MEDICARE, MEDICAID, SELFPAY | PROVIDERS: PCP Nurse Practitioner Family; Visit Provider Nurse Practitioner | DX: K51.90 Ulcerative colitis, unspecified, without complications (principal); K21.9 Gastro-esophageal reflux disease without esophagitis; D12.6 Benign neoplasm of colon, unspecified; K92.89 Other specified diseases of the digestive system; Z79.52 Long term (current) use of systemic steroids | CPT/HCPCS: 99212 ==

== ENCOUNTER 2025-04-05 07:26 | Day surgery (SDC) | payer MEDICARE, MEDICAID, SELFPAY ==
[2025-04-01 14:15] VITALS: BMI 24.7
[2025-04-05 08:01] VITALS: BMI 25.3
--- NOTE | 2025-04-05 08:18 | P.CONAN_ITS ---
Documented by User: Lana Schwartz NP 04/04/25 13:00 HPI - Anesthesia Eval Consult details Narrative: 64yo M for Upper Endoscopy and Colonoscopy Naltrexone for neurodermatitis PMFSH Active Problems Active Problems: All Active Problems Current chronic use of systemic steroids (Acute) Rash (Acute) Hemorrhoids (Acute) Gas bloat syndrome (Acute) Abdominal cramping (Acute) GERD (gastroesophageal reflux disease) (Acute) Therapeutic opioid induced constipation (Acute) Tubular adenoma of colon (Acute) Ulcerative colitis (Acute) Past Medical History Medical History Weight loss, abnormal C. difficile colitis Acute diarrhea Rectal bleeding HTN (hypertension) COVID-19 vaccine series completed Asthma Seasonal allergies Neurodermatitis Dcnqit-bp-eipr transgender person Ulcerative colitis Anxiety Family History Family history of problems with anesthesia: No Surgical History Surgical History (Updated 04/05/25 @ 07:53 by Felicita Reynolds RN) Hx of foot surgery History of cataract surgery Hx of nasal septoplasty History of esophagogastroduodenoscopy (EGD) Hx of colonoscopy 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 H/O carpal tunnel repair History of Problems with Anesthesia: No Social History Social History Household Members: None Are you a primary home health aide caregiver to a significant other at home: No Do you presently have visiting nurse or other home services: No Alcohol intake: current Alcohol intake frequency: holidays/special occasions on ly Patient Tobacco Use Status: Never used Tobacco Substance Use Type: Marijuana Have you been hit, kicked, punched, or otherwise hurt by someone within the past year? If so, by whom?: No Are you DNR?: No Advance Directives: No Advance Directives Information Provided: Yes Current occupational status: employed Current occupation: [employer] Meds Allergies Allergy/AdvReac Type Severity Reaction Status Date / Time clindamycin [CLINDAMYCIN] Allergy Intermediate HIVES Verified 04/05/25 07:53 egg Allergy Intermediate Hives Verified 04/05/25 07:53 Penicillins [PENICILLINS] Allergy Intermediate RASH,HIVES Verified 04/05/25 07:53 Sulfa (Sulfonamide Allergy Intermediate RASH,HIVES Verified 04/05/25 07:53 Antibiotics) [SULFA(SULFONAMIDE ANTIBIOTICS)] Home Medications ?Medication ?Instructions ?Recorded ?Confirmed ?Last Taken ?Type cetirizine 10 mg tablet (Zyrtec) 10 mg PO DAILY PRN Allergic 01/29/21 09/08/24 Unknown History Symptoms albuterol sulfate 90 mcg/actuation 1 inh inhalation Q4H PRN Wheezing 06/26/21 09/08/24 04/03/23 08:44 History aerosol inhaler (ProAir HFA) Naltrexone 6 mg PO BEDTIME 09/24/22 09/08/24 04/04/25 History needle (disp) 18 G 18 gauge x 1 #100 ea 09/24/22 09/08/24 Unknown History (BD Regular Bevel [place]) syringe (disposable) 1 mL (BD #1,000 ea 09/24/22 09/08/24 Unknown History Tuberculin Slip-Tip) cholecalciferol (vitamin D3) 50 50 mcg PO DAILY 02/27/23 09/08/24 Unknown History mcg (2,000 unit) capsule clonazepam 1 mg tablet 1 mg PO BID 09/08/24 09/08/24 04/05/25 06:15 History amlodipine 2.5 mg tablet 2.5 mg PO DAILY 11/23/24 04/04/25 History methylcellulose (laxative) 1 tbsp PO DAILY 01/24/25 04/04/25 History (Citrucel Sugar Free oral powder) metoprolol succinate 50 mg 50 mg PO DAILY 04/05/25 04/05/25 04/05/25 06:15 History tablet,extended release 24 hr prednisone 20 mg tablet mg PO 04/05/25 04/04/25 History testosterone cypionate 200 mg/mL 50 mg subcut QWEEK 04/05/25 04/05/25 04/04/25 History intramuscular oil trazodone 50 mg tablet 50 mg PO BEDTIME 04/05/25 04/05/25 04/04/25 History Exam Height,Weight and Vital Signs: Height 5 ft 1 in Weight 59.421 kg Assessment and Plan Assessment Anesthesia Assessment: Chart Reviewed Final Anesthetic Review Family History of Problems with Anesthesia: No History of Problems with Anesthesia: No Documented by User: Helga Dumont, DO 04/05/25 08:21 [facility] Past Medical History Medical History Weight loss, abnormal C. difficile colitis Acute diarrhea Rectal bleeding HTN (hypertension) COVID-19 vaccine series completed Asthma Seasonal allergies Neurodermatitis [id number]-[id number] transgender person Ulcerative colitis Anxiety Family History Family history of problems with anesthesia: No Surgical History Surgical History (Updated 04/05/25 @ 07:53 by Felicita Reynolds, RN) Hx of foot surgery History of cataract surgery Hx of nasal septoplasty History of esophagogastroduodenoscopy (EGD) Hx of colonoscopy 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 H/O carpal tunnel repair History of Problems with Anesthesia: No Social History Social History Household Members: None Are you a primary home health aide caregiver to a significant other at home: No Do you presently have visiting nurse or other home services: No Alcohol intake: current Alcohol intake frequency: holidays/special occasions only Patient Tobacco Use Status: Never used Tobacco Substance Use Type: Marijuana Have you been hit, kicked, punched, or otherwise hurt by someone within the past year? If so, by whom?: No Are you DNR?: No Advance Directives: No Advance Directives Information Provided: Yes Current occupational status: employed Current occupation: [employer] Meds Allergies Allergy/AdvReac Type Severity Reaction Status Date / Time clindamycin [CLINDAMYCIN] Allergy Intermediate HIVES Verified 04/05/25 07:53 egg Allergy Intermediate Hives Verified 04/05/25 07:53 Penicillins [PENICILLINS] Allergy Intermediate RASH,HIVES Verified 04/05/25 07:53 Sulfa (Sulfonamide Allergy Intermediate RASH,HIVES Verified 04/05/25 07:53 Antibiotics) [SULFA(SULFONAMIDE ANTIBIOTICS)] Home Medications ?Medication ?Instructions ?Recorded ?Confirmed ?Last Taken ?Type cetirizine 10 mg tablet (Zyrtec) 10 mg PO DAILY PRN Allergic 01/29/21 09/08/24 U nknown History Symptoms albuterol sulfate 90 mcg/actuation 1 inh inhalation Q4H PRN Wheezing 06/26/21 09/08/24 04/03/23 08:44 History aerosol inhaler (ProAir HFA) Naltrexone 6 mg PO BEDTIME 09/24/22 09/08/24 04/04/25 History needle (disp) 18 G 18 gauge x 1 #100 ea 09/24/22 09/08/24 Unknown History (BD Regular Bevel [place]) syringe (disposable) 1 mL (BD #1,000 ea 09/24/22 09/08/24 Unknown History Tuberculin Slip-Tip) cholecalciferol (vitamin D3) 50 50 mcg PO DAILY 02/27/23 09/08/24 Unknown History mcg (2,000 unit) capsule clonazepam 1 mg tablet 1 mg PO BID 09/08/24 09/08/24 04/05/25 06:15 History amlodipine 2.5 mg tablet 2.5 mg PO DAILY 11/23/24 04/04/25 History methylcellulose (laxative) 1 tbsp PO DAILY 01/24/25 04/04/25 History (Citrucel Sugar Free oral powder) metoprolol succinate 50 mg 50 mg PO DAILY 04/05/25 04/05/25 04/05/25 06:15 History tablet,extended release 24 hr prednisone 20 mg tablet mg PO 04/05/25 04/04/25 History testosterone cypionate 200 mg/mL 50 mg subcut QWEEK 04/05/25 04/05/25 04/04/25 History intramuscular oil trazodone 50 mg tablet 50 mg PO BEDTIME 04/05/25 04/05/25 04/04/25 History Exam Exam Date and Time: 04/05/2518 Airway Mallampati Class: II TM Dist: >3cm Neck ROM: Full Loose/Missing/Broken Teeth: Yes (multiple broken teeth) Heart: S1S2 Lungs: CTAB Assessment and Plan Assessment Anesthesia Assessment: Anesthesia Plan Discussed and Chart Reviewed Final Anesthetic Review Family History of Problems with Anesthesia: No History of Problems with Anesthesia: No NPO: Yes ASA Class: II Final Preanesthetic Review: No Changes in Pt Med Stat, Meds/Allgs Chart Revi ewed, Consent Obtained/Reviewed and Anes Risks/Benef Reviewed Patient Risk: Low Procedure Risk: Low Anesthetic Plan Anesthetic Plan: MAC: and Agree w/ Assess. and Plan Disposition: Standard PACU
[2025-04-05 08:20] VITALS: PULSE 66; RESP 17; TEMP 36.8; O2SAT 97
[2025-04-05] MEDS: Lactated Ringers 1,000 ML 100 ML IVCONT (08:20)
--- NOTE | 2025-04-05 08:34 | P.HPSUR_ITS ---
Pre-Procedural Eval Section A - 24 Hr Update-Section A only Date of Service: 04/05/25 Section B - Complete if H&P > 30 days Chief Complaint: Ulcerative colitis, unspecified, without complicat Relevant Family History (Specify if Yes): No Relevant Social History: None Present Medications: see Short Stay Collaborative assessment Medical History: Significant History (Acute diarrhea Weight loss, abnormal Re ctal bleeding C. difficile colitis HTN (hypertension) COVID-19 vaccine series completed Asthma Seasonal allergies Neurodermatitis Mlfjdd-rs-diss transgender person Ulcerative colitis Anxiety) History of Previous Operations: Relevant previous surgery/procedure and date(s) ( History of cataract surgery Hx of nasal septoplasty History of esophagogastroduodenoscopy (EGD) Hx of colonoscopy 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 H/O carpal tunnel repair) Allergies: Allergies Allergy/AdvReac Type Severity Reaction Status Date / Time clindamycin [CLINDAMYCIN] Allergy Intermediate HIVES Verified 04/05/25 07:53 egg Allergy Intermediate Hives Verified 04/05/25 07:53 Penicillins [PENICILLINS] Allergy Intermediate RASH,HIVES Verified 04/05/25 07:53 Sulfa (Sulfonamide Allergy Intermediate RASH,HIVES Verified 04/05/25 07:53 Antibiotics) [SULFA(SULFONAMIDE ANTIBIOTICS)] Review of Systems Sugical H&P ROS: Negative: Constitution, Cardiovascular, Respiratory, Neurological, Psychiatric, Hem-Onc, Allergic/Immunologic, Gastrointestinal, Genitourinary, Musculoskeletal, Integumentary, Endocrine and Eyes/Ears/Nose/Throat Exam Surgical H&P Exam: Normal: HEENT, Normal: Heart, Normal: Lungs, Normal: Extremities, Normal: Abdomen, Normal: Skin and Normal: Neurological Plan Diagnosis/Plan: Unchanged I have reviewed the history and physical and performed a pertinent physical examination on my patient. No changes have occurred unless specified. Time Spent With Patient Time: Total time managing care of this patient today ____ minutes.
--- NOTE | 2025-04-05 09:10 | HO.OPN-COLON ---
Colonoscopy Operative Note Operative Note Date of Service: 04/05/25 Narrative: Operative Information Procedure Description: EGD, Colonoscopy Indication: GERD, UC Anesthesia: MAC FLEXIBLE TRANSORAL UPPER GASTROINTESTINAL ENDOSCOPY AND COLONOSCOPY PROCEDURE NOTE UPPER ENDOSCOPY Consent: Indications for the procedure and potential complications of bleeding, perforation, reaction to medications and missed diagnosis were discussed with the patient and informed consent was obtained. Instrument: Olympus GIF H 190 J mid size upper endoscope Monitoring: Vital signs and clinical assessment, continuous EKG monitoring, Pulse oximetry, Carbon Dioxide monitoring and blood pressure monitoring were done throughout the procedure. Procedure: The patient was placed in the left lateral decubitis position and pre-procedure medications were administered and a bite block was placed. The endoscope was inserted into the mouth and advanced under direct vision to the third part of duodenum. A careful inspection was made as the upper endoscope was withdrawn including a retroflexed examination of the proximal stomach; Findings and interventions are described below. Findings: Larynx:normal Esophagus: GE junction at 37 cm, diaphragm hiatus at 40 cm, consistent with 3 cm sliding hiatal hernia, schatzki ring noted as well and also one tongue of short segement barretts, bx taken as well as from distal esophagus Stomach: atrophic appearing mucosa. Biopsies were obtained. Grade 2 flap valve on retroflexed examination of the cardia. Duodenum: Normal bulb and descending duodenum, bx taken Intervention: Biopsies as noted above, COLONOSCOPY Instrument: Olympus variable stiffness pediatric scope 190L Colonoscopy Monitoring: Vital signs and clinical assessment, continuous EKG monitoring, Pulse oximetry, Carbon Dioxide monitoring and blood pressure monitoring were done throughout the procedure. Colon withdrawal time was 10 minutes. Procedure: The patient was placed in the left lateral decubitis position and pre-procedure medications were administered. After a digital rectal examination of the ano-rectum, the video colonoscope was inserted into the rectum and advanced through the colon to the cecum/TI. The colonoscope was slowly withdrawn in a retrograde panoramic fashion and the colon mucosa was carefully examined including a retroflexed view of the rectum. Findings and interventions are described below. Procedure Difficulty: easy Findings: Terminal Ileum-normal, bx taken Bx taken from right, transverse, left and rectum in separate jars Cecum:normal Ascending Colon: normal Transverse Colon -normal Descending Colon:normal Sigmoid Colon: normal Rectum: Retroflexion with small internal hemorrhoids, grade I Anorectum - normal Colon preparation: Challis Bowel Preparation Scale Right colon; 2 Transverse colon: 2 Left colon; 3 (0 = Unprepared colon segment with mucosa not seen due to solid stool that cannot be cleared. 1 = Portion of mucosa of the colon segment seen, but other areas of the colon segment not well seen due to staining, residual stool and/or opaque liquid. 2 = Minor amount of residual staining, small fragments of stool and/or opaque liquid, but mucosa of colon segment seen well. 3 = Entire mucosa of colon segment seen well with no residual staining, small fragments of stool or opaque liquid) Impression and Post Procedure Diagnosis: Endoscopy Findings: gastritis possible barretts hiatal hernia schatzki ring Colonoscopy Findings: internal hemorrhoids colitis appears in remission Plan: Await Pathology results Repeat Colonoscopy in 1-2 yrs due to IBD history or earlier if clinically indicated High fiber diet leaflet avoid straining at stool, epsom salts and sitz bath, anusol supps or cream cont with PPI and GERd precautions Above findings were reviewed with the patient and relevant handouts were provided if indicated.
[2025-04-05 09:13] VITALS: BP 120/70; PULSE 62; RESP 20; TEMP 36.6; O2SAT 98
[2025-04-05 09:28] VITALS: BP 135/75; PULSE 50; RESP 16; TEMP 36.6; O2SAT 97
== END 2025-04-05 10:15 | disposition home or self-care (01) ==
PROVIDERS: PCP Nurse Practitioner Family; Visit Provider Internal Medicine Gastroenterology
PROC: (CPT 45380; principal; 2025-04-05 09:10)
DX: K64.0 First degree hemorrhoids (principal); Z86.0101 Personal history of adenomatous and serrated colon polyps; K29.60 Other gastritis without bleeding; K22.2 Esophageal obstruction; K44.9 Diaphragmatic hernia without obstruction or gangrene; K21.9 Gastro-esophageal reflux disease without esophagitis; K92.89 Other specified diseases of the digestive system; I10 Essential (primary) hypertension; J45.909 Unspecified asthma, uncomplicated; F64.0 Transsexualism; Z79.52 Long term (current) use of systemic steroids
CPT/HCPCS: 45380; 43239; 88305; 88313; 88342; J2003; J2704

== ENCOUNTER → 2025-04-05 07:26 | Outpatient (BNV) | payer MEDICARE, MEDICAID, SELFPAY | PROVIDERS: PCP Nurse Practitioner Family; Visit Provider Internal Medicine Gastroenterology | DX: K29.70 Gastritis, unspecified, without bleeding (principal); K44.9 Diaphragmatic hernia without obstruction or gangrene; K22.2 Esophageal obstruction; Z87.19 Personal history of other diseases of the digestive system; K64.8 Other hemorrhoids | CPT/HCPCS: 43239; 45380 ==

== ENCOUNTER → 2025-04-12 11:30 | Outpatient (BNV) | payer MEDICARE, MEDICAID, SELFPAY | PROVIDERS: PCP Nurse Practitioner Family; Visit Provider Radiology Diagnostic Radiology | DX: K51.90 Ulcerative colitis, unspecified, without complications (principal) | CPT/HCPCS: 77080 ==

== ENCOUNTER 2025-04-12 11:34 | Outpatient (REF) | payer MEDICARE, MEDICAID, SELFPAY ==
--- NOTE | ~2025-04-12 | MM_ITS ---
EXAMINATION: DXA BONE DENSITY AXIAL HISTORY: K51.90 - Ulcerative colitis, unspecified, without complications TECHNIQUE: Snapjoy Dual energy absorptiometry (DEXA) of the lumbar spine, total left hip, and femoral neck was performed. COMPARISON: There are no prior studies for comparison. FINDINGS: The bone mineral density of the lumbar spine is 1.319, corresponding to a T-score of 0.8, and a Z-score of 1.8. This is indicative of normal bone mineral density. The bone mineral density of the left total hip is 1.023, corresponding to a T-score of -0.5, and a Z-score of 0.3. This is indicative of normal bone mineral density. The bone mineral density of the left femoral neck is 0.961, corresponding to a T-score of -0.8, and a Z-score of 0.6. This is indicative of normal bone mineral density. FRACTURE RISK: The FRAX index suggests a risk of major osteoporotic fracture of 7.8%, and of hip fracture 0.9%. MM/XR DEXA axial skeleton IMPRESSION: Based on bone mineral density, and according to World Health Organization (WHO) criteria, the diagnosis is consistent with normal bone mineral density. All bone density values are in grams per centimeter squared (g/cm2). Statistically, 68% of repeat scans fall within 1 SD (+/- 0.010 g/cm2 for AP spine L1-L4) and 1 SD (+/- 0.012 g/cm2 for femur total) FRAX is a trademark of the [employer], a World Health Organization (WHO) Collaborating Center. Electronically signed by: Kishore Moran MD 04/13/2025 09:06 AM EDT
== END 2025-04-12 11:35 | disposition home or self-care (01) ==
LOC: HO.MAMMO 11:34
PROVIDERS: PCP Nurse Practitioner Family; Visit Provider Nurse Practitioner
DX: K51.90 Ulcerative colitis, unspecified, without complications (principal); Z79.52 Long term (current) use of systemic steroids
CPT/HCPCS: 77080

== ENCOUNTER 2025-06-07 11:35 | Outpatient (AMB) | payer MEDICARE, MEDICAID, SELFPAY ==
[2025-06-07 11:37] VITALS: BP 123/75; PULSE 66; BMI 27.1
--- NOTE | 2025-06-07 11:37 | MHC.OFFVIS ---
Vital Signs 06/07/25 11:37 Height 5 ft 1 in Weight 143 lb 4.807 oz BMI 27.1 BP 123/75 Blood Pressure Location Lt brachial Position Sitting Pulse 66 Intake Visit Reasons: 3 mo f/u Taper pred, review colo Intake Note: [place] returns to in office follow up of ulcerative colitis. CC: Patient reports that he has been tapering down the Prednisone and is now taking 12.5 mg. He reports that he's been feeling up and down . He reports that he had an episode at work last where he got dizzy and required assistance. He thinks he probably got dehydrated due to temperature issues at the [employer] building where he works at. He states that his stomach issues are mostly in the morning and the rest of the day he is alright. Support Coordinator Required: No Accompanied by: Self / Same As Patient Allergies clindamycin (CLINDAMYCIN) Allergy (Intermediate, Verified 06/07/25 11:53) HIVES egg Allergy (Intermediate, Verified 06/07/25 11:53) Hives Penicillins (PENICILLINS) Allergy (Intermediate, Verified 06/07/25 11:53) RASH,HIVES Sulfa (Sulfonamide Antibiotics) (SULFA(SULFONAMIDE ANTIBIOTICS)) Allergy (Intermediate, Verified 06/07/25 11:53) RASH,HIVES HPI HPI 3 mo f/u Taper pred, review colo: Details: Assessment & Plan (1) Ulcerative colitis: Code(s): K51.90 - Ulcerative colitis, unspecified, without complications Category: Medical (2) Tubular adenoma of colon: Comment: Last scope 03/2023-repeat 2 years; 02/2022 repeat in 2 years due to ulcerative colitis Code(s): D12.6 - Benign neoplasm of colon, unspecified Category: Medical (3) GERD (gastroesophageal reflux disease): Code(s): K21.9 - Gastro-esophageal reflux disease without esophagitis Category: Medical (4) Gas bloat syndrome: Code(s): K92.89 - Other specified diseases of the digestive system Category: Medical (5) Current chronic use of systemic steroids: Code(s): Z79.52 - penitentiary (current) use of systemic steroids Category: Medical Plan [place] started to do better when he got off of the Rinvoq and back onto his Lialda. While he was on the Rinvoq he developed an infection in his toe and a rather severe cold (and he never gets colds). However shortly after that he developed more cramping and his stomach became more irritable. He then sought Dr. Arauz son and at that time he had broken out again in that rash across his face and upper body and was feeling extremely fatigued. Dr. Arauz son ran a wide battery of tests and prescribed him Rinvoq along with mesalamine suppositories. The mesalamine suppositories only made his symptoms much worse and since it is similar to his Lialda actually the same medication, he stopped it. When I got back I put him on prednisone and this seems to have made him much much better very quickly and cleared up his rash. At this point, since he has had poor experiences with other immuno modulating drugs for IBD he would like to try to find an acceptable chronic prednisone dose. He also did not do well with budesonide although he did better on the 3 mg 3 times tablets that he did on the 12 mg. He is currently on 40 mg of prednisone. 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 This included cataracts, bone thinning and decreased immunity as well as skin thinning. He is also read quite a bit about this and given his lack of response to other interventions he feels like he is willing to accept the side effects and go forward with the therapy. I would prefer for him to continue to try more targeted immunotherapy approaches but he really has had bad experience in his unwilling to go forward with this. We discussed doing a very slow taper 10 mg a month and I will give him the 10 mg tablets to help facilitate this. He also will stay on the Lialda as this I think will help us spare the steroid and get to a lower maintenance dose in order to preserve his general health and minimize long-term steroid side effects. We are going to get a bone density test as a baseline given his high steroid use over his lifetime. Review all of the labs and except for very mild allergy to Chely nuts and walnuts there really was nothing of significance. He has a colonoscopy coming up in March along with an endoscopy. Return office visit in 3 months to see how he is doing with his taper and at that time we will go over the procedure results. If he needs me sooner because his symptoms we exacerbate of course he can call and make an appointment sooner. Orders: Orders XR DEXA axial skeleton Today K51.90 - Ulcerative colitis, unspecified, without complications, Z79.52 - penitentiary (current) use of systemic steroids Medications: New prednisone 40 mg (4 x 10 mg) PO DAILY 120 tabs 0RF K51.90 - Ulcerative colitis, unspecified, without complications Discontinued mesalamine with cleansing wipe 4 gram/60 mL ([place]asa rectal suspension enema) Discontinued Reason: Patient Completed Course 4 grams (60 mL) AR BEDTIME 4 ea 2RF prednisone Discontinued Reason: Doctor's Order 3 tabs for 3 days, 2 for 2 days than continue on 2 tabs day orally daily; 63 tabs 3RF K51.90 - Ulcerative colitis, unspecified, without complications i EGD/COLONOSCOPY Findings: Larynx:normal Esophagus: GE junction at 37 cm, diaphragm hiatus at 40 cm, consistent with 3 cm sliding hiatal hernia, schatzki ring noted as well and also one tongue of short segement barretts, bx taken as well as from distal esophagus Stomach: atrophic appearing mucosa. Biopsies were obtained. Grade 2 flap valve on retroflexed examination of the cardia. Duodenum: Normal bulb and descending duodenum, bx taken Findings: Terminal Ileum-normal, bx taken Bx taken from right, transverse, left and rectum in separate jars Cecum:normal Ascending Colon: normal Transverse Colon -normal Descending Colon:normal Sigmoid Colon: normal Rectum: Retroflexion with small internal hemorrhoids, grade I Anorectum - normal Impression and Post Procedure Diagnosis: Endoscopy Findings: gastritis possible barretts hiatal hernia schatzki ring Colonoscopy Findings: internal hemorrhoids colitis appears in remission Plan: Await Pathology results Repeat Colonoscopy in 1-2 yrs due to IBD history or earlier if clinically indicated High fiber diet leaflet avoid straining at stool, epsom salts and sitz bath, anusol supps or cream cont with PPI and GERd precautions BIOPSY Received: 04/05/25 Diagnosis A. Duodenum, biopsy: Duodenal mucosa with preserved villi and no specific change. B. Stomach, biopsy: Gastric antral and body mucosa with focal minimal chronic inactive inflammation; negative for H. pylori, intestinal metaplasia and dysplasia. C. Esophagogastric junction, biopsy: Squamocolumnar mucosa with minimal chronic inactive inflammation; negative for intestinal metaplasia and dysplasia. D. Esophagus, distal, biopsy: Squamous mucosa with no specific change; no columnar mucosa present. E. Terminal ileum, biopsy: Ileal mucosa with no specific change; no ileitis, granulomas or dysplasia. F. Colon, right, biopsy: Colonic mucosa with lymphoid aggregates and minor crypt distortion, otherwise no specific change; no colitis, granulomas or dysplasia. G. Colon, transverse, biopsy: Colonic mucosa with minor crypt distortion, otherwise no specific change; no colitis, granulomas or dysplasia. H. Colon, left, biopsy: Colonic mucosa with minor crypt distortion, otherwise no specific change; no colitis, granulomas or dysplasia. I. Colon, rectum, biopsy: Colonic mucosa with lymphoid aggregates and minor crypt distortion, otherwise no specific change; no colitis/proctitis, granulomas or dysplasia. DEXA SCAN 03/2025 FINDINGS: The bone mineral density of the lumbar spine is 1.319, corresponding to a T-score of 0.8, and a Z-score of 1.8. This is indicative of normal bone mineral density. The bone mineral density of the left total hip is 1.023, corresponding to a T-score of -0.5, and a Z-score of 0.3. This is indicative of normal bone mineral density. The bone mineral density of the left femoral neck is 0.961, corresponding to a T-score of -0.8, and a Z-score of 0.6. This is indicative of normal bone mineral density. FRACTURE RISK: The FRAX index suggests a risk of major osteoporotic fracture of 7.8%, and of hip fracture 0.9%. MM/XR DEXA axial skeleton IMPRESSION: Based on bone mineral density, and according to World Health Organization (WHO) criteria, the diagnosis is consistent with normal bone mineral density. TODAYS VISIT He is tapering the prednisone. He is currently on 12.5 mg. He has gained quite a bit of weight, has moom face, and frequent sweats - all a/e of prednisone. I want him to slow his tapering to 1/2 mg q2 weeks as he also has significant adrenal fatigue. Reinforce that chronic prednisone is not the best of plans. He does not want to take Humira and did not do well on Rinvoq. I may consider Imuran going forward depending on how he does with prednisone taper and Lialda. He was on low dose narcan via [facility]. This, he was told, was to treat his chronic inflammation. He also has this recurring rash with itching - better on prednisone. His grandfather had Crohns, and I am begining to think, with all of the more systemic effects I think he may have Crohns rather than the long thought UC dx. He is not willing yet to take imuran. WE WOULD NEED TO DO A FEW PURINE GENETICS 1ST ANYWAY. ROV 6-8 weeks. [facility] Medical History Weight loss, abnormal C. 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 H/O carpal tunnel repair Social History Household Members: None Are you a primary livestock caretaker to a significant other at home: No Do you presently have visiting nurse or other home services: No Alcohol intake: current Alcohol intake frequency: holidays/special occasions only Patient Tobacco Use Status: Never used Tobacco Substance Use Type: Marijuana Current occupational status: employed Current occupation: [employer] Review of Systems Const Reports excessive sweating, Reports fatigue, Denies fever(s), Denies night sweats, Denies poor appetite, Reports weakness, Reports weight gain and Denies weight loss Eyes Details: glasses Reports requires corrective lenses ENT Reports Normal hearing present, Denies dental pain, Denies dysphagia, Denies hearing loss, Denies mouth pain, Denies odynophagia, Denies throat swelling, Denies tongue swelling and Reports other (Dentition adequate) Card Reports no additional complaints Resp Reports no additional complaints GI Details: Denies abdominal pain, Denies melena, Denies bloating, Denies hematochezia, Denies constipation, Denies GI cramping, Denies dysphagia, Denies excessive flatus, Denies early satiety, Denies heartburn, Denies diarrhea, Reports loose stools, Denies nausea, Denies odynophagia, Denies vomiting and Denies hematemesis Skin/Breast Denies pruritus, Denies lesions, Reports rash and Denies jaundice Neuro Reports Normal hearing present, Denies Abnormal speech present and Reports weakness Endo Reports excessive sweating, Reports fatigue and Reports heat intolerance Aller/Immun Denies throat swelling and Denies tongue swelling Physical Exam Vital Signs: Last Vital Signs Pulse 66 06/07/25 11:37 BP 123/75 06/07/25 11:37 BMI result Body Mass Index 27.1 Const General: cooperative, no acute distress, well developed, Cushingoid facies and well groomed Nutritional Appearance: average body habitus and well nourished Orientation/consciousness: oriented to person, oriented to place and oriented to time Limitations: No language barrier HEENT Head: Yes normocephalic and Yes atraumatic Eyes General: appearance normal, both eyes and all related structures Pupils: Equal, round and reactive pupils present Neck Neck: Yes normal visual inspection and Yes no lymphadenopathy Thyroid: Thyroid normal Resp Effort & Inspection: normal respiratory effort and able to speak in complete sentences Auscultation: clear to auscultation bilaterally Cardio Rate: regular rate Rhythm: regular rhythm Heart sounds: Normal, physiologic split S2 sound present Peripheral pulses: radial pulses present and posterior tibial pulses present GI Inspection: No distended, No Abdominal panniculus present and Yes obesity Palpation (GI): Soft to palpation, nontender, no guarding, not rigid and No hepatosplenomegaly present Percussion: Yes normal to percussion Auscultation: normal bowel sounds Rectal Exam - Male: Yes deferred Skin General skin exam: no rashes or lesions noted, turgor normal, skin not dry, no jaundice, No spider nevi and no striae Rashes: no rashes Nails: normal Neuro General: oriented to person, oriented to place and oriented to time Cranial nerves: Yes Equal, round and reactive pupils present and Yes Normal hearing present Speech: No Abnormal speech present Extrem General: Yes normal to inspection, No clubbing, No cyanosis and No edema Psych Appearance: grossly normal and well kempt Mental Status: mental status grossly normal Speech and movement: Normal speech and movement present Affect: normal affect Attitude: cooperative Thought process: Normal thought process present and not confabulating Thought content: Normal thought content present Insight: Good insight present (Psych) Judgement: Good judgement present (Psych) Results Reviewed Results Reviewed: EGD/COLONOSCOPY Findings: Larynx:normal Esophagus: GE junction at 37 cm, diaphragm hiatus at 40 cm, consistent with 3 cm sliding hiatal hernia, schatzki ring noted as well and also one tongue of short segement barretts, bx taken as well as from distal esophagus Stomach: atrophic appearing mucosa. Biopsies were obtained. Grade 2 flap valve on retroflexed examination of the cardia. Duodenum: Normal bulb and descending duodenum, bx taken Findings: Terminal Ileum-normal, bx taken Bx taken from right, transverse, left and rectum in separate jars Cecum:normal Ascending Colon: normal Transverse Colon -normal Descending Colon:normal Sigmoid Colon: normal Rectum: Retroflexion with small internal hemorrhoids, grade I Anorectum - normal Impression and Post Procedure Diagnosis: Endoscopy Findings: gastritis possible barretts hiatal hernia schatzki ring Colonoscopy Findings: internal hemorrhoids colitis appears in remission Plan: Await Pathology results Repeat Colonoscopy in 1-2 yrs due to IBD history or earlier if clinically indicated High fiber diet leaflet avoid straining at stool, epsom salts and sitz bath, anusol supps or cream cont with PPI and GERd precautions BIOPSY Received: 04/05/25 Diagnosis A. Duodenum, biopsy: Duodenal mucosa with preserved villi and no specific change. B. Stomach, biopsy: Gastric antral and body mucosa with focal minimal chronic inactive inflammation; negative for H. pylori, intestinal metaplasia and dysplasia. C. Esophagogastric junction, biopsy: Squamocolumnar mucosa with minimal chronic inactive inflammation; negative for intestinal metaplasia and dysplasia. D. Esophagus, distal, biopsy: Squamous mucosa with no specific change; no columnar mucosa present. E. Terminal ileum, biopsy: Ileal mucosa with no specific change; no ileitis, granulomas or dysplasia. F. Colon, right, biopsy: Colonic mucosa with lymphoid aggregates and minor crypt distortion, otherwise no specific change; no colitis, granulomas or dysplasia. G. Colon, transverse, biopsy: Colonic mucosa with minor crypt distortion, otherwise no specific change; no colitis, granulomas or dysplasia. H. Colon, left, biopsy: Colonic mucosa with minor crypt distortion, otherwise no specific change; no colitis, granulomas or dysplasia. I. Colon, rectum, biopsy: Colonic mucosa with lymphoid aggregates and minor crypt distortion, otherwise no specific change; no colitis/proctitis, granulomas or dysplasia. DEXA SCAN 03/2025 FINDINGS: The bone mineral density of the lumbar spine is 1.319, corresponding to a T-score of 0.8, and a Z-score of 1.8. This is indicative of normal bone mineral density. The bone mineral density of the left total hip is 1.023, corresponding to a T-score of -0.5, and a Z-score of 0.3. This is indicative of normal bone mineral density. The bone mineral density of the left femoral neck is 0.961, corresponding to a T-score of -0.8, and a Z-score of 0.6. This is indicative of normal bone mineral density. FRACTURE RISK: The FRAX index suggests a risk of major osteoporotic fracture of 7.8%, and of hip fracture 0.9%. MM/XR DEXA axial skeleton IMPRESSION: Based on bone mineral density, and according to World Health Organization (WHO) criteria, the diagnosis is consistent with normal bone mineral density. Assessment & Plan Assessment & Plan (1) Ulcerative colitis: Code(s): K51.90 - Ulcerative colitis, unspecified, without complications Category: Medical Plan He is tapering the prednisone. He is currently on 12.5 mg. He has gained quite a bit of weight, has moom face, and frequent sweats - all a/e of prednisone. I want him to slow his tapering to 1/2 mg q2 weeks as he also has significant adrenal fatigue. Reinforce that chronic prednisone is not the best of plans. He does not want to take Humira and did not do well on Rinvoq. I may consider Imuran going forward depending on how he does with prednisone taper and Lialda. He was on low dose narcan via [facility]. This, he was told, was to treat his chronic inflammation. He also has this recurring rash with itching - better on prednisone. His grandfather had Crohns, and I am begining to think, with all of the more systemic effects I think he may have Crohns rather than the long thought UC dx. He is not willing yet to take imuran. WE WOULD NEED TO DO A FEW PURINE GENETICS 1ST ANYWAY. ROV 6-8 weeks. Medications: New prednisone 1 mg PO .5 x day 150 tabs 3RF K51.90 - Ulcerative colitis, unspecified, without complications prednisone 5 mg PO BID 60 tabs 6RF K51.90 - Ulcerative colitis, unspecified, without complications Refilled Lialda (mesalamine) 4.8 grams (4 x 1.2 gram) PO DAILY 360 tabs 1RF NS Coding Level of Care Code Est Pt Level 4 (65901) Diagnoses Ulcerative colitis K51.90 Time Spent (min) 35
--- OUTSIDE RECORDS SUMMARY | 2025-06-07 12:50 | XMS_ITS | Clinical Summary ---
Author Organization [facility] Address [address] [facility] [address] [place] [phone] Phone Care Team Providers Care Auto Body Repair Technician Name Role Phone Allison Arceah TO Primary Care Provide r Velma Mcmahon TRUCKER HAND Unavailable Unavailable Michelle Morales Unavailable Unavailable Allergies Active Allergy Reactions Criticality Noted Date Comments Clindamycin Hcl Rash Low 11/27/2017 Egg 08/14/2022 Penicillins Rash Low 11/27/2017 Sulfa (Sulfonamide Antibiotics) Rash Low 11/17 Medications cholecalciferol (VITAMIN D3) 1,000 unit tablet Take 2,000 Units by mouth daily. Active mesalamine (LIALDA) 1.2 gram EC tablet 1.2 g 4 (four) times a day. Pt reports taking 4.8 gm daily. Active pantoprazole (PROTONIX) 20 MG tablet Take 20 mg by mouth 2 (two) times a day. Active blood pressure monitor KitIndications:Ort hostatic hypotension,Postur al lightheadedness 1 each by Miscellaneous route 2 (two) times a day. 1 each 04/04/20 21 Active needle, disp, 25 gauge (BD REGULAR BEVEL NEEDLES) 25 gauge x 5/8 Ndle 1 each by Miscellaneous route every 7 days. 25 each 1 08/06/20 22 Active needle, disp, 18 G (BD REGULAR BEVEL NEEDLES) 18 gauge x 1 NdleIndications:Ge nder dysphoria in adult Weekly draw needle May substitute 1.5 needle if 1 needle not available. 12 each 3 11/03/20 Active needle, disp, 25 gauge 25 gauge x 1 1/2 NdleIndications:Ge nder dysphoria in adult Inject 1 each into the muscle every 7 days. For intramuscular injection 12 each 3 11/03/20 Active syringe, disposable, 1 mL Syrg 1 each by Miscellaneous route every 7 days. Use for injection of testosterone, with 25g needles 12 each 3 11/03/20 Active evolocumab (REPATHA SURECLICK) 140 mg/mL PnIj subcutaneous pen injector Inject 1 mL (140 mg total) under the skin every 14 (fourteen) days. 6 mL 3 07/02/20 24 Active amLODIPine (NORVASC) 2.5 MG tablet Take 1 tablet (2.5 mg total) by mouth daily. 90 tablet 3 07/05/20 24 Active clonazePAM (KLONOPIN) 1 MG tablet Take 1 tablet by mouth 2 (two) times a day. 09/20/20 24 Active traZODone (DESYREL) 50 MG tablet take 1 tablet by mouth everyday at bedtime 07/27/20 24 Active penciclovir (DENAVIR) 1 % creamIndications:H erpes labialis APPLY TOPICALLY 2 (TWO) TIMES A DAY. 90 DAY SUPPLY 60 g 3 10/22/20 24 Active predniSONE (DELTASONE) 20 MG tablet 25 mg. 10/19/20 24 Active testosterone cypionate (DEPO-TESTOTERONE) 200 mg/mL injectionIndicatio ns:Gender dysphoria in adult INJECT 0.25ML INTO THE SKIN ONCE WEEKLY 4 mL 5 12/07/19 25 Active cetirizine (ZYRTEC) 10 MG tabletIndications: Allergies TAKE 1 TABLET BY MOUTH EVERY DAY 90 tablet 3 01/27/20 25 Active metoprolol succinate (TOPROL-XL) 50 MG 24 hr tablet TAKE 1 TABLET (50 MG TOTAL) BY MOUTH DAILY. TAKE THIS IN ADDITION TO THE AMLODIPINE. 90 tablet 1 02/01/20 25 Active albuterol 90 mcg/actuation inhaler USE 2 INHALATIONS EVERY 6 HOURS NEEDED FOR WHEEZING OR SHORTNESS OF BREATH / DYSPNEA 25.5 g 2 04/27/20 25 Active SENNA 8.6 mg tablet take two tablets by mouth every night at bedtime 04/12/20 25 Active ondansetron (ZOFRAN-ODT) 4 MG disintegrating tablet Take 1 tablet (4 mg total) by mouth every 8 (eight) hours as needed for nausea. 28 tablet 2 05/30/20 25 Active naltrexone (REVIA) 50 mg tablet 6 mg. 6mg qd 025 Disconti nued(No longer taking) budesonide (ENTOCORT EC) 3 mg 24 hr capsule 2 mg. 08/19/20 23 025 Disconti nued(No longer taking) meclizine (ANTIVERT) 25 mg tablet Take 1 tablet (25 mg total) by mouth 3 (three) times a day as needed. 42 tablet 1 09/15/20 23 025 Disconti nued(No longer taking) ondansetron (ZOFRAN-ODT) 4 MG disintegrating tablet Take 1 tablet (4 mg total) by mouth every 8 (eight) hours as needed for nausea. 28 tablet 2 04/23/20 24 025 Disconti nued(Reo rder) evolocumab (REPATHA SURECLICK) 140 mg/mL PnIj subcutaneous pen injector Inject 1 mL (140 mg total) under the skin every 14 (fourteen) days. 6 mL 3 10/06/20 24 025 Disconti nued(No longer taking) DIFICID 200 mg Tab Take 200 mg by mouth 2 (two) times a day. 10/07/20 24 025 Disconti nued(No longer taking) Active Problems Patient Care Coordination No te Formatting of this note migh t be different from the original. Houston Galindo presents in session today as prepared and friendly. The goal of meeting today was to establish contact and discuss Houston's needs regarding his certificate change status, some issues he's had with cabin man re certificate, and some questions he had regarding insurance, medicare, and [employer]. The plan going forward is for thx to contact insurances and law offices after obtaining necessary release(s). Interventions: Case management, relational therapy, strengths-based processing, psychodynamic interventions, validation, reflection, trauma informed care, gender affirming care, mindfulness skills, communication skills, boundary setting, psychoeducation. Suicidally/homicidality reported today: no Next Session: TBD Session length: 1hr Problem Noted Date Diagnosed Date Asthma 06/30/2024 Overview (06/30/2024): has inhaler-rarely uses Personal history of COVID-19 06/09/2024 Overview (06/09/2024): May 2024 Age-related incipient cataract of left eye 01/20 C. difficile colitis 09/16/2023 Overview (09/16/2023): Diagnosed 08/2023 via Plate Painter Apprentice at [facility]. Started on abx Carnes's cyst of knee, left 08/25/2023 Arthritis of right knee 07/30/2023 Screening for colon cancer 04/17/2023 Overview (07/21/2023): colonoscopy, repeat [id number] as per GI Recurrent herpes labialis 03/12/2023 Notalgia paresthetica 12/18/2022 Claustrophobia 12/18/2022 History of arthrodesis 08/22/2022 Left foot pain 12/18/2021 Benign essential hypertension 12/18/2021 Assessment & Plan (05/17/2025 2:25 PM EDT): Blood pressure is under good control with amlodipine and metoprolol. Patient is tolerating his medications well. He did state that his blood pressure can be in the 130s in the evening. We discussed possibly taking his blood pressure 1 to 2 hours after he takes his morning medications to get a better picture of how well his medication is controlling his blood pressure. He will keep a log before his next visit in 6 months. Plan: Continue amlodipine Continue metoprolol Follow-up in 6 months Mixed hyperlipidemia 03/16/2021 Assessment & Plan (05/17/2025 2:26 PM EDT): LDL has improved by approximately 50% from 314-154 with the introduction of Repatha. Patient is tolerating the medication well. Patient does get dairy products to increase his calorie count. Patient has difficulty keeping weight on so he looks for ways to increase his calories. Patient has a history of ulcerative colitis which reduces his ability to absorb nutrients. We discussed meeting with a jewelry sorter to help him find cholesterol lowering ways to increase his calorie count. He will work on his diet and follow-up in 6 months. Assessment & Plan (12/27/2021 8:53 AM EST): Pt declines statin Dec 2021 Hearing loss 04/28/2019 PTSD (post-traumatic stress disorder) 04/22/2018 Overview (04/22/2018): Sees Vale Martinez at [facility] Anxiety 04/22/2018 IBS (irritable colon syndrome) 04/22/2018 Overview (04/22/2018): initially diagnosed with UC on colonoscopy but has had multiple unremarkable colonoscopies since. Sees Dr. Emilie Nash, GI in [place] Transgender 04/22/2018 Overview (04/22/2018): S/p double mastectomy (2010, revision 2017), s/p BSO-Hyst (2017) Ulcerative colitis 10/23/2017 Right carpal tunnel syndrome Hallux rigidus of left foot Resolved Problems Problem Noted Date Diagnosed Date Resolved Date Elevated BP without diagnosis of hypertension 06/19/20 21 01/31/2022 Basal cell carcinoma (BCC) 04/28/2019 0 04/28/2019 Overview (04/28/2019): Hx of Mohs procedure to nose Encounters Date Type Department Care Team Description 05/17/2025 1:00 PM EDT Office Visit [facility] [address], [address] [place] [address] Nano Shah DNP Mixed hyperlipidemia (Primary Dx); Benign essential hypertension 04/30/2025 Orders Only [address] [address] Maranda March PA Allergy, initial encounter (Primary Dx); Asthma, unspecified asthma severity, unspecified whether complicated, unspecified whether persistent 04/27/[address] [address] Allison Arce, TO Medication Refill 03/17/2025 Telephone [facility] [address] [place] [address] Allison Arce, TO 03/08/2025 10:00 AM EDT [facility] [address] [place] [address] Michelle Morales Anxiety (Primary Dx) from Last 3 Months Immunizations Immunization Administration Dates Next Due COVID-19 (Pre-09/08) Pfizer Vaccine, mRNA, PF 02/14/2021,01/23/2021 Influenza Quadrivalent MDCK Preservative Free IM 08/26/2023,08/19/2022,09/10/2021 Influenza Recombinant Saray valent Preservative Free IM 07/19/2020 Influenza Split (Incl. Purif ied Surface Antigen) 09/23/2012 Influenza Trivalent w/ Preservative IM 4 Pneumococcal polysaccharide PPSV23 10/10/2014 Tdap 02/19/2013 Social History Tobacco Use Types Packs/Day Years Used Date Smoking Tobacco: Never Smokeless Tobacco: Never Tobacco Cessation:Counseling Given: Not Answered Alcohol Use Standard Drinks/Week Comments Not Currently 3 (1 standard drink = 0.6 oz pur e alcohol) Child or Family Care Answer Date Record ed Do you have problems with on e of the following making it difficult for you to work, study, or receive health care? No 08/13/2022 Education Answer Date Recorded Are you interested in more education? Not on charlie e 08/13/2024 Are you concerned about learning? Not on file 08/13/2024 No 08/13/2024 No 08/13/2024 Food Answer Date Recorded Within the past 6 months we worried whether our food would run out before we got money to buy more. Sometimes True 022 Within the past 6 months the food we bought just didn't last and we didn't have enough money to get more. Sometimes True 07/19 Residential Stability Answer Date Recor ded What is your housing situation today? I have kb sing 08/13/2022 How many times have you move d in the past 12 months? Zero (I did not move) 08/13/2022 Paying for Meds Answer Date Recorded Do you have trouble paying for medicines? Yes 08/13/2022 Paying Utility Bills Answer Date Record ed Do you have trouble paying your heating or elect ricity bill? Yes 08/13/2022 Transportation Answer Date Recorded Has the lack of transportati on kept you from medical appointments or from getting medications? Yes 08/13/2022 Unemployment Answer Date Recorded Are you currently unemployed or working on a part-time or temporary basis, and looking for work? No 08/13/2022 Digital Access Answer Date Recorded No 04/11/2023 No 04/11/2023 Reliable internet access at home? Not on file 04/11/2023 Device with a working camera? Not on file Intimate Partner Violence Answer Date R ecorded Are you denied basic needs s uch as food, clothing, or medical care? No 09/11/2023 In the past 12 months have y ou been in a relationship with a person who hurts, threatens, or tries to control you? No 09/11/2023 Are you denied basic needs s uch as food, clothing, or medical care? No 09/11/2023 In the past 12 months have y ou been in a relationship with a person who hurts, threatens, or tries to control you? No 09/11/2023 Comments No Sex and Gender Information Value Date Recorded Sex Assigned at Female 04/22/2018 12:08 PM EDT Legal Sex Male 12:14 PM EST Gender Identity Male 04/22/2018 12:08 PM EDT Sexual Orientation Straight 04/27/2020 8: 07 PM EDT Last Filed Vital Signs Vital Sign Reading Time Taken Comments Blood Pressure 120/70 05/17/2025 1:02 PM EDT Pulse 67 05/17/2025 1:02 PM EDT Temperature 37.3 C (99.2 F) 10/01/2024 4:11 PM EST Respiratory Rate 18 10/01/2024 4:11 PM EST Oxygen Saturation 97% 05/17/2025 1:02 PM EDT Inhaled Oxygen Concentration - - Weight 63.6 kg (140 lb 3.2 oz) 05/17/2025 1:02 P M EDT Height 160 cm (5' 2.99 ) 05/17/2025 1:02 PM EDT Body Mass Index 24.84 05/17/2025 1:02 PM EDT Plan of Treatment Upcoming Encounters Date Type Department Care Team (Late st Contact Info) Description 07/05/2025 11:00 AM EDT Tele[facility]icine [facility] [address] [place] [address] [phone] Allison Arce FNP [address] [place], [place] [phone] [email or web address] 11/30/2025 1:00 PM EST Office Visit [facility] [address], [address] [place], [place] [phone] Coleman Mcginnis MD [address] [place] [phone] [email or web address] Health Maintenance Due Date Last Done Comments HIV ONE-TIME SCREENING (18-65 YEARS) 1978 COLOGUARD 2005 FIT TEST 2005 FOBT 2005 SIGMOIDOSCOPY 2005 VIRTUAL COLONOSCOPY 2005 ZOSTER VACCINES (1 of 2) 2010 PNEUMOCOCCAL VACCINES (50+ years) (2 of 2 - PCV) 10/10/2015 10/10/2014 RSV VACCINE (1 - Risk 60-74 years 1-dose series) 2020 Adult Td,Tdap Booster 02/19/2023 02/19/2013 DEPRESSION SCREENING 08/13/2023 08/13/2022, 06/19/20 21 BLOOD PRESSURE 11/17/2025 05/17/2025 LIPID PANEL 01/12/2030 01/12/2025, 0601/2024, 06/19/2021, Additional history exists COLONOSCOPY 04/03/2033 04/03/2023, 0707/2020, 06/02/2018 COLORECTAL CANCER SCREENING 04/03/2033 HEPATITIS C SCREENING Completed 10/03/2016 COVID-19 VACCINE Completed 11/19/2024, 08/2023, 03/21/2023, Additional history exists SMOKING STATUS SCREENING (Once After 26 Yrs) Completed 05/17/2025 HEPATITIS A VACCINES Aged Out No long er eligible based on patient's age to complete this topic HIB VACCINES Aged Out No longer eligi ble based on patient's age to complete this topic MENINGOCOCCAL VACCINES (ACWY) Aged Out No longer eligible based on patient's age to complete this topic MENINGOCOCCAL VACCINES (B) Aged Out N o longer eligible based on patient's age to complete this topic Medical Devices Implanted Type Area Assistant Customer Service Manager Device Identifier Shelf Expiration Date Model / Serial / Lot Plate Screw Locking R3con 2.7x18mm - [id number] Implanted:Qty: 1 on 05/08/2022 by Aj Wen MD at [facility] Left: Foot [employer] [id number] / / Plate Mtp 5 Degree Short-Short Left 2-Hole Distal - [id number] Implanted:Qty: 1 on 05/08/2022 by Aj Wen MD at [facility] Left: Foot [employer] [id number] / / Plate Screw Locking R3con 2.7x16mm - [id number] Implanted:Qty: 2 on 05/08/2022 by Aj Wen MD at [facility] Left: Foot [employer] [id number] / / Plate Screw Non Locking R3con 2.7x12mm - [id number] Implanted:Qty: 1 on 05/08/2022 by Aj Wen MD at [facility] Left: Foot [employer] [id number] / / Plate Screw Locking R3con 2.7x14mm - [id number] Implanted:Qty: 1 on 05/08/2022 by Aj Wen MD at [facility] Left: Foot [employer] [id number] 4 / / Screw Mini Monster Cannulated Short Threaded Headed 3x24mm - [id number] Implanted:Qty: 1 on 05/08/2022 by Aj Wen MD at [facility] Left: Foot [employer] [id number] / / Explanted Type Area Assistant Customer Service Manager Device Identifier Shelf Expiration Date Model / Serial / Lot K-Wire Single Ended [id number] Trocar Tip Smooth - [id number] Explanted:Qty: 1 on 05/08/2022 by Aj Wen MD at [facility] Left: Foot [employer] [id number] 15 / / Countersink Headed 3.5mm - [id number] Explanted:Qty: 1 on 05/08/2022 by Aj Wen MD at [facility] Left: Foot [employer] [id number] / / K-Wire Bone [id number] Smooth Single Ended - [id number] Explanted:Qty: 1 on 05/08/2022 by Aj Wen MD at [facility] Left: Foot [employer] [id number] / / Procedures Procedure Name Priority Date/Time Associated Diagnosis Comments LIPID PANEL Routine 01/12/2025 3:24 PM EST Mixed hyperlipidemia HM COLONOSCOPY FOR RESULT ENTRY ONLY Routine 04/03/2023 from Last 3 Months or Most Recently Relevant to Health Maintenance Results * (ABNORMAL) Lipid panel (01/12/2025 3:24 PM EST) HDL 73 mg/dL [facility] Comment: Interpretation <40 mg/dL: Low HDL cholesterol (major risk factor for CHD) Greater than or equal to 60 mg/dL: High HDL cholesterol ( negative risk factor for CHD) HDL - cholesterol is affected by a number of factors, e.g. smoking, excerise, hormones, sex and age. CHOLESTEROL 247(H) 0 - 240 mg/dL [facility] TRIGLYCERIDES 100 30 - 160 mg/dL [facility] LDL 154(H) 50 - 129 mg/dL [facility] Comment: LDL levels in terms of risk for coronary heart disease: <100 mg/dL: Optimal 100-129 mg/dL: Near or above optimal 130-159 mg/dL: Borderline high 160-189 mg/dL: High >190 mg/dL: Very High CARDIAC RISK RATIO 3.4 3.4 - 5.0 [facility] Blood 01/12/2025 3:24 PM EST 01/12/2025 3:27 PM EST us Coleman Mcginnis MD LAB BLOOD ORDERABLES Final Re sult [facility] Organization Address City/State/ZIP Co de Phone Number [facility] [address] [place] [address] * COLONOSCOPY FOR RESULT ENTRY ONLY (04/03/2023) Allison Arce GLYCERIN SUPERVISOR HEALTH MAINTENANCE Ed ited Result - Final from Last 3 Months or Most Recently Relevant to Health Maintenance Insurance MEDICARE PART A & B [facility] MEDICARE PART A & [place] * Guarantor: Houston Galindo Account Type Relation to Patient Date of Phone Billing Address Personal/Family Self 1960 [address] [place] [address] MEDICARE PART A & B * Guarantor: Houston Galindo Account Type Relation to Patient Date of Phone Billing Address Personal/Family Self 1960 [address] [place] [address] MEDICARE PART A & B [facility] MEDICARE PART A & B [facility] * Guarantor: Houston Galindo Account Type Relation to Patient Date of Phone Billing Address Personal/Family Self 1960 [address] [facility] [address] [place] [address] MEDICARE PART A & B [facility] MEDICARE PART A & B [facility] & B [facility] MEDICARE PART A & B [place] [facility] PART A & [facility] Advance Directives For more information, please contact: [phone] (9AM - 5PM Michelle/[facility], Friday-Friday) * Full Code (Presumed) (Latest Code Status on File) Date Activated Date Inactivated Comments 01/13/2019 10:20 AM 01/13/2019 3:53 PM Care Teams Auto Body Repair Technician Relationship Specialty Start Date End Date Allison Arce FNP [address] [place] [phone] [email or web address] PCP - General 12/09/17 Velma Mcmahon MSW [address] [place] [address] Entry Engineer 10/06/23 Michelle Morales [address] [place] [address] 08/03/24 Additional Source Comments The information contained in this document represents components of the legal health record. It is not the complete legal health record.[facility]
== END 2025-06-07 12:39 | disposition home or self-care (01) ==
LOC: HO.HGI 11:35
PROVIDERS: PCP Nurse Practitioner Family; Visit Provider Nurse Practitioner
DX: K51.90 Ulcerative colitis, unspecified, without complications (principal)
CPT/HCPCS: 99214

== ENCOUNTER → 2025-06-07 11:35 | Outpatient (BNVA) | payer MEDICARE, MEDICAID, SELFPAY | PROVIDERS: PCP Nurse Practitioner Family; Visit Provider Nurse Practitioner | DX: K51.90 Ulcerative colitis, unspecified, without complications (principal); Z79.52 Long term (current) use of systemic steroids | CPT/HCPCS: 99212 ==

== ENCOUNTER 2025-07-20 14:30 | Outpatient (AMB) | payer MEDICARE, MEDICAID, SELFPAY ==
--- NOTE | 2025-07-20 14:34 | A.OFFVIS_ITS ---
Vital Signs 07/20/25 14:41 Height 5 ft 1 in Weight 141 lb 1.533 oz BMI 26.7 Intake Visit Reasons: 6 wks f/u Intake Note: [place] presents in the office as a 6 week follow up. CC: Wrapper Stitcher Required: No Allergies clindamycin (CLINDAMYCIN) Allergy (Intermediate, Verified 07/20/25 14:39) HIVES egg Allergy (Intermediate, Verified 07/20/25 14:39) Hives Penicillins (PENICILLINS) Allergy (Intermediate, Verified 07/20/25 14:39) RASH,HIVES Sulfa (Sulfonamide Antibiotics) (SULFA(SULFONAMIDE ANTIBIOTICS)) Allergy (Intermediate, Verified 07/20/25 14:39) RASH,HIVES HPI HPI 6 wks f/u: Details: Assessment & Plan (1) Ulcerative colitis: Code(s): K51.90 - Ulcerative colitis, unspecified, without complications Category: Medical (2) Tubular adenoma of colon: Comment: Last scope 03/2023-repeat 2 years; 02/2022 repeat in 2 years due to ulcerative colitis Code(s): D12.6 - Benign neoplasm of colon, unspecified Category: Medical (3) GERD (gastroesophageal reflux disease): Code(s): K21.9 - Gastro-esophageal reflux disease without esophagitis Category: Medical (4) Gas bloat syndrome: Code(s): K92.89 - Other specified diseases of the digestive system Category: Medical (5) Current chronic use of systemic steroids: Code(s): Z79.52 - rat exterminator (current) use of systemic steroids Category: Medical Plan Houston started to do better when he got off of the Rinvoq and back onto his Lialda. While he was on the Rinvoq he developed an infection in his toe and a rather severe cold (and he never gets colds). However shortly after that he developed more cramping and his stomach became more irritable. He then sought Dr. Arauz son and at that time he had broken out again in that rash across his face and upper body and was feeling extremely fatigued. Dr. Arauz son ran a wide battery of tests and prescribed him Rinvoq along with mesalamine suppositories. The mesalamine suppositories only made his symptoms much worse and since it is similar to his Lialda actually the same medication, he stopped it. When I got back I put him on prednisone and this seems to have made him much much better very quickly and cleared up his rash. At this point, since he has had poor experiences with other immuno modulating drugs for IBD he would like to try to find an acceptable chronic prednisone dose. He also did not do well with budesonide although he did better on the 3 mg 3 times tablets that he did on the 12 mg. He is currently on 40 mg of prednisone. We had a long discussion about the rat exterminator side effects and health consequences of utilizing prednisone. This included cataracts, bone thinning and decreased immunity as well as skin thinning. He is also read quite a bit about this and given his lack of response to other interventions he feels like he is willing to accept the side effects and go forward with the therapy. I would prefer for him to continue to try more targeted immunotherapy approaches but he really has had bad experience in his unwilling to go forward with this. We discussed doing a very slow taper 10 mg a month and I will give him the 10 mg tablets to help facilitate this. He also will stay on the Lialda as this I think will help us spare the steroid and get to a lower maintenance dose in order to preserve his general health and minimize long-term steroid side effects. We are going to get a bone density test as a baseline given his high steroid use over his lifetime. Review all of the labs and except for very mild allergy to Chely nuts and walnuts there really was nothing of significance. He has a colonoscopy coming up in March along with an endoscopy. Return office visit in 3 months to see how he is doing with his taper and at that time we will go over the procedure results. If he needs me sooner because his symptoms we exacerbate of course he can call and make an appointment sooner. Orders: Orders XR DEXA axial skeleton Today K51.90 - Ulcerative colitis, unspecified, without complications, Z79.52 - USP (current) use of systemic steroids Medications: New prednisone 40 mg (4 x 10 mg) PO DAILY 120 tabs 0RF K51.90 - Ulcerative colitis, unspecified, without complications Discontinued mesalamine with cleansing wipe 4 gram/60 mL ([place] rectal suspension enema) Discontinued Reason: Patient Completed Course 4 grams (60 mL) [place] BEDTIME 4 ea 2RF prednisone Discontinued Reason: Doctor's Order 3 tabs for 3 days, 2 for 2 days than continue on 2 tabs day orally daily; 63 tabs 3RF K51.90 - Ulcerative colitis, unspecified, without complications DEXA scan 03/2025 IMPRESSION: Based on bone mineral density, and according to World Health Organization (WHO) criteria, the diagnosis is consistent with normal bone mineral density. EGD/COLONOSCOPY 04/05/25 Findings: Larynx:normal Esophagus: GE junction at 37 cm, diaphragm hiatus at 40 cm, consistent with 3 cm sliding hiatal hernia, schatzki ring noted as well and also one tongue of short segement barretts, bx taken as well as from distal esophagus Stomach: atrophic appearing mucosa. Biopsies were obtained. Grade 2 flap valve on retroflexed examination of the cardia. Duodenum: Normal bulb and descending duodenum, bx taken Findings: Terminal Ileum-normal, bx taken Bx taken from right, transverse, left and rectum in separate jars Cecum:normal Ascending Colon: normal Transverse Colon -normal Descending Colon:normal Sigmoid Colon: normal Rectum: Retroflexion with small internal hemorrhoids, grade I Anorectum - normal Impression and Post Procedure Diagnosis: Endoscopy Findings: gastritis possible barretts hiatal hernia schatzki ring Colonoscopy Findings: internal hemorrhoids colitis appears in remission Plan: Await Pathology results Repeat Colonoscopy in 1-2 yrs due to IBD history or earlier if clinically indicated High fiber diet leaflet avoid straining at stool, epsom salts and sitz bath, anusol supps or cream cont with PPI and GERd precautions BIOPSY Received: 04/05/25 Diagnosis A. Duodenum, biopsy: Duodenal mucosa with preserved villi and no specific change. B. Stomach, biopsy: Gastric antral and body mucosa with focal minimal chronic inactive inflammation; negative for H. pylori, intestinal metaplasia and dysplasia. C. Esophagogastric junction, biopsy: Squamocolumnar mucosa with minimal chronic inactive inflammation; negative for intestinal metaplasia and dysplasia. D. Esophagus, distal, biopsy: Squamous mucosa with no specific change; no columnar mucosa present. E. Terminal ileum, biopsy: Ileal mucosa with no specific change; no ileitis, granulomas or dysplasia. F. Colon, right, biopsy: Colonic mucosa with lymphoid aggregates and minor crypt distortion, otherwise no specific change; no colitis, granulomas or dysplasia. G. Colon, transverse, biopsy: Colonic mucosa with minor crypt distortion, otherwise no specific change; no colitis, granulomas or dysplasia. H. Colon, left, biopsy: Colonic mucosa with minor crypt distortion, otherwise no specific change; no colitis, granulomas or dysplasia. I. Colon, rectum, biopsy: Colonic mucosa with lymphoid aggregates and minor crypt distortion, otherwise no specific change; no colitis/proctitis, granulomas or dysplasia. TODAY'S VISIT- [facility] Medical History (Updated 07/20/25 @ 15:00 by JANIYA Napier) Weight loss, abnormal C. 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 H/O carpal tunnel repair Social History Household Members: None Are you a primary child caregiver private home to a significant other at home: No Do you presently have visiting nurse or other home services: No Alcohol intake: current Alcohol intake frequency: holidays/special occasions only Patient Tobacco Use Status: Never used Tobacco Substance Use Type: Marijuana Current occupational status: employed Current occupation: [employer] Const Denies fatigue, Denies fever(s), Denies night sweats, Denies poor appetite, Reports weight gain and Denies weight loss ENT Reports Normal hearing present, Denies dysphagia, Denies odynophagia, Denies throat swelling and Denies tongue swelling Card Reports no additional complaints Resp Reports no additional complaints GI Details: Denies abdominal pain, Denies melena, Denies bloating, Denies hematochezia, Denies constipation, Reports GI cramping, Denies dysphagia, Denies excessive flatus, Denies early satiety, Reports heartburn, Denies diarrhea, Denies nausea, Denies odynophagia, Denies vomiting and Denies hematemesis Skin/Breast Denies pruritus, Denies lesions, Denies rash and Denies jaundice Neuro Reports Normal hearing present and Denies Abnormal speech present Endo Denies fatigue Aller/Immun Denies throat swelling and Denies tongue swelling Physical Exam Vital Signs: BMI result Body Mass Index 26.7 Const General: cooperative, no acute distress, well developed and well groomed Nutritional Appearance: well nourished and obese centrally obese Orientation/consciousness: oriented to person, oriented to place and oriented to time Limitations: No language barrier HEENT Head: Yes normocephalic and Yes atraumatic Eyes General: appearance normal, both eyes and all related structures Pupils: Equal, round and reactive pupils present Neck Neck: Yes normal visual inspection and Yes no lymphadenopathy Thyroid: Thyroid normal Resp Effort & Inspection: normal respiratory effort and able to speak in complete sentences Auscultation: clear to auscultation bilaterally Cardio Rate: regular rate Rhythm: regular rhythm Heart sounds: Normal, physiologic split S2 sound present Peripheral pulses: radial pulses present and posterior tibial pulses present GI Inspection: No distended, No Abdominal panniculus present and Yes obesity Palpation (GI): Soft to palpation, nontender, no guarding, not rigid and No hepatosplenomegaly present Percussion: Yes normal to percussion Auscultation: normal bowel sounds Rectal Exam - Male: Yes deferred Skin General skin exam: no rashes or lesions noted, turgor normal, skin not dry, no jaundice, No spider nevi and no striae Rashes: no rashes Nails: normal Neuro General: oriented to person, oriented to place and oriented to time Cranial nerves: Yes Equal, round and reactive pupils present and Yes Normal h earing present Speech: No Abnormal speech present Extrem General: Yes normal to inspection, No clubbing, No cyanosis and No edema Psych Appearance: grossly normal and well kempt Mental Status: mental status grossly normal Speech and movement: Normal speech and movement present Affect: normal affect Attitude: cooperative Thought process: Normal thought process present and not confabulating Thought content: Normal thought content present Insight: Fair insight present (Psych) Judgement: Fair judgement present (Psych) Results Reviewed Results Reviewed: DEXA scan 03/2025 IMPRESSION: Based on bone mineral density, and according to World Health Organization (WHO) criteria, the diagnosis is consistent with normal bone mineral density. EGD/COLONOSCOPY 04/05/25 Findings: Larynx:normal Esophagus: GE junction at 37 cm, diaphragm hiatus at 40 cm, consistent with 3 cm sliding hiatal hernia, schatzki ring noted as well and also one tongue of sh ort segement barretts, bx taken as well as from distal esophagus Stomach: atrophic appearing mucosa. Biopsies were obtained. Grade 2 flap valve on retroflexed examination of the cardia. Duodenum: Normal bulb and descending duodenum, bx taken Findings: Terminal Ileum-normal, bx taken Bx taken from right, transverse, left and rectum in separate jars Cecum:normal Ascending Colon: normal Transverse Colon -normal Descending Colon:normal Sigmoid Colon: normal Rectum: Retroflexion with small internal hemorrhoids, grade I Anorectum - normal Impression and Post Procedure Diagnosis: Endoscopy Findings: gastritis possible barretts hiatal hernia schatzki ring Colonoscopy Findings: internal hemorrhoids colitis appears in remission Plan: Await Pathology results Repeat Colonoscopy in 1-2 yrs due to IBD history or earlier if clinically indicated High fiber diet leaflet avoid straining at stool, epsom salts and sitz bath, anusol supps or cream cont with PPI and GERd precautions BIOPSY Received: 04/05/25 Diagnosis A. Duodenum, biopsy: Duodenal mucosa with preserved villi and no specific change. B. Stomach, biopsy: Gastric antral and body mucosa with focal minimal chronic inactive inflammation; negative for H. pylori, intestinal metaplasia and dysplasia. C. Esophagogastric junction, biopsy: Squamocolumnar mucosa with minimal chronic inactive inflammation; negative for intestinal metaplasia and dysplasia. D. Esophagus, distal, biopsy: Squamous mucosa with no specific change; no columnar mucosa present. E. Terminal ileum, biopsy: Ileal mucosa with no specific change; no ileitis, granulomas or dysplasia. F. Colon, right, biopsy: Colonic mucosa with lymphoid aggregates and minor crypt distortion, otherwise no specific change; no colitis, granulomas or dysplasia. G. Colon, transverse, biopsy: Colonic mucosa with minor crypt distortion, otherwise no specific change; no colitis, granulomas or dysplasia. H. Colon, left, biopsy: Colonic mucosa with minor crypt distortion, otherwise no specific change; no colitis, granulomas or dysplasia. I. Colon, rectum, biopsy: Colonic mucosa with lymphoid aggregates and minor cr ypt distortion, otherwise no specific change; no colitis/proctitis, granulomas or dysplasia. Assessment & Plan Assessment & Plan (1) Upper abdominal pain: Code(s): R10.10 - Upper abdominal pain, unspecified Category: Medical (2) Crohn's disease in remission: Code(s): K50.90 - Crohn's disease, unspecified, without complications Category: Medical Plan His current GI regimen consists of Lialda 4.6 g a day, prednisone 11 mg a day, Citrucel once a day and pantoprazole 20 mg twice a day. - The patient is a 64-year-old male presenting with bowel symptoms related to Crohn's Disease. - His diagnosis was revised from ulcerative colitis to Crohn?s based on recent colonoscopy and biopsy findings. This is based on the finding of some crypt distortion higher up in the transverse colon which would be more indicative of problems. - Symptoms include generalized abdominal cramping and increased frequency of bowel movements, reporting no blood or diarrhea, attributed to dietary adjustments including high-fiber intake. - There was a previous regimen of prednisone that initially controlled symptoms well, but reducing the dosage has led to recurring cramping. However his bowel movements happen formed and he has not had any bleeding or other diarrheal symptoms consistent with past exacerbations. He has had a very difficult time tapering the prednisone mostly related to appetite and fatigue. - we have tried to progress him past prednisone and mesalamine to more advanced agents, but he either has not tolerated them as was the case with Rinvoq or he did not like most of the research about these medications in the case of Humira. - An ultrasound is suggested to assess potential gallstones, as f his full fat [place] in the morning seems to be causing him some indigestion. - we discussed COVID vaccination since he is immune suppressed, I strongly recommend that once the new updated vaccine comes out that he get it. Should he ever come down with COVID he can contact our office as he had concerns about taking Paxlovid along with his antihypertensive medications. Given the difficulty he has had with the wean, I think we will stabilize him at 15 mg of prednisone for 3 months and then attempt to wean him much more slowly with intervals of stable dosing over a series of months to allow his body to adjust to likely adrenal suppression. Obviously we will continue his Lialda and is pantoprazole. Return office visit in 3 months ULTRASOUND OF THE ABDOMEN Orders: Orders US abdomen complete Today R10.10 - Upper abdominal pain, unspecified Medications: Refilled prednisone 5 mg PO BID 60 tabs 6RF K51.90 - Ulcerative colitis, unspecified, without complications Discontinued sennosides (senna) Discontinued Reason: Doctor's Order 17.2 mg (2 x 8.6 mg) PO BEDTIME 180 tabs 2RF Coding Level of Care Code Est Pt Level 4 (02287) Diagnoses Upper abdominal pain R10.10 Crohn's disease in remission K50.90 Time Spent (min) 38
[2025-07-20 14:41] VITALS: BMI 26.7
--- OUTSIDE RECORDS SUMMARY | 2025-07-20 16:47 | XMS_ITS | Encounter Summary ---
Author Organization [facility] Address [address] [facility] [address] [place] [phone] Phone Care Team Providers Care Carbon Paste Mixer Operator Name Role Phone Allison Arce CAUSTIC MIXER Primary Care Provide r Varinder Rocha NP Unavailable Velma Mcmahon Unavailable Unavailable iMchelle Morales Unavailable Unavailable Encounter Details Date Type Department Care Team (Late st Contact Info) Description 09/05/2022 Telephone [facility] [address] [place], [place] [phone] Allison Arce FNP [address] [place], [place] [phone] [email or web address] Social History Tobacco Use Types Packs/Day Years Used Date Smoking Tobacco: Never Smokeless Tobacco: Never Alcohol Use Standard Drinks/Week Comments Yes 3 (1 standard drink = 0.6 oz pur e alcohol) Child or Family Care Answer Date Record ed Do you have problems with on e of the following making it difficult for you to work, study, or receive health care? No 08/13/2022 Education Answer Date Recorded Are you interested in help w ith more adult education (for example, completing high school, GED, job training, learning the Sammar[place] language, technical skills, or developing parenting skills)? No 08/13/2022 Food Answer Date Recorded Within the past [...] your housing situation today? I have [facility] 08/13/2022 How many times have you move [...] basis, and looking for work? No 08/13/2022 Comments No Sex and Gender Information Value Date Recorded Sex Assigned at Female 04/22/2018 12:08 PM EDT Legal Sex Male 12:14 PM EST Gender Identity Male 04/22/2018 12:08 PM EDT Sexual Orientation Straight 04/27/2020 8: 07 PM EDT documented as of this encounter Plan of Treatment Upcoming Encounters Date Type Department Care Team (Late st Contact Info) Description 10/21/2025 2:00 PM EST Office Visit [address] [address] Allison Arce FNP [address] [place] [address] 11/30/2025 1:00 PM EST Office Visit [facility] [address] [place] [address] [address], [address] [place] [address] Coleman Mcginnis MD [address] [place] [phone] documented as of this encounter Visit Diagnoses Not on filedocumented in this encounter Additional Health Concerns Infection Onset Date Last Indicated Resolved Time COVID-19 06/07/2024 06/07/2024 06/28/2024 1:21 AM EDT Assessment Noted Time PHQ-9 Depression Total Score: 12 021 10:35 AM EDT PHQ-2 Depression Total Score: 2 08/13/20 22 5:17 PM EDT documented as of this encounter Care Teams Carbon Paste Mixer Operator Relationship Specialty Start Date End Date Allison Arce FNP [address] [place] [phone] [email or web address] PCP - General 12/09/17 Varinder Rocha NP [address] [place] [phone] Psychiatrist 07/22/22 12/07/23 Velma Mcmahon MSW [address] [place] [address] Staff Research Associate 10/06/23 Michelle Morales [address] [place] [address] 08/03/24 Aditya Garcia Staff Research Associate Student 09/17/22 5 documented as of this encounter Additional Source Comments The information contained in this document represents components of the legal health record. It is not the complete legal health record.[facility]
--- OUTSIDE RECORDS SUMMARY | 2025-07-20 16:47 | XMS_ITS | Clinical Summary ---
Author Organization [facility] Address [facility] [address] [place] [address] Phone Care Team Providers Care Window Glazier Name Role Phone Allison Arce MONOMER RECOVERY OPERATOR Primary Care Provide r Velma Mcmahon WANT AD CLERK Unavailable Unavailable Michelle Morales Unavailable Unavailable Allergies [...] 2 (two) times a day. 1 each 021 Active needle, disp, 25 gauge (BD REGULAR BEVEL NEEDLES) 25 gauge x 5/8 Ndle 1 each by Miscellaneous route every 7 days. 25 each 1 022 Active needle, disp, 18 G (BD REGULAR BEVEL NEEDLES) 18 gauge x 1 NdleIndications:Ge nder dysphoria in adult Weekly draw needle May substitute 1.5 needle if 1 needle not available. 12 each 3 023 Active needle, disp, 25 gauge 25 gauge x 1 11/18 NdleIndications:Ge nder dysphoria in adult Inject 1 each into the muscle every 7 days. For intramuscular injection 12 each 3 023 Active syringe, disposable, 1 mL Syrg 1 each by Miscellaneous route every 7 days. Use for injection of testosterone, with 25g needles 12 each 3 023 Active evolocumab (REPATHA SURECLICK) 140 mg/mL PnIj subcutaneous pen injector Inject 1 mL (140 mg total) under the skin every 14 (fourteen) days. 6 mL 3 024 Active clonazePAM (KLONOPIN) 1 MG tablet Take 1 tablet by mouth 2 (two) times a day. 024 Active traZODone (DESYREL) 50 MG tablet take 1 tablet by mouth everyday at bedtime 024 Active penciclovir (DENAVIR) 1 % creamIndications:H erpes labialis APPLY TOPICALLY 2 (TWO) TIMES A DAY. 90 DAY SUPPLY 60 g 3 024 Active predniSONE (DELTASONE) 20 MG tablet 25 mg. 024 Active cetirizine (ZYRTEC) 10 MG tabletIndications: Allergies TAKE 1 TABLET BY MOUTH EVERY DAY 90 tablet 3 025 Active metoprolol succinate (TOPROL-XL) 50 MG 24 hr tablet TAKE 1 TABLET (50 MG TOTAL) BY MOUTH DAILY. TAKE THIS IN ADDITION TO THE AMLODIPINE. 90 tablet 1 025 Active albuterol 90 mcg/actuation inhaler USE 2 INHALATIONS EVERY 6 HOURS NEEDED FOR WHEEZING OR SHORTNESS OF BREATH / DYSPNEA 25.5 g 2 025 Active SENNA 8.6 mg tablet take two tablets by mouth every night at bedtime 025 Active ondansetron (ZOFRAN-ODT) 4 MG disintegrating tablet Take 1 tablet (4 mg total) by mouth every 8 (eight) hours as needed for nausea. 28 tablet 2 025 Active testosterone cypionate (DEPO-TESTOTERONE) 200 mg/mL injectionIndicatio ns:Gender dysphoria in adult INJECT 0.25ML INTO THE SKIN ONCE WEEKLY 4 mL 08/11/2 025 Active amLODIPine (NORVASC) 2.5 MG tablet TAKE 1 TABLET BY MOUTH EVERY DAY 90 tablet 3 025 Active amLODIPine (NORVASC) 2.5 MG tablet Take 1 tablet (2.5 mg total) by mouth daily. 90 tablet 3 024 2024 Discontinued testosterone cypionate (DEPO-TESTOTERONE) 200 mg/mL injectionIndicatio ns:Gender dysphoria in adult INJECT 0.25ML INTO THE SKIN ONCE WEEKLY 4 mL 5 025 2024 Discontinued Active Problems Patient Care Coordination No te Formatting of this note migh t be different from the original. Houston Galindo presents in session today as prepared and friendly. The goal of meeting today was to establish contact and discuss Houston's needs regarding his certificate change status, some issues he's had with regional transfer liaison re certificate, and some questions he had regarding insurance, medicare, and [employer]. The plan going forward is for thx [...] Age-related incipient cataract of left eye 01/20 Carnes's cyst of knee, left 08/25/2023 Arthritis of right knee 07/30/2023 Screening for colon cancer 04/17/2023 Overview (07/21/2023): colonoscopy, repeat [id number] as per GI Recurrent herpes labialis 03/12/2023 [...] absorb nutrients. We discussed meeting with a chief deputy court clerk to help him find cholesterol lowering ways to increase his calorie count. He will work on his diet and follow-up in 6 months. Assessment & Plan (12/27/2021 8:53 AM EST): Pt declines statin Dec 2021 Hearing loss 04/28/2019 PTSD (post-traumatic stress disorder) 04/22/2018 Overview (04/22/2018): Sees Vale Martinez at [facility] Anxiety 04/22/2018 IBS (irritable colon syndrome) 04/22/2018 Overview (04/22/2018): initially diagnosed with UC on colonoscopy but has had multiple unremarkable colonoscopies since. Sees Dr. Emilie Nash, GI in [place] Transgender 04/22/2018 Overview (04/22/2018): S/p double mastectomy (2009, revision 2017), s/p BSO-Hyst (2017) Ulcerative colitis 10/23/2017 Right carpal tunnel syndrome Hallux rigidus of left foot Resolved Problems Problem Noted Date Diagnosed Date Resolved Date C. difficile colitis 09/16/2023 025 Overview (09/16/2023): Diagnosed 08/2023 via [facility] at [facility]. Started on abx Elevated BP without diagnosis of hypertension 06/19/20 21 01/31/2022 Basal cell carcinoma (BCC) 04/28/2019 0 04/28/2019 Overview (04/28/2019): Hx of Mohs procedure to nose Encounters Date Type Department Care Team Description 07/05/2025 11:00 AM EDT Telemedicine [facility] [address] [place] [address] [phone] Allison Arce, TO Benign essential hypertension (Primary Dx); Mixed hyperlipidemia; Other ulcerative colitis with complication 07/05/2025 Refill [facility] [address] [place] [phone] Allison Arce, TO Medication Refill 06/26/2025 Refill [facility] [address] [place] [address] [phone] Allison Arce, TO Medication Refill 05/17/2025 1:00 PM EDT Office Visit [facility] [address]rd Floor, [address] [place], [place] [id number] Nano Shah DNP Mixed hyperlipidemia (Primary Dx); Benign essential hypertension 04/30/2025 Orders Only [facility] [address] [place] [address] [phone] Maranda March PA Allergy, initial encounter (Primary Dx); Asthma, unspecified asthma severity, unspecified whether complicated, unspecified whether persistent 04/27/2025 Refill [facility] [address] [place] [address] [phone] Allison Arce, MONOMER RECOVERY OPERATOR Medication Refill from Last 3 Months Immunizations Immunization Administration Dates Next Due COVID-19 (Pre-09/08) Pfizer Vaccine, mRNA, PF 02/14/2021,01/23/2021 INFLUENZA, SPLIT VIRUS, TRIV ALENT W/ PRESERVATIVE IM 08/19/2014 Influenza Quadrivalent MDCK Preservative Free IM 08/26/2023,08/19/2022,09/10/2021 Influenza Recombinant Saray valent Preservative Free IM 07/19/2020 Influenza Split (Incl. Purif ied Surface Antigen) 09/23/2012 Pneumococcal polysaccharide PPSV23 10/10/2014 Tdap 02/19/2013 Social [...] to work, study, or receive health care? Family care (i.e. spouse, parents, other family) 06/28/2025 Education Answer Date Recorded Are you interested in help w ith more adult education (for example, completing high school, GED, job training, learning the [place] language, technical skills, or developing parenting skills)? No 06/28/2025 Are you concerned about learning? Not on file 06/28/2025 No 06/28/2025 Yes 06/28/2025 Food Answer Date Recorded Within the past 6 months we worried whether our food would run out before we got money to buy more. Sometimes True 025 Within the past 6 months the food we bought just didn't last and we didn't have enough money to get more. Sometimes True 06/17 Residential Stability Answer Date Recor ded What is your housing situation today? I have kb sing 06/28/2025 How many times have you move d in the past 12 months? Zero (I did not move) 06/28/2025 Paying for Meds Answer Date Recorded Do you have trouble paying for medicines? No 06/28/2025 Paying Utility Bills Answer Date Record ed Do you have trouble paying your heating or elect ricity bill? Yes 06/28/2025 Transportation Answer Date Recorded Has the lack of transportati on kept you from medical appointments or from getting medications? Yes 06/28/2025 Unemployment Answer Date Recorded Are you currently unemployed or working on a part-time or temporary basis, and looking for work? No 08/13/2022 Digital Access Answer Date Recorded Yes 06/28/2025 Yes 06/28/2025 Do you have reliable internet access at home? No 06/28/2025 Do you have a device (e.g., phone, tablet, computer) with a working camera? Yes 06/28/2025 Intimate Partner Violence Answer Date R ecorded Are you denied basic needs s uch as food, clothing, or medical care? No 06/28/2025 In the past 12 months have y ou been in a relationship with a person who hurts, threatens, or tries to control you? No 06/28/2025 Are you denied basic needs s uch as food, clothing, or medical care? No 06/28/2025 In the past 12 months have y ou been in a relationship with a person who hurts, threatens, or tries to control you? No 06/28/2025 Comments No Sex and Gender Information Value [...] Description 10/21/2025 2:00 PM EST Office Visit [address] [phone] Allison Arce FNP 10 [place] [address] 11/30/2025 1:00 PM EST Office Visit [facility] [address] Floor, [address] [place] [address] Coleman Mcginnis MD [address] [place] [address] Health Maintenance Due Date Last Done Comments HIV ONE-TIME SCREENING (18-65 YEARS) 1978 COLOGUARD 2005 FIT TEST 2005 FOBT 2005 SIGMOIDOSCOPY 2005 VIRTUAL COLONOSCOPY 2005 ZOSTER VACCINES (1 of 2) 2010 PNEUMOCOCCAL VACCINES (50+ years) (2 of 2 - PCV) 10/10/2015 10/10/2014 RSV VACCINE (1 - Risk 60-74 years 1-dose series) 2020 Adult Td,Tdap Booster 02/19/2023 02/19/2013 DEPRESSION SCREENING 08/13/2023 08/13/2022, 06/19/20 21 INFLUENZA VACCINE (#1) 2025 , 08/26/2023, 08/19/2022, Additional history exists BLOOD PRESSURE 11/17/2025 05/17/2025 LIPID PANEL 01/12/2030 01/12/2025, 06/1 01/2024, 06/19/2021, Additional history exists COLONOSCOPY 04/03/2033 04/03/2023, 07/0 07/2020, 06/02/2018 COLORECTAL CANCER SCREENING 04/03/2033 HEPATITIS C SCREENING Completed 10/03/2016 COVID-19 VACCINE Completed 11/19/2024, 08/2023, 03/21/2023, Additional history exists SMOKING STATUS SCREENING (Once After 26 Yrs) Completed 07/05/2025 HEPATITIS A VACCINES Aged Out No long [...] this topic Medical Devices Implanted Type Area Flexible Shaft Winder Device Identifier Shelf Expiration Date Model / Serial / Lot Plate Screw Locking R3con 2.7x18mm - [id number] Implanted:Qty: 1 on 05/08/2022 by Aj Wen MD at [facility] Left: Foot [employer] [id number] / / Plate Mtp 5 Degree Short-Short Left 2-Hole Distal - [id number] Implanted:Qty: 1 on 05/08/2022 by Aj Wen MD at [facility] Left: Foot [employer] [id number] / / Plate Screw Locking R3con 2.7x16mm - [id number] Implanted:Qty: 2 on 05/08/2022 by Aj Wen MD at [facility] Left: Foot [employer] [id number] / / Plate Screw Non Locking R3con 2.7x12mm - [id number] Implanted:Qty: 1 on 05/08/2022 by Aj Wen MD at [facility] Left: Foot [employer] [id number] / / Plate Screw Locking R3con 2.7x14mm - [id number] Implanted:Qty: 1 on 05/08/2022 by Aj Wen MD at [facility] Left: Foot [employer] [id number] / / Screw Mini Monster Cannulated Short Threaded Headed 3x24mm - [id number] Implanted:Qty: 1 on 05/08/2022 by Aj Wen MD at [facility] Left: Foot [employer] [id number] S / / Explanted Type Area Flexible Shaft Winder Device Identifier Shelf Expiration Date Model / Serial / Lot K-Wire Single Ended [id number] Trocar Tip Smooth - [id number] Explanted:Qty: 1 on 05/08/2022 by Aj Wen MD at [facility] Left: Foot [employer] [id number] 15 / / Countersink Headed 3.5mm - [id number] Explanted:Qty: 1 on 05/08/2022 by Aj Wen MD at [facility] Left: Foot [employer] [id number] / / K-Wire Bone [id number] Smooth Single Ended - [id number] Explanted:Qty: 1 on 05/08/2022 by Aj Wen MD at [facility] Left: Foot [employer] [id number] / / Procedures Procedure Name Priority Date/Time Associated Diagnosis Comments LIPID PANEL Routine 01/12/2025 3:24 PM EST Mixed hyperlipidemia COLONOSCOPY FOR RESULT ENTRY ONLY Routine 04/03/2023 from Last 3 Months or Most Recently Relevant to Health Maintenance Results * (ABNORMAL) Lipid panel (01/12/2025 3:24 PM EST) HDL 73 mg/dL [facility] Comment: Interpretation <40 mg/dL: Low HDL cholesterol (major risk factor for CHD) Greater than or equal to 60 mg/dL: High HDL cholesterol ( negative risk factor for CHD) HDL - cholesterol is affected by a number of factors, e.g. smoking, excerise, hormones, sex and age. CHOLESTEROL 247(H) 0 - 240 mg/dL [facility] TRIGLYCERIDES 100 30 - 160 mg/dL [facility] LDL 154(H) 50 - 129 mg/dL [facility] Comment: LDL levels in terms of risk for coronary heart disease: <100 mg/dL: Optimal 100-129 mg/dL: Near or above optimal 130-159 mg/dL: Borderline high 160-189 mg/dL: High >190 mg/dL: Very High CARDIAC RISK RATIO 3.4 3.4 - 5.0 C [facility] Blood 01/12/2025 3:24 PM EST 01/12/2025 3:27 PM EST us Coleman Mcginnis MD LAB BLOOD ORDERABLES Final Re sult [address] [address] * COLONOSCOPY FOR RESULT ENTRY ONLY (04/03/2023) Allison Sonya Claude [facility] HEALTH MAINTENANCE Ed ited Result - Final from Last 3 Months or Most Recently Relevant to Health Maintenance Insurance MEDICARE PART A & B MEDICARE PART A & B MEDICARE PART A & B HEALTH MEDICARE PART A & B HEALTH MEDICARE PART A & B HEALTH MEDICARE PART A & B MEDICARE PART A & B HEALTH MEDICARE PART A & B [place]ALTH MEDICARE [place] & [place] [facility] [facility] & [facility] Advance Directives For more information, please contact: [phone] (9AM - 5PM [facility], Friday-Friday) * Full Code (Presumed) (Latest Code Status on File) Date Activated Date Inactivated Comments 01/13/2019 10:20 AM 01/13/2019 3:53 PM Care Teams Window Glazier Relationship Specialty Start Date End Date Allison Arce FNP [address] [place] [address] PCP - General 12/09/17 Velma Mcmahon MSW [address] [place] [address] Lining Parts Sewer 10/06/23 Michelle Morales [address] [place], [place] 08/03/24 Additional Source Comments The information contained in this document represents components of the legal health record. It is not the complete legal health record.[facility]
--- OUTSIDE RECORDS SUMMARY | 2025-07-20 16:47 | XMS_ITS | Encounter Summary ---
Author Organization [facility] Address [facility] [address] [address] Phone Care Team Providers Care Integration Engineer Name Role Phone Allison Arce HEALTH EVALUATOR Primary Care Provide r Rubia Barkley DO Unavailable [phone] Varinder Rocha CLOTH TRIMMER HAND Unavailable Velma Mcmahon PROTOTYPER Unavailable Unavailable Michelle Morales Unavailable Unavailable Encounter Details Date Type Department Care Team (Late st Contact Info) Description 01/13/2019 Procedure Pass OR Admitting Dept - Virtual Department [address] [place] [phone] Social History Tobacco Use Types Packs/Day Years Used Date Smoking Tobacco: Never Smokeless Tobacco: Never Alcohol Use Standard Drinks/Week Comments Yes 0 (1 standard drink = 0.6 oz pur e alcohol) a couple times a week Comments No Sex and Gender Information Value Date Recorded Sex Assigned at Female 04/22/2018 12:08 PM EDT Legal Sex Male 12:14 PM EST Gender Identity Male 04/22/2018 12:08 PM EDT Sexual Orientation Straight 04/27/2020 8: 07 PM EDT documented as of this encounter Plan of Treatment Upcoming Encounters Date Type Department Care Team (Late Contact Info) Description 10/21/2025 2:00 PM EST [facility] Visit [facility] [address] [place] [address] [phone] Allison Arce FNP [address] [place] [address] [phone] 11/30/2025 1:00 PM EST Office Visit [facility] [address] [facility] [address] [place] [address] Coleman Mcginnis MD [address] [place] [address] documented as of this encounter Visit Diagnoses Not on filedocumented in this encounter Additional Health Concerns Infection Onset Date Last Indicated Resolved Time CoV-Risk 10/23/2021 10/23/2021 11/02/2021 1:24 AM EST CoV-Exposed Comment:Recent close contact documented in the COVID-19 PCR/PRO order 10/23/2021 10/23/2021 11/07/2021 1:[address] CoV-Risk 12/24/2021 12/25/2021 01/04/2022 1:23 AM EST COVID-19 06/07/2024 06/07/2024 06/28/2024 1:21 AM EDT Assessment Noted Time PHQ-2 Depression Total Score: 4 04/22/20 18 11:39 AM EDT documented as of this encounter Care Teams Integration Engineer Relationship Specialty Start Date End Date Allison Arce FNP [address] [place] [address] PCP - General 12/09/17 Rubia Barkley DO [address] [place] [phone] [email or web address] Family Medicine 12/07/18 08/21/21 Varinder Rocha NP [address] [place] [address] [address] [place] [address] Psychiatrist 07/22/22 12/07/23 Velma Mcmahon MSW 10 [place], [place] Stonework Supervisor 10/06/23 Michelle Morales [address] [place] [address] 08/03/24 Aditya Garcia Stonework Supervisor Student 09/17/22 5 documented as of this encounter Additional Source Comments The information contained in this document represents components of the legal health record. It is not the complete legal health record.[facility]
--- OUTSIDE RECORDS SUMMARY | 2025-07-20 16:47 | XMS_ITS | Encounter Summary ---
Author Organization [facility] Address [facility] [employer] [facility] [address] [place] [phone] Phone Care Team Providers Care Outreach Manager Name Role Phone Allison Arce TRACK HELPER Primary Care Provide r Rubia Barkley DO Unavailable Varinder Rocha TOWN PLANNER Unavailable [phone] [address]mahon PIPE FITTER STREET SERVICE Unavailable Unavailable Michelle Morales Unavailable Unavailable Encounter Details Date Type Department Care Team (Late Contact Info) Description 12/31/2018 Prep for Surgery [facility] [address] [place] [address] Socorro Walters MD [address] [place] [address] Orthopedics & Sports Medicine, [facility] [place] [address] Social History Tobacco Use Types Packs/Day Years Used Date Smoking Tobacco: Never Smokeless Tobacco: Never Comments Unknown Sex and Gender Information Value Date Recorded Sex Assigned at Female 04/22/2018 12:08 PM EDT Legal Sex Male 12:14 PM EST Gender Identity Male 04/22/2018 12:08 PM EDT Sexual Orientation Straight 04/27/2020 8: 07 PM EDT documented as of this encounter Plan of Treatment Upcoming Encounters Date Type Department Care Team (Late Contact Info) Description 10/21/2025 2:00 PM EST Office Visit [facility] [phone] Allison Arce FNP 10 [place] [address] 11/30/2025 1:00 PM EST Office Visit [facility] [address] [place] [address] [address]rd Floor, [address] [place] [address] Coleman Mcginnis MD 50 [place] [address] [email or web address] documented as of this encounter Visit Diagnoses [...] documented as of this encounter Care Teams Outreach Manager Relationship Specialty Start Date End Date Allison Arce FNP 10 [place] [address] PCP - General 12/09/17 Rubia Barkley DO [address] [place] [phone] [email or web address] Medicine 12/07/18 08/21/21 Varinder Rocha NP 10 [facility] 3 [place] [address] Psychiatrist 07/22/22 12/07/23 Velma Mcmahon MSW 10 [place], [place] Tiedown Operator 10/06/23 Michelle Morales 10 [place], [place] 08/03/24 Aditya Garcia Tiedown Operator Student 09/17/2202/09/ 5 documented as of this encounter Additional Source Comments The information contained in this document represents components of the legal health record. It is not the complete legal health record.[facility]
--- OUTSIDE RECORDS SUMMARY | 2025-07-20 16:47 | XMS_ITS | Encounter Summary ---
Author Organization [facility] Address [address] [place] [phone] Phone Care Team Providers Care Commercial Cleaner Name Role Phone Starlb Allison Purcellah BAKER BISCUIT Primary Care Provide r Velma Mcmahon GASOLINE SERVICE ATTENDANT Unavailable Unavailable Michelle Morales Unavailable Unavailable Encounter Details Date Type Department Care Team (Late st Contact Info) Description 07/02/2024 Procedure Pass Echo [facility] [place] [address] [place] [address] Social History Tobacco Use Types Packs/Day Years Used Date Smoking Tobacco: Never Smokeless Tobacco: Never Alcohol Use Standard Drinks/Week Comments Not Currently [...] high school, GED, job training, learning the Slovak language, technical skills, or developing parenting skills)? [...] Description 10/21/2025 2:00 PM EST Office Visit [facility] [phone] Allison Arce FNP [address] [place] [address] 11/30/2025 1:00 PM EST Office Visit [facility] [address] [place] [address] [address]rd Floor, [address] [place] [address] Coleman Mcginnis MD [address] [place] [phone] [email or web address] documented as of this encounter Visit Diagnoses Not on filedocumented in this encounter Additional Health Concerns Assessment Noted Time PHQ-9 Depression Total Score: 12 021 10:35 AM EDT PHQ-2 Depression Total Score: 2 08/13/20 22 5:17 PM EDT documented as of this encounter Care Teams Commercial Cleaner Relationship Specialty Start Date End Date Allison Arce FNP [address] [place] [address] [email or web address] PCP - General 12/09/17 Velma Mcmahon MSW [address] [place] [address] Track Vehicle Repairer 10/06/23 Michelle Morales [address] [place] [address] 08/03/24 Aditya Garcia Track Vehicle Repairer Student 09/17/22 5 documented as of this encounter Additional Source Comments The information contained in this document represents components of the legal health record. It is not the complete legal health record.[facility]
--- OUTSIDE RECORDS SUMMARY | 2025-07-20 16:47 | XMS_ITS | Encounter Summary ---
Author Organization [facility] Address [address] [place] [address] Phone Care Team Providers Care Invertebrate Paleontologist Name Role Phone Valdez Lau MD Unavailable Elvira Vazquez MD Unavailable Gloria Saavedra MD Unavailable [phone] Brandon Lei MD Unavailable Flavia Doyle MD Unavailable Miguel Hampton MD Unavailable [phone] Chris Deleon MD Unavailable Regan Dyer MD Unavailable [email or web address] Allison Rico Unavailable Allison Arce [facility] Primary Care Provide r Rubia Barkley DO Unavailable Varinder Rocha NP Unavailable Velma Mcmahon Unavailable Unavailable Michelle Morales Unavailable Unavailable Encounter Details Date Type Department Care Team (Late st Contact Info) Description 09/09/2018 Transcribe Orders [facility] Laboratory [address] [place] [address] Emilie Hunt MD [address] [place] [address] Dr [place] [phone] Inflammatory bowel disease (Primary Dx) Social History Tobacco Use Types Packs/Day Years [...] Description 10/21/2025 2:00 PM EST Office Visit [address] [phone] Allison Arce FNP [address] [place] [address] [phone] [email or web address] 11/30/2025 1:00 PM EST Office Visit [facility] [address] [place] [address] 3rd Floor, [address] [place] [address] Coleman Mcginnis MD [address] [place] [address] documented as of this encounter Results * CBC and differential (09/09/2018 2:23 PM EDT) WBC 6.72 3.40 - 11.20 K/uL [facility] RBC 4.47 3.80 - 4.80 M/uL [facility] HGB 13.6 12.0 - 15.0 g/dL [facility] HCT 40.0 36.0 - 46.0 % [facility] PLT 255 130 - 400 K/uL [facility] MCV 89.5 79.0 - 98.0 fL [facility] MCH 30.4 27.0 - 34.8 pg [facility] MCHC 34.0 31.5 - 36.0 g/dL [facility] RDW 11.9 10.8 - 14.6 % [facility] MPV 10.4 9.4 - 12.4 fl [facility] NRBC 0.00 /100 WBCs [facility] ABSOLUTE NRBC 0.00 K/uL [facility] DIFF METHOD Auto [facility] NEUTS 65.4 45.30 - 77.70 % [facility] LYMPHS 23.2 12.30 - 39.70 % [facility] MONOS 8.8 4.10 - 12.80 % [facility] EOS 1.6 0 - 7.2 % [facility] BASOS 0.7 0 - 2.80 % [facility] Granulocytes, immature (%) 0.3 0.0 - 0.9 % [facility] ABSOLUTE NEUTS 4.39 1.40 - 7.70 K/uL [facility] ABSOLUTE LYMPHS 1.56 0.60 - 3.20 K/uL [facility] ABSOLUTE MONOS 0.59 0.11 - 0.59 K/uL [facility] ABSOLUTE EOS 0.11 0.01 - 0.50 K/uL [facility] ABSOLUTE BASOS 0.05 0.00 - 0.08 K/uL [facility] Granulocytes, immature 0.02 0.00 - 0.05 K/uL [facility] Blood 09/09/2018 2:23 PM EDT 09/09/2018 2:27 PM EDT Emilie Hunt MD LAB BLOOD ORDERABLES Final Resu lt Performing Organization Address [facility]/ZIP Co de Phone Number [address] [address] * C-Reactive Protein (09/09/2018 2:23 PM EDT) C REACTIVE PROTEIN 2.6 0.0 - 4.0 mg/L [facility] Blood 09/09/2018 2:23 PM EDT 09/09/2018 2:27 PM EDT Emilie Hunt MD LAB BLOOD ORDERABLES Final Resu lt Performing Organization Address [facility]/ZIP Co de Phone Number [address] [address] documented in this encounter Visit Diagnoses Diagnosis Inflammatory bowel disease- Primary Other and unspecified noninfectious gastroenteritis and colitis documented in this encounter Additional Health Concerns Infection Onset Date Last Indicated Resolved Time CoV-Risk 10/23/2021 10/23/2021 11/02/2021 1:24 AM EST CoV-Exposed Comment:Recent close contact documented in the COVID-19 PCR/PRO order 10/23/2021 10/23/2021 11/07/2021 1:[address] CoV-Risk 12/24/2021 12/25/2021 01/04/2022 1:23 AM EST COVID-19 06/07/2024 06/07/2024 06/28/2024 1:21 AM EDT Assessment Noted Time PHQ-2 Depression Total Score: 4 04/22/20 11:39 AM EDT documented as of this encounter Care Teams Invertebrate Paleontologist Relationship Specialty Start Date End Date Allison Arce FNP [address] [place] [address] PCP - General 12/09/17 Valdez Lau MD [address] [place] [address] Historical LMR Provider 09/01/17 12/06/18 Elvira Vazquez MD [address] [place] [address] Historical LMR Provider 09/01/1712/06 Gloria Saavedra MD [address] [place] [address] Historical LMR Provider 09/01/17 12/06/18 Brandon Lei MD [address] [place] [address] Historical LMR Provider 09/01/1712/06 Flavia Doyle MD [address] [facility], 2nd [place] [address] [email or web address] Historical LMR Provider 09/01/1712/06 Miguel Hampton MD [address] [facility] [place] [address] Historical LMR Provider 09/01/17 Chris Deleon MD [address] [facility], [address] [place] [address] Historical LMR Provider 09/01/17 12/06/18 Regan Dyer MD Historical LMR Provider 09/01/17 12/06/18 Allison Arce FNP 10 [place] [address] Historical LMR Provider 09/01/17 Rubia Dutta DO [address] [place] [address] [email or web address] Family Medicine 12/07/18 08/21/21 Varinder Rocha NP [address] [facility] [address] [place] [address] Psychiatrist 07/22/22 12/07/23 Velma Mcmahon MSW 10 [place], [place] Machine Mover 10/06/23 Michelle Morales 10 [place], [place] 08/03/24 Aditya Garcia Machine Mover Student 11/1/22 3/26/2 5 documented as of this encounter Additional Source Comments The information contained in this document represents components of the legal health record. It is not the complete legal health record.[facility]
--- OUTSIDE RECORDS SUMMARY | 2025-07-20 16:47 | XMS_ITS | Encounter Summary ---
Author Organization [facility] Address [address] [place] [address] Phone Care Team Providers Care Radio Artist Name Role Phone Starlb Allison Purcellah TO Primary Care Provide r Varinder Rocha WINCH TRUCK OPERATOR Unavailable [phone] Velma Mcmahon HOOF AND SHOE INSPECTOR Unavailable Unavailable Michelle Morales Unavailable Unavailable Encounter Details Date Type Department Care Team (Late st Contact Info) Description 09/11/2023 Procedure Pass [facility], Ct Scan - [address] [address] Social History Tobacco Use Types Packs/Day Years [...] high school, GED, job training, learning the Rwandan language, technical skills, or developing parenting skills)? [...] PM EDT documented as of this encounter Functional Status * Calculated C-SSRS Risk Score (Lifetime/Recent) Answer Date of Assessment Author No Risk Indicated 09/11/2023 7:20 PM EDT Reyna Evans RN * Churchill Suicide Severity Rating Scale (Screener/Recent Self-Report) Question Answer Date of Assessment Author 1. Wish to be (Past 1 Month) No 023 7:20 PM EDT Reyna Evans, LAURA 2. Non-Specific Active Suici shelton Thoughts (Past 1 Month) No 09/11/2023 7:20 PM EDT Jerome Evans RN 6. Suicidal Behavior (Lifetime) No 7:20 PM EDT Reyna Evans, LAURA documented as of this encounter Plan of Treatment Upcoming Encounters Date Type Department Care Team (Late st Contact Info) Description 10/21/2025 2:00 PM EST Office Visit [facility] [address] [place] [address] Allison Arce FNP [address] [place] [address] [email or web address] 11/30/2025 1:00 PM EST Office Visit [facility] [address] [place] [address] 3rd Floor, [address] [place] [address] Coleman Mcginnis MD [address] [place] [address] documented as of this encounter Visit Diagnoses Not on filedocumented in this encounter Additional Health Concerns Infection Onset Date Last Indicated Resolved Time COVID-19 06/07/2024 06/07/2024 06/28/2024 1:21 AM EDT Assessment Noted Time PHQ-9 Depression Total Score: 12 021 10:35 AM EDT PHQ-2 Depression Total Score: 2 08/13/20 22 5:17 PM EDT documented as of this encounter Care Teams Radio Artist Relationship Specialty Start Date End Date Allison Arce FNP [address] [place] [address] [email or web address] PCP - General 12/09/17 Varinder Rocha NP [address] [place] [address] Psychiatrist 07/22/22 12/07/23 Velma Mcmahon MSW [address] [place], [place] Adult Probation Officer 10/06/23 Michelle Morales [address] [place], [place] 08/03/24 Aditya Garcia Adult Probation Officer Student 09/17/22 5 documented as of this encounter Additional Source Comments The information contained in this document represents components of the legal health record. It is not the complete legal health record.[facility]
--- OUTSIDE RECORDS SUMMARY | 2025-07-20 16:47 | XMS_ITS | Encounter Summary ---
Author Organization [facility] Address [address] [place] [address] Phone Care Team Providers Care Quality Improvement Coordinator Name Role Phone Allison Arce Sonya OVERCASTER Primary Care Provide r Velma Mcmahon GUEST SERVICES OFFICER Unavailable Unavailable Michelle Morales Unavailable Unavailable Encounter Details Date Type Department Care Team (Late st Contact Info) Description 12/22/2023 Telephone [facility] 10 [place], [place] [phone] Lalitha Sommers, RN 10 [place], [place] Social History Tobacco Use Types Packs/Day Years [...] high school, GED, job training, learning the Italian language, technical skills, or developing parenting skills)? [...] Description 10/21/2025 2:00 PM EST Office Visit [address] [phone] Allison Arce FNP 10 [place] [address] 11/30/2025 1:00 PM EST Office Visit [facility] [address] [facility] 3rd Floor, [address] [place] [address] Coleman Mcginnis MD [address] [place] [address] documented as of this encounter Visit Diagnoses Not on filedocumented in this encounter Additional Health Concerns Infection Onset Date Last Indicated Resolved Time COVID-19 06/07/2024 06/07/2024 06/28/2024 1:21 AM EDT Assessment Noted Time PHQ-9 Depression Total Score: 12 021 10:35 AM EDT PHQ-2 Depression Total Score: 2 08/13/20 22 5:17 PM EDT documented as of this encounter Care Teams Quality Improvement Coordinator Relationship Specialty Start Date End Date Allison Arce FNP [address] [place] [address] PCP - General 12/09/17 Velma Mcmahon MSW [address] [place] [address] Criminal Investigator 10/06/23 Michelle Morales [address] [place] [address] 08/03/24 Aditya Garcia Criminal Investigator Student 09/17/22 5 documented as of this encounter Additional Source Comments The information contained in this document represents components of the legal health record. It is not the complete legal health record.[facility]
--- OUTSIDE RECORDS SUMMARY | 2025-07-20 16:47 | XMS_ITS | Encounter Summary ---
Author Organization [facility] Address [facility] access hospital [facility] [address] [address] Phone Care Team Providers Care Gold Leaf Laborer Name Role Phone Allison Arce Primary Care Provide r Varinder Rocha WALL COVERING INSTALLER Unavailable [phone] Velma Mcmahon FRUIT PRESERVER Unavailable Unavailable Michelle Morales Unavailable Unavailable Reason for Referral * Physical Therapy (Routine) - Closed Specialty Diagnoses / Procedures Referred By Yogesh anderson Referred To Contact Physical Therapy Diagnoses Encounter for rehabilitation Rommel Smith NP Phone: tel: fax: [email or web address] [facility] [address] [place] [address] Phone: tel: Referral ID Status Reason Start Date Expiration Date Visits Re quested Visits Authorized [id number] Closed 03/24/2023 03/23/2024 99 99 Encounter Details Date Type Department Care Team (Latest Contact Info) Description 02/07/2023 Transcribe Orders [facility] [address] [place] [address] Rommel Smith NP [address] [place] [address] [email or web address] Encounter for rehabilitation (Primary Dx) Social History Tobacco Use Types [...] high school, GED, job training, learning the Ivorian language, technical skills, or developing parenting skills)? [...] is your housing situation today? I have bk sing 08/13/2022 How many times have you [...] Description 10/21/2025 2:00 PM EST Office Visit [address] [phone] Allison Arce FNP [address] [place] [address] 11/30/2025 1:00 PM EST Office Visit [facility] [address] 3rd Floor, [address] [place] [address] Coleman Mcginnis MD [address] [place] [address] Scheduled Referrals Name Type Priority Associated Diagnoses Orde r Schedule Ambulatory referral to [facility] Physical Therapy Outpatient Referral Routine Encounter for rehabilitation Ordered: 02/07/2023 documented as of this encounter Visit Diagnoses Diagnosis Encounter for rehabilitation- Primary documented in this encounter Additional Health Concerns Infection Onset Date Last Indicated Resolved Time COVID-19 06/07/2024 06/07/2024 06/28/2024 1:21 AM EDT Assessment Noted Time PHQ-9 Depression Total Score: 12 021 10:35 AM EDT PHQ-2 Depression Total Score: 2 08/13/20 22 5:17 PM EDT documented as of this encounter Care Teams Gold Leaf Laborer Relationship Specialty Start Date End Date Allison Arce FNP [address] [place] [address] PCP - General 12/09/17 Varinder Rocha NP [address] [place] [address] [address] [place] [address] Psychiatrist 07/22/22 12/07/23 Velma Mcmahon MSW 10 [place], [place] Couture Dressmaker 10/06/23 Michelle Morales 10 [place], [place] 08/03/24 Aditya Garcia Couture Dressmaker Student 09/17/22 3/ 5 documented as of this encounter Additional Source Comments The information contained in this document represents components of the legal health record. It is not the complete legal health record.[facility]
--- OUTSIDE RECORDS SUMMARY | 2025-07-20 16:48 | XMS_ITS | Encounter Summary ---
Author Organization [facility] Address [address] [facility] [address] [place] [address] Phone Care Team Providers Care Log Handler Name Role Phone Allison Arce RUBBER STAMP DIE INSPECTOR Primary Care Provide r Varinder Rcoha RESOURCE TEACHER Unavailable Velma Mcmahon Unavailable Unavailable Michelle Morales Unavailable Unavailable Encounter Details Date Type Department Care Team (Late st Contact Info) Description 09/15/2023 Telephone [facility] [address] [place], [place] [phone] Allison Arce FNP 10 [place], [place] [phone] [email or web address] Social History Tobacco Use Types Packs/Day Years [...] high school, GED, job training, learning the Armenian language, technical skills, or developing parenting skills)? [...] Description 10/21/2025 2:00 PM EST Office Visit [address] [phone] Allison Arce FNP [address] [place] [address] 11/30/2025 1:00 PM EST Office Visit [facility] [address] 3rd Floor, [address] [place] [address] Coleman Mcginnis MD [address] [place] [address] documented as of this encounter Visit Diagnoses Not on filedocumented in this encounter Additional Health Concerns Infection Onset Date Last Indicated Resolved Time COVID-19 06/07/2024 06/07/2024 06/28/2024 1:21 AM EDT Assessment Noted Time PHQ-9 Depression Total Score: 12 021 10:35 AM EDT PHQ-2 Depression Total Score: 2 08/13/20 22 5:17 PM EDT documented as of this encounter Care Teams Log Handler Relationship Specialty Start Date End Date Allison Arce FNP [address] [place] [address] PCP - General 12/09/17 Varinder Rocha NP 10 [facility] 3 [place] [address] Psychiatrist 07/22/22 12/07/23 Velma Mcmahon MSW 10 [place], [place] Electrician Supervisor 10/06/23 Michelle Morales 10 [place], [place] 08/03/24 Aditya Garcia Electrician Supervisor Student 09/17/22 5 documented as of this encounter Additional Source Comments The information contained in this document represents components of the legal health record. It is not the complete legal health record.[facility]
--- OUTSIDE RECORDS SUMMARY | 2025-07-20 16:48 | XMS_ITS | Encounter Summary ---
Author Organization [facility] Address [address] [facility] [address] [place] [address] Phone Care Team Providers Care Veterinary Technician Assistant Name Role Phone Claude Allison Purcellah HOSE TESTER Primary Care Provide r Varinder Rocha LYRIC WRITER Unavailable [phone] Velma Mcmahon HEAD PACKAGER Unavailable Unavailable Michelle Morales Unavailable Unavailable Encounter Details Date Type Department Care Team (Late st Contact Info) Description 05/08/2022 Procedure Pass [place] Admitting Dept - Virtual Department [address] [place] [address] Social History Tobacco Use Types Packs/Day Years Used Date Smoking Tobacco: Never Smokeless Tobacco: Never Alcohol Use Standard Drinks/Week Comments Yes 3 (1 standard drink = 0.6 oz pur e alcohol) Child or Family Care Answer Date Record ed Do you have problems with on e of the following making it difficult for you to work, study, or receive health care? No 06/19/2021 Education Answer Date Recorded Are you interested in help w ith more adult education (for example, completing high school, GED, job training, learning the Angolan language, technical skills, or developing parenting skills)? No 06/19/2021 Food Answer Date Recorded Within the past 6 months we worried whether our food would run out before we got money to buy more. Sometimes True 021 Within the past 6 months the food we bought just didn't last and we didn't have enough money to get more. Sometimes True 01/2021 Paying for Meds Answer Date Recorded Do you have trouble paying for medicines? Yes 06/19/2021 Paying Utility Bills Answer Date Record ed Do you have trouble paying your heating or elect ricity bill? No 06/19/2021 Transportation Answer Date Recorded Has the lack of transportati on kept you from medical appointments or from getting medications? Yes 06/19/2021 Comments No Sex and Gender Information Value [...] Description 10/21/2025 2:00 PM EST Office Visit [address] [phone] Allison Arce FNP [address] [place] [address] [phone] 11/30/2025 1:00 PM EST Office Visit [facility] [address] [place] [address] [address]rd Floor, [address] [place] [address] Coleman Mcginnis MD [address] [place] [address] documented as of this encounter Visit Diagnoses Not on filedocumented in this encounter Additional Health Concerns Infection Onset Date Last Indicated Resolved Time COVID-19 06/07/2024 06/07/2024 06/28/2024 1:21 AM EDT Assessment Noted Time PHQ-9 Depression Total Score: 12 021 10:35 AM EDT PHQ-2 Depression Total Score: 3 06/19/20 21 10:35 AM EDT documented as of this encounter Care Teams Veterinary Technician Assistant Relationship Specialty Start Date End Date Allison Arce FNP [address] [place] [address] [phone] PCP - General 12/09/17 Varinder Rocha NP [address] [place] [address] 3 [place] [address] Psychiatrist 07/22/22 12/07/23 Velma Mcmahon MSW [address] [place] [address] Supervisory Forester 10/06/23 Michelle Morales [address] [place] [address] 08/03/24 Aditya Garcia Supervisory Forester Student 09/17/22 5 documented as of this encounter Additional Source Comments The information contained in this document represents components of the legal health record. It is not the complete legal health record.[facility]
== END 2025-07-20 15:13 | disposition home or self-care (01) ==
LOC: HO.HGI 14:31
PROVIDERS: PCP Nurse Practitioner Family; Visit Provider Nurse Practitioner
DX: R10.10 Upper abdominal pain, unspecified (principal); K50.90 Crohn's disease, unspecified, without complications
CPT/HCPCS: 99214

== ENCOUNTER → 2025-07-20 14:30 | Outpatient (BNVA) | payer MEDICARE, MEDICAID, SELFPAY | PROVIDERS: PCP Nurse Practitioner Family; Visit Provider Nurse Practitioner | DX: K50.90 Crohn's disease, unspecified, without complications (principal); R10.10 Upper abdominal pain, unspecified | CPT/HCPCS: 99212 ==

== ENCOUNTER 2025-10-05 12:50 | Outpatient (REF) | payer MEDICARE, MEDICAID, SELFPAY ==
--- NOTE | ~2025-10-05 | US_ITS ---
EXAMINATION: US ABDOMEN COMPLETE CLINICAL INFORMATION: R10.10 - Upper abdominal pain, unspecified. COMPARISON: Abdomen/pelvis CT on May 14, 2018 TECHNIQUE: Real-time imaging of the abdominal viscera. FINDINGS: PANCREAS: Visualized portions are unremarkable. ABDOMINAL AORTA: The proximal, mid, and distal segments are normal in caliber. INFERIOR VENA CAVA: Visualized portions are normal. LIVER: The liver is normal in size. The liver contour is normal. Parenchymal echogenicity is normal. There is a subtle hypoechoic area in the left hepatic lobe measuring 1.1 x 0.9 x 0.9 cm. There is no intrahepatic biliary duct dilatation seen. GALLBLADDER: The gallbladder is physiologically distended without evidence of stones, sludge, polyps, wall thickening or pericholecystic fluid. COMMON BILE DUCT: Normal in caliber measuring 0.2 cm in diameter. RIGHT KIDNEY: No hydronephrosis. No renal calculi or focal parenchymal lesions. The kidney measures 10.4 cm in maximum dimension. LEFT KIDNEY: No hydronephrosis. No renal calculi or focal parenchymal lesions. The kidney measures 9.6 cm in maximum dimension. SPLEEN: The spleen measures 6.9 cm in maximum dimension. FREE FLUID: None. US/US abdomen complete IMPRESSION: 1. No acute sonographic findings. 2. Subtle hypoechoic area in the left hepatic lobe measures 1.1 x 0.9 x 0.9 cm. MR liver protocol is recommended for further evaluation. Electronically signed by: Melquiades Wilson MD 10/05/2025 01:44 PM [facility]
--- OUTSIDE RECORDS SUMMARY | 2025-10-06 00:43 | XMS_ITS | Encounter Summary ---
Author Organization [facility] Address [address] [place] [address] Phone Care Team Providers Care Clip And Hanger Attacher Name Role Phone Staralixjarad Allison Hassan BICYCLE ASSEMBLER Primary Care Provide r Varinder Rocha DIORAMA MODEL MAKER Unavailable [phone] Katy Mcmahon LABORATORY TECHNOLOGY TEACHER Unavailable abilio [email or web address] Michelle Morales Unavailable Unavailable Reason for Referral * Physical Therapy (Routine) - Closed Specialty Diagnoses / Procedures Referred By Yogesh anderson Referred To Contact Physical Therapy Diagnoses Encounter for rehabilitation Rommel Smith NP Phone: tel: fax: [email or web address] [email or web address] [address] [place] [address] Phone: tel: Referral ID Status Reason Start Date Expiration Date Visits Re quested Visits Authorized [id number] Closed 03/24/2023 03/23/2024 99 99 Encounter Details Date Type Department Care Team (Latest Contact Info) Description 02/07/2023 Transcribe Orders [facility] [address] [place] [address] Rommel Smith NP [address] [place] [address] [email or web address] Encounter for rehabilitation (Primary Dx) Social History [...] high school, GED, job training, learning the Qatari language, technical skills, or developing parenting skills)? [...] Care Team (Late st Contact Info) Description 11/30/2025 1:00 PM EST Office Visit [facility] [address] Floor, [address] [place] [address] Coleman Mcginnis MD [address] [place] [address] 12/07/2025 2:00 PM EST [facility] Visit [facility] [address] [place] [address] Allison Arce FNP [address] [place] [address] Scheduled Referrals Name Type Priority Associated Diagnoses Orde r Schedule Ambulatory referral to [facility] Physical Therapy Outpatient Referral Routine Encounter [...] documented as of this encounter Care Teams Clip And Hanger Attacher Relationship Specialty Start Date End Date Allison Arce FNP [address] [place] [address] PCP - General 12/09/17 Varinder Rocha NP [address] [place] [address] Psychiatrist 07/22/22 12/07/23 Katy Mcmahon MSW [address] [place] [address] Neuropsychology Service Director 10/06/23 Michelle Morales [address] [place] [address] 08/03/24 Aditya Garcia Neuropsychology Service Director Student 09/17/22 5 documented as of this encounter Additional Source Comments The information contained in this document represents components of the legal health record. It is not the complete legal health record.[facility]
--- OUTSIDE RECORDS SUMMARY | 2025-10-06 00:43 | XMS_ITS | Encounter Summary ---
Author Organization [facility] Address [facility] [address] [place] [address] Phone Care Team Providers Care Wood Treating Inspector Name Role Phone Allison Arce PACKAGING OPERATOR Primary Care Provide r Varinder Rocha DEVELOPMENT REP Unavailable [phone] Katy Mcmahon DIGITIZER Unavailable abilio Michelle Morales Unavailable Unavailable Encounter Details Date Type Department Care Team (Late st Contact Info) Description 09/05/2022 Telephone [facility] [address] [place], [place] [phone] Allison Arce FNP [address] [place], [place] [phone] [email or web address] Social History Tobacco Use Types Packs/Day Years [...] high school, GED, job training, learning the Romanian language, technical skills, or developing parenting skills)? No 08/13/2022 Food Answer Date Recorded Within the past 6 months we worried whether our food would run out before we got money to buy more. Sometimes True 09/27/2 022 Within the past 6 months the [...] Description 11/30/2025 1:00 PM EST Office Visit [facility] [address] [place] [address] 3rd Floor, [address] [place] [address] Coleman Mcginnis MD [address] [place] [address] 12/07/2025 2:00 PM EST Office Visit [facility] [address] [place] [address] Allison Arce FNP [address] [place], [place] [phone] documented as of this encounter Visit Diagnoses Not on filedocumented in this encounter Additional Health Concerns Infection Onset Date Last Indicated Resolved Time COVID-19 06/07/2024 06/07/2024 06/28/2024 1:21 AM EDT Assessment Noted Time PHQ-9 Depression Total Score: 12 021 10:35 AM EDT PHQ-2 Depression Total Score: 2 08/13/20 22 5:17 PM EDT documented as of this encounter Care Teams Wood Treating Inspector Relationship Specialty Start Date End Date Allison Arce FNP [address] [place] [address] [email or web address] PCP - General 12/09/17 Varinder Rocha NP [address] [place] [address] Psychiatrist 07/22/22 12/07/23 Katy Mcmahon MSW [address] [place] [address] [email or web address] Board Hammer Operator 10/06/23 Michelle Morales [address] [place] [address] 08/03/24 Aditya Garcia Board Hammer Operator Student 09/17/22 5 documented as of this encounter Additional Source Comments The information contained in this document represents components of the legal health record. It is not the complete legal health record.[facility]
--- OUTSIDE RECORDS SUMMARY | 2025-10-06 00:43 | XMS_ITS | Encounter Summary ---
Author Organization [facility] Address [address] [place] [address] Phone Care Team Providers Care Complaint Supervisor Name Role Phone Starlb Allison Purcellah CLASSROOM INSTRUCTIONAL AIDE Primary Care Provide r Katy Mcmahon FURNACE RELINER Unavailable abilio Michelle Morales Unavailable Unavailable Encounter Details Date Type Department Care Team (Late st Contact Info) Description 12/22/2023 Telephone [facility] [place], [place] [phone] Lalitha Sommers, RN 10 [place] [address] Social History Tobacco Use Types Packs/Day Years [...] high school, GED, job training, learning the Turkish language, technical skills, or developing parenting skills)? [...] Description 11/30/2025 1:00 PM EST Office Visit [facility] [address] [place] [address] 3rd Floor, [address] [place] [address] Coleman Mcginnis MD [address] [place] [address] 12/07/2025 2:00 PM EST Office Visit [facility] [address] [place] [address] Allison Arce FNP [address] [place] [address] documented as of this encounter Visit Diagnoses Not on filedocumented in this encounter Additional Health Concerns Infection Onset Date Last Indicated Resolved Time COVID-19 06/07/2024 06/07/2024 06/28/2024 1:21 AM EDT Assessment Noted Time PHQ-9 Depression Total Score: 12 021 10:35 AM EDT PHQ-2 Depression Total Score: 2 08/13/20 22 5:17 PM EDT documented as of this encounter Care Teams Complaint Supervisor Relationship Specialty Start Date End Date Allison Arce FNP [address] [place] [address] PCP - General 12/09/17 Katy Mcmahon MSW [address] [place] [address] Dry Cleaning Counter Clerk 10/06/23 Michelle Morales [address] [place] [address] 08/03/24 Aditya Garcia Dry Cleaning Counter Clerk Student 09/17/22 5 documented as of this encounter Additional Source Comments The information contained in this document represents components of the legal health record. It is not the complete legal health record.[facility]
--- OUTSIDE RECORDS SUMMARY | 2025-10-06 00:43 | XMS_ITS | Clinical Summary ---
Author [facility] Address [facility] [address] [place] [address] Phone Care Team Providers Care Top And Trim Worker Name Role Phone JudyjaradAllison SAFETY PHYSICIAN Primary Care Provide r Ktay Mcmahon HULL LINE CREW MEMBER Unavailable abilio [email or web address] Michelle Morales Unavailable Unavailable Allergies Active Allergy Reactions Criticality Noted Date Comments Clindamycin Hcl Rash Low 11/27/2017 Egg 08/14/2022 Penicillins Rash Low 11/27/2017 Sulfa (Sulfonamide Antibiotics) Rash Low 11/17 Medications cholecalciferol (VITAMIN D3) 1,000 unit tablet Take 2,000 Units by mouth daily. Active pantoprazole (PROTONIX) 20 MG tablet Take 20 mg by mouth 2 (two) times a day. Active blood pressure monitor KitIndications:Orth ostatic hypotension,Postura l lightheadedness 1 each by Miscellaneous route 2 (two) times a day. 1 each 04/04/20 21 Active needle, disp, 25 gauge (BD REGULAR BEVEL NEEDLES) 25 gauge x 5/8 Ndle 1 each by Miscellaneous route every 7 days. 25 each 1 08/06/20 22 Active needle, disp, 18 G (BD REGULAR BEVEL NEEDLES) 18 gauge x 1 NdleIndications:Gen marco antonio dysphoria in adult Weekly draw needle May substitute 1.5 needle if 1 needle not available. 12 each 3 11/03/20 23 Active needle, disp, 25 gauge 25 gauge x 1 1/2 NdleIndications:Gen marco antonio dysphoria in adult Inject 1 each into the muscle every 7 days. For intramuscular injection 12 each 3 11/03/20 23 Active syringe, disposable, 1 mL Syrg 1 each by Miscellaneous route every 7 days. Use for injection of testosterone, with 25g needles 12 each 3 11/03/20 23 Active clonazePAM (KLONOPIN) 1 MG tablet Take 1 tablet by mouth 2 (two) times a day. 09/20/20 24 Active traZODone (DESYREL) 50 MG tablet take 1 tablet by mouth everyday at bedtime 07/27/20 24 Active penciclovir (DENAVIR) 1 % creamIndications:He rpes labialis APPLY TOPICALLY 2 (TWO) TIMES A DAY. 90 DAY SUPPLY 60 g 3 10/22/20 24 Active predniSONE (DELTASONE) 20 MG tablet 25 mg. 10/19/20 24 Active cetirizine (ZYRTEC) 10 MG tabletIndications:A llergies TAKE 1 TABLET BY MOUTH EVERY DAY 90 tablet 3 01/27/20 25 Active albuterol 90 mcg/actuation inhaler USE [...] nausea. 28 tablet 2 05/30/20 25 Active amLODIPine (NORVASC) 2.5 MG tablet TAKE 1 TABLET BY MOUTH EVERY DAY 90 tablet 3 07/05/20 25 Active evolocumab (REPATHA SURECLICK) 140 mg/mL PnIj subcutaneous pen injector Inject 1 mL (140 mg total) under the skin every 14 (fourteen) days. 6 mL 3 07/25/20 25 Active metoprolol succinate (TOPROL-XL) 50 MG 24 hr tablet TAKE 1 TABLET (50 MG TOTAL) BY MOUTH DAILY. TAKE THIS IN ADDITION TO THE AMLODIPINE. 90 tablet 1 08/23/20 25 026 Active testosterone cypionate (DEPO-TESTOTERONE) 200 mg/mL injectionIndication s:Gender dysphoria in adult INJECT 0.25ML INTO THE SKIN ONCE WEEKLY 4 mL 5 09/05/20 25 Active Active Problems Patient Care Coordination No te Formatting of this note migh t be different from the original. Houston Galindo presents in session today as prepared and friendly. The goal of meeting today was to establish contact and discuss Houston's needs regarding his certificate change status, some issues he's had with curtain cutter hand re certificate, and some questions he had regarding insurance, medicare, and [facility]. The plan going forward is for thx [...] colon cancer 04/17/2023 Overview (07/21/2023): colonoscopy, repeat [id number] as per GI Recurrent herpes labialis 03/12/2023 [...] absorb nutrients. We discussed meeting with a vigoureux printer to help him find cholesterol lowering ways to increase his calorie count. He will work on his diet and follow-up in 6 months. Assessment & Plan (12/27/2021 8:53 AM EST): Pt declines statin Dec 2021 Hearing loss 04/28/2019 PTSD (post-traumatic stress disorder) 04/22/2018 Overview (04/22/2018): Sees Vale [facility] at [facility] Anxiety 04/22/2018 IBS (irritable colon syndrome) 04/22/2018 Overview (04/22/2018): initially diagnosed with UC on colonoscopy but has had multiple unremarkable colonoscopies since. Sees Dr. Emilie Nash, GI in [facility] 04/22/2018 Overview (04/22/2018): S/p double mastectomy (2009, revision 2017), s/p BSO-Hyst (2017) Ulcerative colitis 10/23/2017 Right carpal tunnel syndrome Hallux rigidus of left foot Resolved Problems Problem Noted Date Diagnosed Date Resolved Date C. difficile colitis 09/16/2023 025 Overview (09/16/2023): Diagnosed 08/2023 via [facility] at [facility]. Started on abx Elevated BP without diagnosis of hypertension 06/19/20 21 01/31/2022 Basal cell carcinoma (BCC) 04/28/2019 0 04/28/2019 Overview (04/28/2019): Hx of Mohs procedure to nose Encounters Date Type Department Care Team Description 09/03/2025 [facility]ill [facility] [address] [place] [address] Delores Rebolledo, WILLIAM Medication Refill 08/22/2025 Refill [facility] [address] [place] [address] Allison Arce, TO Medication Refill from Last 3 Months Immunizations [...] high school, GED, job training, learning the Zambian language, technical skills, or developing parenting skills)? [...] housing situation today? I have kb medina 06/28/2025 How many times have you move [...] Intimate Partner Violence Answer Date R ecorded Denied Basic Needs Not on file 06/28/2025 In the past 12 months have y ou been in a relationship with a person who hurts, threatens, or tries to control you? No 06/28/2025 Worried food would run out Not on file 06/28 In the past 12 months have y [...] Description 11/30/2025 1:00 PM EST Office Visit [facility] [address] [place] [address] 3rd Floor, [address] [place] [address] Coleman Mcginnis MD [address] [place] [address] 12/07/2025 2:00 PM EST Office Visit [address] [phone] Allison Arce FNP [address] [place] [address] [phone] Health Maintenance Due Date Last Done Comments HIV ONE-TIME SCREENING (18-65 YEARS) 1978 COLOGUARD 2005 FIT TEST 2005 FOBT 2005 SIGMOIDOSCOPY 2005 VIRTUAL COLONOSCOPY 2005 RSV VACCINE (1 - Risk 50-74 years 1-dose series) 2010 ZOSTER VACCINES (1 of 2) 2010 PNEUMOCOCCAL VACCINES (50+ years) (2 of 2 - PCV) 10/10/2015 10/10/2014 Adult Td,Tdap Booster 02/19/2023 02/19/2013 DEPRESSION SCREENING 08/13/2023 08/13/2022, 06/19/20 21 INFLUENZA VACCINE (#1) 2025 , 08/26/2023, 08/19/2022, Additional history exists COVID-19 VACCINE ( season) 2025 11/19/2024, 08/26/2023, 03/21/2023, Additional history exists BLOOD PRESSURE 11/17/2025 05/17/2025 LIPID PANEL 01/12/2030 01/12/2025, 061 01/2024, 06/19/2021, Additional history exists COLONOSCOPY 04/03/2033 04/03/2023, 07/0 07/2020, 06/02/2018 COLORECTAL CANCER SCREENING 04/03/2033 HEPATITIS C SCREENING Completed 10/03/2016 SMOKING STATUS SCREENING (Once After 26 Yrs) [...] this topic Medical Devices Implanted Type Area Trash Collector Truck Driver Device Identifier Shelf Expiration Date Model / Serial / Lot Plate Screw Locking R3con 2.7x18mm - [id number] Implanted:Qty: 1 on 05/08/2022 by Aj Wen MD at [facility] Left: Foot [employer] [id number] / / Plate Mtp 5 Degree Short-Short Left 2-Hole Distal - [id number] Implanted:Qty: 1 on 05/08/2022 by Aj Wen MD at [facility] Left: Foot [employer] [id number] / / Plate Screw Locking R3con 2.7x16mm - [id number] Implanted:Qty: 2 on 05/08/2022 by Aj Wen MD at [facility] Left: Foot [employer] [id number] / / Plate Screw Non Locking R3con 2.7x12mm - [id number] Implanted:Qty: 1 on 05/08/2022 by Aj Wen MD at [facility] Left: Foot [employer] [id number] 2 / / Plate Screw Locking R3con 2.7x14mm - [id number] Implanted:Qty: 1 on 05/08/2022 by Aj Wen MD at [facility] Left: Foot [employer] [id number] / / Screw Mini Monster Cannulated Short Threaded Headed 3x24mm - [id number] Implanted:Qty: 1 on 05/08/2022 by Aj Wen MD at [facility] Left: Foot [employer] [id number] / / Explanted Type Area Trash Collector Truck Driver Device Identifier Shelf Expiration Date Model / Serial / Lot K-Wire Single Ended 1.9i040wm Trocar Tip Smooth - [id number] Explanted:Qty: 1 on 05/08/2022 by Aj Wen MD at [facility] Left: Foot [employer] [id number] 15 / / Countersink Headed 3.5mm - [id number] Explanted:Qty: 1 on 05/08/2022 by Aj Wen MD at [facility] Left: Foot [employer] [id number] / / K-Wire Bone [id number] Smooth Single Ended - [id number] Explanted:Qty: 1 on 05/08/2022 by Aj Wen MD at [facility] Left: Foot [employer] [id number] / / Procedures Procedure Name Priority Date/Time Associated Diagnosis Comments LIPID PANEL Routine 01/12/2025 3:24 PM EST Mixed hyperlipidemia COLONOSCOPY FOR RESULT ENTRY ONLY Routine 04/03/2023 from Last 3 Months or Most Recently Relevant to Health Maintenance Results * (ABNORMAL) Lipid panel (01/12/2025 3:24 PM EST) HDL 73 mg/dL [facility] Comment: Interpretation <40 mg/dL: Low HDL cholesterol (major risk factor for CHD) Greater than or equal to 60 mg/dL: High HDL cholesterol ( negative risk factor for CHD) HDL - cholesterol is affected by a number of factors, e.g. smoking, excerise, hormones, sex and age. CHOLESTEROL 247(H) 0 - 240 mg/dL [facility] TRIGLYCERIDES 100 30 - 160 mg/dL [facility] LDL 154(H) 50 - 129 mg/dL [facility] Comment: LDL levels in terms of risk for coronary heart disease: <100 mg/dL: Optimal 100-129 mg/dL: Near or above optimal 130-159 mg/dL: Borderline high 160-189 mg/dL: High >190 mg/dL: Very High CARDIAC RISK RATIO 3.4 3.4 - 5.0 [facility] Blood 01/12/2025 3:24 PM EST 01/12/2025 3:27 PM EST us Coleman Mcginnis MD LAB BLOOD BKR ORDERABLES Claudia lopez Result [facility] [address] [place] [address] * COLONOSCOPY FOR RESULT ENTRY ONLY (04/03/2023) us Allison Arce SAFETY PHYSICIAN HEALTH MAINTENANCE Ed ited Result - Final from Last 3 Months or Most Recently Relevant to Health Maintenance Insurance MEDICARE PART A & B [facility] MEDICARE PART A & [place] [facility] [place] [facility] Advance Directives For more information, please contact: [phone] (9AM - 5PM Michelle/[place], Friday-Friday) * Full Code (Presumed) (Latest Code Status on File) Date Activated Date Inactivated Comments 01/13/2019 10:20 AM 01/13/2019 3:53 PM Care Teams Top And Trim Worker Relationship Specialty Start Date End Date Allison Arce FNP [address] [place] [address] PCP - General 12/09/17 Katy Mcmahon MSW [address] [place] [address] [email or web address] Thermal Intelligence Analyst 10/06/23 Michelle Morales [address] [place] [address] 08/03/24 Additional Source Comments The information contained in this document represents components of the legal health record. It is not the complete legal health record.[facility]
--- OUTSIDE RECORDS SUMMARY | 2025-10-06 00:43 | XMS_ITS | Encounter Summary ---
Author Organization [facility] Address [facility] [email or web address] [facility] [address] [place] [address] Phone Care Team Providers Care Cabbage Salter Name Role Phone Allison rAce GRAINER MACHINE Primary Care Provide r Rubia Barkley DO Unavailable [phone] Varinder Rocha BLOW MACHINE TENDER STARCH SPRAYING Unavailable [phone] Katy Mcmahon CONSULTING UTILITY FORESTER Unavailable abilio [email or web address] Michelle Morales Unavailable Unavailable Encounter Details Date Type Department Care Team (Late Contact Info) Description 01/13/2019 Procedure Pass [place] Admitting Dept - Virtual Department [address] [place] [address] Social History Tobacco Use Types Packs/Day Years [...] Department Care Team (Late Contact Info) Description 11/30/2025 1:00 PM EST Office Visit [facility] [address] [place] [address] 3rd Floor, [address] [place] [address] Coleman Mcginnis MD [address] [place] [address] 12/07/2025 2:00 PM EST [facility] Visit [facility] [address] [place] [address] Judyjarad Allison TO Hassan [address] [place], [place] [phone] documented as of this encounter Visit Diagnoses [...] documented as of this encounter Care Teams Cabbage Salter Relationship Specialty Start Date End Date Allison Arce FNP [address] [place] [address] PCP - General 12/09/17 Rubia Bark[place] DO [address] [place] [address] [email or web address] 12/07/18 08/21/21 Varinder Rocha NP [address] [place] [address] Psychiatrist 07/22/22 12/07/23 Katy Mcmahon MSW [address] [place] [address] [email or web address] Green Coffee Blender 10/06/23 Michelle Morales [address] [place] [address] 08/03/24 Aditya Garcia Green Coffee Blender Student 09/17/22 5 documented as of this encounter Additional Source Comments The information contained in this document represents components of the legal health record. It is not the complete legal health record.[facility]
--- OUTSIDE RECORDS SUMMARY | 2025-10-06 00:43 | XMS_ITS | Encounter Summary ---
Author Organization [facility] Address [address] [place] [address] Phone Care Team Providers Care Auto Mechanics Teacher Name Role Phone Allison Arce BOOSTER OPERATOR Primary Care Provide r Varinder Rocha RIVETING MACHINE OPERATOR Unavailable [phone] Katy Mcmahon DIALYSIS EQUIPMENT TECHNICIAN Unavailable abilio Michelle Morales Unavailable Unavailable Encounter Details Date Type Department Care Team (Late st Contact Info) Description 09/11/2023 Procedure Pass [facility], Ct Scan - [address] [address] Social History Tobacco Use Types Packs/Day Years [...] high school, GED, job training, learning the Malaysian language, technical skills, or developing parenting skills)? [...] Risk Indicated 09/11/2023 7:20 PM EDT Reyna Evans, LAURA * [place] Suicide Severity Rating Scale (Screener/Recent Self-Report) Question Answer Date of Assessment Author 1. Wish to be (Past 1 Month) No 023 7:20 PM EDT Tolan, Reyna, RN 2. Non-Specific Active Suici shelton Thoughts (Past 1 Month) No 09/11/2023 7:20 PM EDT Jerome Evans RN 6. Suicidal Behavior (Lifetime) No 7:20 PM EDT Reyna Evans, RN documented as of this encounter Plan of Treatment Upcoming Encounters Date Type Department Care Team (Late st Contact Info) Description 11/30/2025 1:00 PM EST Office Visit [facility] [address] [place] [address] 3rd Floor, [address] [place] [address] Coleman Mcginnis MD [address] [place] [address] 12/07/2025 2:00 PM EST Office Visit [facility] [address] [place], [place] [phone] Allison Arce FNP [address] [place] [address] [phone] documented as of this encounter Visit Diagnoses Not on filedocumented in this encounter Additional Health Concerns Infection Onset Date Last Indicated Resolved Time COVID-19 06/07/2024 06/07/2024 06/28/2024 1:21 AM EDT Assessment Noted Time PHQ-9 Depression Total Score: 12 06/19/ 021 10:35 AM EDT PHQ-2 Depression Total Score: 2 08/13/20 22 5:17 PM EDT documented as of this encounter Care Teams Auto Mechanics Teacher Relationship Specialty Start Date End Date Allison Arce FNP [address] [place] [address] [phone] [email or web address] PCP - General 12/09/17 Varinder Rocha NP [address] [place] [address] [phone] Psychiatrist 07/22/22 12/07/23 Katy Mcmahon MSW [address] [place] [address] [email or web address] Framing Mill Operator 10/06/23 Michelle Morales [address] [place] [address] 08/03/24 Aditya Garcia Framing Mill Operator Student 09/17/22 5 documented as of this encounter Additional Source Comments The information contained in this document represents components of the legal health record. It is not the complete legal health record.[facility]
--- OUTSIDE RECORDS SUMMARY | 2025-10-06 00:43 | XMS_ITS | Encounter Summary ---
Author Organization [facility] Address [address] [place] [address] Phone Care Team Providers Care Fabric Inspector Name Role Phone Claude Allison Sonya EXTRACTION SUPERVISOR Primary Care Provide r Katy Mcmahon BROWNFIELD REDEVELOPMENT SITE MANAGER Unavailable abilio [email or web address] Michelle Morales Unavailable Unavailable Encounter Details Date Type Department Care Team (Late st Contact Info) Description 07/02/2024 Procedure Pass Echo [facility] [place] [address] Social History Tobacco Use Types Packs/Day Years [...] high school, GED, job training, learning the Kyrgyz language, technical skills, or developing parenting skills)? [...] Description 11/30/2025 1:00 PM EST Office Visit [facility] [address] [place] [address] 3rd Floor, [address] [place], [place] [phone] Coleman Mcginnis MD [address] [place] [address] 12/07/2025 2:00 PM EST Office Visit [facility] 10 [facility] [place] [address] Allison Arce FNP [address] [place] [address] [email or web address] documented as of this encounter Visit Diagnoses Not on filedocumented in this encounter Additional Health Concerns Assessment Noted Time PHQ-9 Depression Total Score: 12 06/19/ 021 10:35 AM EDT PHQ-2 Depression Total Score: 2 08/13/20 22 5:17 PM EDT documented as of this encounter Care Teams Fabric Inspector Relationship Specialty Start Date End Date Allison Arce FNP [address] [place] [address] PCP - General 12/09/17 Katy Mcmahon MSW [address] [place] [address] [email or web address] Financial Institution Branch Manager 10/06/23 Michelle Morales [address] [place] [address] 08/03/24 Aditya Garcia Financial Institution Branch Manager Student 09/17/22 5 documented as of this encounter Additional Source Comments The information contained in this document represents components of the legal health record. It is not the complete legal health record.[facility]
--- OUTSIDE RECORDS SUMMARY | 2025-10-06 00:43 | XMS_ITS | Encounter Summary ---
Author Organization [facility] Address [address] [facility] [address] [place] [address] Phone Care Team Providers Care Wool Hat Flanger Name Role Phone Allison Arce JAVA MOBILE DEVELOPER Primary Care Provide r Varinder Rocha CONTINUOUS MINER OPERATOR HELPER Unavailable [phone] Katy Mcmahon COPPER TAPPER Unavailable abilio Michelle Morales Unavailable Unavailable Encounter Details Date Type Department Care Team (Late st Contact Info) Description 05/08/2022 Procedure Pass OR Admitting Dept - Virtual Department 30 [place] [address] Social History Tobacco Use Types Packs/Day Years [...] high school, GED, job training, learning the Irish language, technical skills, or developing parenting skills)? [...] Description 11/30/2025 1:00 PM EST Office Visit [facility] [address] [place] [address] 3rd Floor, [address] [place] [address] Coleman Mcginnis MD [address] [place] [address] 12/07/2025 2:00 PM EST Office Visit [facility] [address] [place] [address] [phone] Allison Arce FNP [address] [place] [address] documented as of this encounter Visit Diagnoses Not on filedocumented in this encounter Additional Health Concerns Infection Onset Date Last Indicated Resolved Time COVID-19 06/07/2024 06/07/2024 06/28/2024 1:21 AM EDT Assessment Noted Time PHQ-9 Depression Total Score: 12 021 10:35 AM EDT PHQ-2 Depression Total Score: 3 06/19/20 21 10:35 AM EDT documented as of this encounter Care Teams Wool Hat Flanger Relationship Specialty Start Date End Date Allison Arce FNP [address] [place] [address] PCP - General 12/09/17 Varinder Rocha NP [address] [place] [address] Psychiatrist 07/22/22 12/07/23 Katy Mcmahon, COPPER TAPPER [address] [place] [address] Slubber Tender 10/06/23 Michelle Morales [address] [place] [address] 08/03/24 Aditya Garcia Slubber Tender Student 09/17/22 5 documented as of this encounter Additional Source Comments The information contained in this document represents components of the legal health record. It is not the complete legal health record.[facility]
--- OUTSIDE RECORDS SUMMARY | 2025-10-06 00:43 | XMS_ITS | Encounter Summary ---
Author Organization [facility] Address [facility] [employer] [address] [address] Phone Care Team Providers Care Lithoplate Maker Name Role Phone Valdez Lau MD Unavailable Elvira Vazquez MD Unavailable [phone] Gloria Saavedra MD Unavailable Brandon Lei MD Unavailable Flavia Doyle MD Unavailable Miguel Hampton MD Unavailable [phone] Chris Deleon MD Unavailable Regan Dyer MD Unavailable [email or web address] Allison Rico Unavailable Allison Arce [facility] Primary Care Provide r Rubia Barkley DO Unavailable Varinder Rocha NP Unavailable [phone] Katy Mcmahon DEVELOPMENT ASSOCIATE Unavailable abilio Mcihelle Morales Unavailable Unavailable Encounter Details Date Type Department Care Team (Late st Contact Info) Description 09/09/2018 Transcribe Orders [facility] Phleb Main [address] [place], [place] [phone] Emilie Hunt MD [address] [place] [address] Dr [place] [phone] Inflammatory bowel disease (Primary Dx) Social History [...] Description 11/30/2025 1:00 PM EST Office Visit [facility] [address] [place] [address] 3rd Floor, [address] [place] [address] Coleman Mcginnis MD [address] [place] [address] 12/07/2025 2:00 PM EST Office Visit [address] [phone] Allison Arce FNP [address] [place], [place] [phone] documented as of this encounter Results * CBC and differential (09/09/2018 2:23 PM EDT) WBC 6.72 3.40 - 11.20 K/uL [facility] RBC 4.47 3.80 - 4.80 M/uL [facility] HGB 13.6 12.0 - 15.0 g/dL [facility] HCT 40.0 36.0 - 46.0 % [facility] PLT 255 130 - 400 K/uL [facility] MCV 89.5 79.0 - 98.0 fL [facility] MCH 30.4 27.0 - 34.8 pg [facility] MCHC 34.0 31.5 - 36.0 g/dL [facility] RDW 11.9 10.8 - 14.6 % [facility] MPV 10.4 9.4 - 12.4 [facility] NRBC 0.00 /100 WBCs [facility] ABSOLUTE NRBC 0.00 K/uL [facility] DIFF METHOD Auto [facility] NEUTS 65.4 45.30 - 77.70 % [facility] LYMPHS 23.2 12.30 - 39.70 % [facility] MONOS 8.8 4.10 - 12.80 % [facility] EOS 1.6 0 - 7.2 % [facility] BASOS 0.7 0 - 2.80 % [facility] Granulocytes, immature (%) 0.3 0.0 - 0.9 % [facility] ABSOLUTE NEUTS 4.39 1.40 - 7.70 K/uL [facility] ABSOLUTE LYMPHS 1.56 0.60 - 3.20 K/uL [facility] ABSOLUTE MONOS 0.59 0.11 - 0.59 K/uL [facility] ABSOLUTE EOS 0.11 0.01 - 0.50 K/uL [facility] ABSOLUTE BASOS 0.05 0.00 - 0.08 K/uL [facility] Granulocytes, immature 0.02 0.00 - 0.05 K/uL [facility] Blood 09/09/2018 2:23 PM EDT 09/09/2018 2:27 PM EDT us Emilie Hunt MD LAB BLOOD BKR ORDERABLES Final Result Performing Organization Address [facility] Co de Phone Number [address] [phone] * C-Reactive Protein (09/09/2018 2:23 PM EDT) C REACTIVE PROTEIN 2.6 0.0 - 4.0 mg/L [facility] Blood 09/09/2018 2:23 PM EDT 09/09/2018 2:27 PM EDT Emilie Hunt MD LAB BLOOD BKR ORDERABLES Final Result Performing Organization Address [facility] Co de Phone Number [address] [phone] documented in this encounter Visit Diagnoses Diagnosis [...] documented as of this encounter Care Teams Lithoplate Maker Relationship Specialty Start Date End Date Allison Arce FNP [address] [place] [address] [email or web address] PCP - General 12/09/17 Valdez Lau MD [address] [place] [address] [email or web address] Historical LMR Provider 09/01/17 12/06/18 Elvira Vazquez MD [address] [place] [address] Historical LMR Provider 09/01/1712/06 Gloria Saavedra MD [address] [place] [address] [email or web address] Historical LMR Provider 09/01/17 12/06/18 Brandon Lei MD [address] [place] [address] Historical LMR Provider 09/01/1712/06 Flavia Doyle MD 15 [facility], 2nd [place] [address] [email or web address] Historical LMR Provider 09/01/1712/06 Miguel Hampton MD 22 [facility] [place] [address] [email or web address] Historical LMR Provider 09/01/17 Chris Deleon MD 22 [facility], [address] [place] [address] Historical LMR Provider 09/01/17 12/06/18 Regan Dyer MD Historical LMR Provider 09/01/17 12/06/18 Alilson Arce FNP [address] [place] [address] [email or web address] Historical LMR Provider 09/01/17 Rubia Dutta DO [address] [place] [address] [email or web address] Family [facility] 12/07/18 08/21/21 Varinder Rocha NP [address] [place] [address] Psychiatrist 07/22/22 12/07/23 Katy Mcmahon MSW [address] [place] [address] [email or web address] Floor Finisher 10/06/23 Michelle Morales [address] [place] [address] 08/03/24 Aditya Garcia Floor Finisher Student 09/17/22 5 documented as of this encounter Additional Source Comments The information contained in this document represents components of the legal health record. It is not the complete legal health record.[facility]
--- OUTSIDE RECORDS SUMMARY | 2025-10-06 00:43 | XMS_ITS | Encounter Summary ---
Author Organization [facility] Address [facility] [address] [facility] [address] [place] [address] Phone Care Team Providers Care Retail Client Solutions Consultant Name Role Phone Allison Arce FAGOT HEATER HELPER Primary Care Provide r Varinder Rocha PUNCHER Unavailable Katy Mcmahon TURN DOWN WORKER Unavailable abilio Michelle Morales Unavailable Unavailable Encounter Details Date Type Department Care Team (Late st Contact Info) Description 09/15/2023 Telephone [facility] 10 [place], [place] [phone] Allison Arce FNP 10 [place], [place] [phone] [email or web address] Social History Tobacco Use Types Packs/Day Years [...] high school, GED, job training, learning the Moroccan language, technical skills, or developing parenting skills)? [...] Description 11/30/2025 1:00 PM EST Office Visit [facility] [address] Floor, [address] [place] [address] Coleman Mcginnis MD [address] [place] [address] 12/07/2025 2:00 PM EST Office Visit [facility] 10 [place] [address] Allison Arce FNP 10 [place] [address] documented as of this encounter Visit Diagnoses Not on filedocumented in this encounter Additional Health Concerns Infection Onset Date Last Indicated Resolved Time COVID-19 06/07/2024 06/07/2024 06/28/2024 1:21 AM EDT Assessment Noted Time PHQ-9 Depression Total Score: 12 021 10:35 AM EDT PHQ-2 Depression Total Score: 2 08/13/20 22 5:17 PM EDT documented as of this encounter Care Teams Retail Client Solutions Consultant Relationship Specialty Start Date End Date Allison Arce FNP [address] [place] [address] PCP - General 12/09/17 Varinder Rocha NP [address] [place] [address] Psychiatrist 07/22/22 12/07/23 Katy Mcmahon MSW [address] [place] [address] Car Supervisor 10/06/23 Michelle Morales [address] [place] [address] 08/03/24 Aditya Garcia Car Supervisor Student 09/17/22 5 documented as of this encounter Additional Source Comments The information contained in this document represents components of the legal health record. It is not the complete legal health record.[facility]
--- OUTSIDE RECORDS SUMMARY | 2025-10-06 00:43 | XMS_ITS | Encounter Summary ---
Author Organization [facility] Address Critical access hospital [employer] [facility] [address] [place] [address] Phone Care Team Providers Care Building Trades Teacher Name Role Phone Allison Arce SENIOR CONSTRUCTION PROJECT MANAGER Primary Care Provide r Rubia Barkley DO Unavailable Varinder Rocha HOGSHEAD STRIPPER Unavailable Katy Mcmahon HEMATOLOGY SPECIALIST Unavailable abilio Michelle Morales Unavailable Unavailable Encounter Details Date Type Department Care Team (Late st Contact Info) Description 12/31/2018 Prep for Surgery [facility] [address] [place] [address] Socorro Walters MD [address] [place] [address] Orthopedics & Sports Medicine, [facility] [place] [address] Social History Tobacco Use Types Packs/Day Years [...] Description 11/30/2025 1:00 PM EST Office Visit [facility] [address] [facility] 3rd Floor, [address] [place] [address] Coleman Mcginnis MD 50 [place] [address] [email or web address] 12/07/2025 2:00 PM EST Office Visit [facility] 10 [place] [address] Allison Arce FNP [address] [place] [address] documented as of this encounter Visit Diagnoses [...] documented as of this encounter Care Teams Building Trades Teacher Relationship Specialty Start Date End Date Allison Arce FNP [address] [place] [address] PCP - General 12/09/17 Rubia Barkley DO [address] [place] [address] [email or web address] Family Medicine 12/07/18 08/21/21 Varinder Rocha NP 10 [facility] 3 [place] [address] Psychiatrist 07/22/22 12/07/23 Katy Mcmahon, SHA 10 [place] [address] [email or web address] Osd Clerk 10/06/23 Michelle Morales [address] [place] [address] 08/03/24 Aditya Garcia Osd Clerk Student 09/17/22 5 documented as of this encounter Additional Source Comments The information contained in this document represents components of the legal health record. It is not the complete legal health record.[facility]
== END 2025-10-05 12:51 | disposition home or self-care (01) ==
LOC: HO.US 12:50
PROVIDERS: Visit Provider Nurse Practitioner
DX: R10.10 Upper abdominal pain, unspecified (principal)
CPT/HCPCS: 76700

== ENCOUNTER → 2025-10-05 12:53 | Outpatient (BNV) | payer MEDICARE, MEDICAID, SELFPAY | PROVIDERS: Visit Provider Radiology Body Imaging | DX: R10.10 Upper abdominal pain, unspecified (principal) | CPT/HCPCS: 76700 ==

== ENCOUNTER 2025-10-19 13:25 | Outpatient (AMB) | payer MEDICARE, MEDICAID, SELFPAY ==
--- NOTE | 2025-10-19 13:38 | MHC.OFFVIS ---
Vital Signs 10/19/25 13:44 Height 5 ft 1 in Weight 145 lb BMI 27.4 BP 128/68 Blood Pressure Location Lt brachial Position Sitting Pulse 76 Pulse Source Pulse Oximeter Pulse Oximetry (%) 94 Oxygen Delivery Method Room Air Intake Visit Reasons: F/u Chron's / US results. Intake Note: Est pt for mgmt of Crohn's and GERD. CC: Pt presents to the office today and expresses interest in reviewing US results and a possible probiotic option. No additional sx or concerns. Nuclear Technician Required: No Accompanied by: Self / Same As Patient Allergies clindamycin (CLINDAMYCIN) Allergy (Intermediate, Verified 10/19/25 13:50) HIVES egg Allergy (Intermediate, Verified 10/19/25 13:50) Hives Penicillins (PENICILLINS) Allergy (Intermediate, Verified 10/19/25 13:50) RASH,HIVES Sulfa (Sulfonamide Antibiotics) (SULFA(SULFONAMIDE ANTIBIOTICS)) Allergy (Intermediate, Verified 10/19/25 13:50) RASH,HIVES HPI HPI F/u Chron's / US results.: Details: Assessment & Plan (1) Upper abdominal pain: Code(s): R10.10 - Upper abdominal pain, unspecified Category: Medical (2) Crohn's disease in remission: Code(s): K50.90 - Crohn's disease, unspecified, without complications Category: Medical Plan His current GI regimen consists of Lialda 4.6 g a day, prednisone 11 mg a day, Citrucel once a day and pantoprazole 20 mg twice a day. - The patient is a 64-year-old male presenting with bowel symptoms related to Crohn's Disease. - His diagnosis was revised from ulcerative colitis to Crohn?s based on recent colonoscopy and biopsy findings. This is based on the finding of some crypt distortion higher up in the transverse colon which would be more indicative of problems. - Symptoms include generalized abdominal cramping and increased frequency of bowel movements, reporting no blood or diarrhea, attributed to dietary adjustments including high-fiber intake. - There was a previous regimen of prednisone that initially controlled symptoms well, but reducing the dosage has led to recurring cramping. However his bowel movements happen formed and he has not had any bleeding or other diarrheal symptoms consistent with past exacerbations. He has had a very difficult time tapering the prednisone mostly related to appetite and fatigue. - we have tried to progress him past prednisone and mesalamine to more advanced agents, but he either has not tolerated them as was the case with Rinvoq or he did not like most of the research about these medications in the case of Humira. - An ultrasound is suggested to assess potential gallstones, as f his full fat [place] in the morning seems to be causing him some indigestion. - we discussed COVID vaccination since he is immune suppressed, I strongly recommend that once the new updated vaccine comes out that he get it. Should he ever come down with COVID he can contact our office as he had concerns about taking Paxlovid along with his antihypertensive medications. Given the difficulty he has had with the wean, I think we will stabilize him at 15 mg of prednisone for 3 months and then attempt to wean him much more slowly with intervals of stable dosing over a series of months to allow his body to adjust to likely adrenal suppression. Obviously we will continue his Lialda and is pantoprazole. Return office visit in 3 months Orders: Orders US abdomen complete Today R10.10 - Upper abdominal pain, unspecified Medications: Refilled prednisone 5 mg PO BID 60 tabs 6RF K51.90 - Ulcerative colitis, unspecified, without complications Discontinued sennosides (senna) Discontinued Reason: Doctor's Order 17.2 mg (2 x 8.6 mg) PO BEDTIME 180 tabs 2RF ULTRASOUND OF THE ABDOMEN 10/05/2025 FINDINGS: PANCREAS: Visualized portions are unremarkable. ABDOMINAL AORTA: The proximal, mid, and distal segments are normal in caliber. INFERIOR VENA CAVA: Visualized portions are normal. LIVER: The liver is normal in size. The liver contour is normal. Parenchymal echogenicity is normal. There is a subtle hypoechoic area in the left hepatic lobe measuring 1.1 x 0.9 x 0.9 cm. There is no intrahepatic biliary duct dilatation seen. GALLBLADDER: The gallbladder is physiologically distended without evidence of stones, sludge, polyps, wall thickening or pericholecystic fluid. COMMON BILE DUCT: Normal in caliber measuring 0.2 cm in diameter. RIGHT KIDNEY: No hydronephrosis. No renal calculi or focal parenchymal lesions. The kidney measures 10.4 cm in maximum dimension. LEFT KIDNEY: No hydronephrosis. No renal calculi or focal parenchymal lesions. The kidney measures 9.6 cm in maximum dimension. SPLEEN: The spleen measures 6.9 cm in maximum dimension. FREE FLUID: None. US/US abdomen complete IMPRESSION: 1. No acute sonographic findings. 2. Subtle hypoechoic area in the left hepatic lobe measures 1.1 x 0.9 x 0.9 cm. MR liver protocol is recommended for further evaluation. TODAY'S VISIT [facility] Medical History Weight loss, abnormal C. 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 H/O carpal tunnel repair Social History Household Members: None Are you a primary intensive care nurse to a significant other at home: No Do you presently have visiting nurse or other home services: No Alcohol intake: current Alcohol intake frequency: holidays/special occasions only Patient Tobacco Use Status: Never used Tobacco Substance Use Type: Marijuana Current occupational status: employed Current occupation: [employer] Physical Exam Vital Signs: Last Vital Signs Pulse 76 10/19/25 13:44 BP 128/68 10/19/25 13:44 Pulse Ox 94 10/19/25 13:44 Oxygen Delivery Method Room Air 10/19/25 13:44 BMI result Body Mass Index 27.4 Assessment & Plan Assessment & Plan (1) Crohn's disease in remission: Code(s): K50.90 - Crohn's disease, unspecified, without complications Category: Medical (2) Tubular adenoma of colon: Comment: 2024 SCOPE= COLITIS IN REMISSION; REPEAT IN 2 YEARS; 03/2023-repeat 2 years; 02/2022 repeat in 2 years due to ulcerative colitis Code(s): D12.6 - Benign neoplasm of colon, unspecified Category: Medical (3) GERD (gastroesophageal reflux disease): Code(s): K21.9 - Gastro-esophageal reflux disease without esophagitis Category: Medical (4) Liver lesion: Code(s): K76.9 - Liver disease, unspecified Category: Medical Plan Subjective Patient seen in follow-up to review abdominal ultrasound results and ongoing management of Crohn's disease. Ultrasound reportedly showed a lesion in the liver that I explained is most consistent with a benign cyst or hemangioma; patient expressed concern about liver cancer. I reassured him given normal liver enzymes and imaging appearance. He cannot tolerate closed MRI due to severe claustrophobia; agreeable to CT (open gantry). Denies contrast allergy and has no diabetes or renal disease. Reports weight has been stable around 145 lbs for several months after prior weight loss during a difficult course with C. difficile. Notes poor sleep and soreness after recent snow shoveling. For Crohn's disease, he has been on prednisone 15 mg daily since July per prior plan to stabilize before attempting another taper. We discussed starting a very slow taper after the holidays. He asked about probiotics (Visbiome on hand for his dog); I reviewed variable tolerance in IBD and suggested cautious trial if desired, with particular usefulness during antibiotic courses, and proper storage given live organisms. He is on Repatha per cardiology for severe hyperlipidemia with good cholesterol response and strong family history. Ultrasound also noted a distended gallbladder; I explained this can be normal. Relevant Past Medical, Social, and Family History - Ulcerative colitis; prior C. difficile infection. - Severe hyperlipidemia with strong family history; on Repatha through cardiology. - Severe claustrophobia (cannot tolerate closed MRI). Objective - Abdominal ultrasound: focal liver lesion likely benign (cyst vs hemangioma); gallbladder described as distended without other concerning findings. - Liver enzymes: within normal limits. Assessment & Plan Incidental liver lesion on ultrasound (likely benign cyst or hemangioma): Imaging appearance and normal liver enzymes are reassuring. - Order CT abdomen with contrast given inability to tolerate MRI; patient denies contrast allergy and has no diabetes or renal disease. - Reassurance provided; low suspicion for malignancy. Crohn's disease on chronic prednisone with prior taper difficulty: Currently stable on prednisone 15 mg daily since July. - Begin very slow taper after the holidays: decrease by 1 mg every 2 weeks (e.g., 14 mg x 2 weeks, then 13 mg x 2 weeks, etc.), monitoring tolerance. Continue Lialda. - Use 1 mg tablets on hand; contact me for refills as needed based on taper stage. - Counseling: goal to minimize long-term steroid adverse effects; adjust taper pace based on symptoms. - Diet/probiotic counseling: fiber may exacerbate symptoms for him?okay to reduce. Probiotics may help or worsen IBD; if trialed, do so cautiously and stop if symptoms worsen. Particularly reasonable during antibiotic courses. Store per cdl team truck driver guidance to preserve viability. Gallbladder distention on ultrasound: Explained physiologic/normal finding in this context; no intervention indicated. Severe hyperlipidemia: Managed by cardiology on Repatha with good response. - Continue current lipid management per cardiology. - Follow-up: Schedule visit in December (after holidays) to review CT results and assess prednisone taper progress. GERD: CONTINUE PANTOPRAZOLE Return office visit in December Orders: Orders CT abdomen w IV con Today K76.9 - Liver disease, unspecified Medications: Refilled Lialda (mesalamine) 4.8 grams (4 x 1.2 gram) PO DAILY 360 tabs 1RF NS pantoprazole 20 mg PO BID 60 tabs 6RF R21 - Rash and other nonspecific skin eruption Coding Level of Care Code Est Pt Level 4 (89039) Diagnoses Crohn's disease in remission K50.90 Tubular adenoma of colon D12.6 GERD (gastroesophageal reflux disease) K21.9 Liver lesion K76.9 Time Spent (min) 34
[2025-10-19 13:44] VITALS: BP 128/68; PULSE 76; O2SAT 94; BMI 27.4
--- OUTSIDE RECORDS SUMMARY | 2025-10-19 15:59 | XMS_ITS | Encounter Summary ---
Author Organization [facility] Address [address] [place] [address] Phone Care Team Providers Care Parliamentary Counsel Name Role Phone Allison Arce GEM EXPERT Primary Care Provide r Varinder Rocha FREIGHT BREAKER Unavailable [phone] Katy Mcmahon CONTROL CENTER OPERATOR Unavailable abilio Michelle Morales Unavailable Unavailable Encounter Details Date Type Department Care Team (Late st Contact Info) Description 09/11/2023 Procedure Pass [facility], Ct Scan - [address] [address] Social History Tobacco Use Types Packs/Day Years [...] high school, GED, job training, learning the [place]ymra[place] language, technical skills, or developing parenting skills)? [...] 7:20 PM EDT Reyna Evans, LAURA * [place] Suicide Severity Rating Scale (Screener/Recent Self-Report) Question [...] Description 11/30/2025 1:00 PM EST Office Visit [facility] [address] [place] [address] 3rd Floor, [address] [place] [address] Coleman Mcginnis MD [address] [place] [address] 12/07/2025 2:00 PM EST Office Visit [facility] [address] [place], [place] [phone] Allison Arce FNP [address] [place] [address] [phone] documented as of this encounter Visit Diagnoses Not on filedocumented in this encounter Additional Health Concerns Infection Onset Date Last Indicated Resolved Time COVID-19 06/07/2024 06/07/2024 06/28/2024 1:21 AM EDT Assessment Noted Time PHQ-9 Depression Total Score: 12 06/19/ 021 10:35 AM EDT PHQ-2 Depression Total Score: 2 08/13/20 22 5:17 PM EDT documented as of this encounter Care Teams Parliamentary Counsel Relationship Specialty Start Date End Date Allison Arce FNP [address] [place] [address] [phone] PCP - General 12/09/17 Varinder Rocha NP [address] [place] [address] [phone] Psychiatrist 07/22/22 12/07/23 Katy Mcmahon MSW [address] [place] [address] [email or web address] Sub Master 10/06/23 Michelle Morales [address] [place] [address] 08/03/24 Aditya Garcia Sub Master Student 09/17/22 5 documented as of this encounter Additional Source Comments The information contained in this document represents components of the legal health record. It is not the complete legal health record.[facility]
--- OUTSIDE RECORDS SUMMARY | 2025-10-19 15:59 | XMS_ITS | Encounter Summary ---
Author Organization [facility] Address [facility] My eStore App [facility] [address] [place] [address] Phone Care Team Providers Care Iuss Acoustic Analyst Name Role Phone Allison Arce HEALTH CLUB ATTENDANT Primary Care Provide r Rubia Barkley DO Unavailable Varinder Rocha CAR WASHER Unavailable Katy Mcmahon WAX BLEACHER Unavailable abilio Michelle Morales Unavailable Unavailable Encounter Details Date Type Department Care Team (Late st Contact Info) Description 12/31/2018 Prep for Surgery [facility] [address] [place] [phone] Socorro Walters MD [address] [place] [address] Orthopedics & Sports Medicine, [facility] [place] [address] Social History Tobacco Use Types Packs/Day Years [...] Description 11/30/2025 1:00 PM EST Office Visit [facility] [address] [facility] 3rd Floor, [address] [place] [address] Coleman Mcginnis MD 50 [place] [address] 12/07/2025 2:00 PM EST Office Visit [facility] [address] [place] [address] Allison Arce FNP [address] [place] [address] documented as of this encounter Visit Diagnoses [...] documented as of this encounter Care Teams Iuss Acoustic Analyst Relationship Specialty Start Date End Date Allison Arce FNP [address] [place] [address] [email or web address] PCP - General 12/09/17 Rubia Barkley DO [address] [place] [address] [email or web address] 12/07/18 08/21/21 Varinder Rocha NP 10 [facility] 3 [place] [address] Psychiatrist 07/22/22 12/07/23 Katy Mcmahon, SHA 10 [place] [address] [email or web address] Welding Pantograph Machine Operator 10/06/23 Michelle Morales [address] [place] [address] 08/03/24 Aditya Garcia Welding Pantograph Machine Operator Student 09/17/22 5 documented as of this encounter Additional Source Comments The information contained in this document represents components of the legal health record. It is not the complete legal health record.[facility]
--- OUTSIDE RECORDS SUMMARY | 2025-10-19 15:59 | XMS_ITS | Encounter Summary ---
Author Organization [facility] Address [facility] [employer] [facility] [address] [place] [address] Phone Care Team Providers Care Telephone Worker Name Role Phone Allison Arce WAIST PLEATER Primary Care Provide r Varinder Rocha SUPPLY REQUIREMENTS OFFICER Unavailable [phone] Katy Mcmahon METAL TECHNICIAN Unavailable abilio Michelle Morales Unavailable Unavailable Encounter Details Date Type Department Care Team (Late st Contact Info) Description 09/15/2023 Telephone [facility] 10 [place], [place] [phone] Allison Arce FNP 10 [place], [place] [phone] [email or web address] Social History Tobacco Use Types Packs/Day [...] high school, GED, job training, learning the Djiboutian language, technical skills, or developing parenting skills)? [...] Description 11/30/2025 1:00 PM EST Office Visit [facility] [address] Floor, [address] [place] [address] Coleman Mcginnis MD [address] [place] [phone] 12/07/2025 2:00 PM EST Office Visit [facility] 10 [place] [address] Allison Arce FNP [address] [place] [address] documented as of this encounter Visit Diagnoses Not on filedocumented in this encounter Additional Health Concerns Infection Onset Date Last Indicated Resolved Time COVID-19 06/07/2024 06/07/2024 06/28/2024 1:21 AM EDT Assessment Noted Time PHQ-9 Depression Total Score: 12 021 10:35 AM EDT PHQ-2 Depression Total Score: 2 08/13/20 22 5:17 PM EDT documented as of this encounter Care Teams Telephone Worker Relationship Specialty Start Date End Date Allison Arce FNP [address] [place] [phone] PCP - General 12/09/17 Varinder Rocha NP [address] [place] [address] Psychiatrist 07/22/22 12/07/23 Katy Mcmahon MSW [address] [place] [phone] Shank Cementer Hand 10/06/23 Michelle Morales [address] [place] [phone] 08/03/24 Aditya Garcia Shank Cementer Hand Student 09/17/22 5 documented as of this encounter Additional Source Comments The information contained in this document represents components of the legal health record. It is not the complete legal health record.[facility]
--- OUTSIDE RECORDS SUMMARY | 2025-10-19 15:59 | XMS_ITS | Encounter Summary ---
Author Organization [facility] Address [address] [place] [address] Phone Care Team Providers Care Beater And Pulper Feeder Name Role Phone [employer]al[employer] Allison Hassan SPRAY PAINTING MACHINE OPERATOR Primary Care Provide r Varinder Rocha CLASSIFICATION CLERK Unavailable [phone] Katy Mcmahon LEAF SUCKER OPERATOR Unavailable abilio [email or web address] Michelle Morales Unavailable Unavailable Reason for Referral * Physical Therapy (Routine) - Closed Specialty Diagnoses / Procedures Referred By Yogesh anderson Referred To Contact Physical Therapy Diagnoses Encounter for rehabilitation Rommel Smith NP Phone: tel: fax: [email or web address] [address] [place] [address] Phone: tel: Referral ID Status Reason Start Date Expiration Date Visits Re quested Visits Authorized [id number] Closed 03/24/2023 03/23/2024 99 99 Encounter Details Date Type Department Care Team (Latest Contact Info) Description 02/07/2023 Transcribe Orders [facility] [address] [place] [address] Rommel Smith NP [address] [place] [address] [email or web address] Encounter for rehabilitation (Primary Dx) [...] high school, GED, job training, learning the Cuban language, technical skills, or developing parenting skills)? [...] Description 11/30/2025 1:00 PM EST Office Visit [facility] [address] Floor, [address] [place] [address] Coleman Mcginnis MD [address] [place] [address] 12/07/2025 2:00 PM EST Office Visit [facility] [address] [place] [address] Allison Arce FNP [address] [place] [phone] Scheduled Referrals Name Type Priority Associated Diagnoses Orde r Schedule Ambulatory referral to [facility] Physical Therapy Outpatient Referral Routine Encounter [...] documented as of this encounter Care Teams Beater And Pulper Feeder Relationship Specialty Start Date End Date Allison Arce FNP [address] [place] [address] PCP - General 12/09/17 Varinder Rocha NP [address] [place] [address] Psychiatrist 07/22/22 12/07/23 Katy Mcmahon MSW [address] [place] [address] Leather Goods Ii Assembler 10/06/23 Michelle Morales [address] [place] [address] 08/03/24 Aditya Garcia Leather Goods Ii Assembler Student 09/17/22 5 documented as of this encounter Additional Source Comments The information contained in this document represents components of the legal health record. It is not the complete legal health record.[facility]
--- OUTSIDE RECORDS SUMMARY | 2025-10-19 15:59 | XMS_ITS | Encounter Summary ---
Author Organization [facility] Address [address] [place] [address] Phone Care Team Providers Care Border Machine Operator Name Role Phone Claude Allison Sonya DIVING SUPERVISOR Primary Care Provide r Katy Mcmahon MIG TIG WELDER Unavailable abilio [email or web address] Michelle Morales Unavailable Unavailable Encounter Details Date Type Department Care Team (Late st Contact Info) Description 07/02/2024 Procedure Pass [facility] [address] [place] [address] Social History Tobacco Use Types Packs/Day Years [...] high school, GED, job training, learning the Bahamian language, technical skills, or developing parenting skills)? [...] Description 11/30/2025 1:00 PM EST Office Visit [facility] [address] [place] [address] [address]rd Floor, [address] [place], [place] [phone] Coleman Mcginnis MD [address] [place] [address] 12/07/2025 2:00 PM EST Office Visit [facility] [address] [place] [address] Allison Arce FNP [address] [place] [address] [email or web address] documented as of this encounter Visit Diagnoses Not on filedocumented in this encounter Additional Health Concerns Assessment Noted Time PHQ-9 Depression Total Score: 12 06/19/ 021 10:35 AM EDT PHQ-2 Depression Total Score: 2 08/13/20 22 5:17 PM EDT documented as of this encounter Care Teams Border Machine Operator Relationship Specialty Start Date End Date Allison Arce FNP [address] [place] [address] PCP - General 12/09/17 Katy Mcmahon MSW [address] [place] [phone] [email or web address] Customer Service Driver 10/06/23 Michelle Morales [address] [place] [address] 08/03/24 Aditya Garcia Customer Service Driver Student 09/17/22 5 documented as of this encounter Additional Source Comments The information contained in this document represents components of the legal health record. It is not the complete legal health record.[facility]
--- OUTSIDE RECORDS SUMMARY | 2025-10-19 15:59 | XMS_ITS | Encounter Summary ---
Author Organization [facility] Address [facility] [employer] [facility] [address] [place] [address] Phone Care Team Providers Care Wrapper And Preserver Name Role Phone Allison Arce MIRROR INSPECTOR Primary Care Provide r Rubia Barkley DO Unavailable [phone] Varinder Rocha BOTTLE FEEDER Unavailable [phone] Katy Mcmahon CUSTOMER COUNTER REPRESENTATIVE Unavailable abilio [email or web address] Michelle Morales Unavailable Unavailable Encounter Details Date Type Department Care Team (Late Contact Info) Description 01/13/2019 Procedure Pass OR Admitting Dept - Virtual Department [address] [place] [address] Social History Tobacco Use Types Packs/Day Years [...] Description 11/30/2025 1:00 PM EST Office Visit [facility] [address] [place] [address] 3rd Floor, [address] [place] [address] Coleman Mcginnis MD [address] [place] [address] 12/07/2025 2:00 PM EST Office Visit [facility] 10 [place] [address] Judyjarad Allison TO Hassan 10 [place], [place] [phone] documented as of this encounter Visit Diagnoses [...] documented as of this encounter Care Teams Wrapper And Preserver Relationship Specialty Start Date End Date Allison Arce FNP [address] [place] [address] PCP - General 12/09/17 Rubia Barkley DO [address] [place] [address] [email or web address] 12/07/18 08/21/21 Varinder Rocha NP [address] [place] [address] Psychiatrist 07/22/22 12/07/23 Katy Mcmahon MSW [address] [place] [address] [email or web address] Edi Consultant 10/06/23 Michelle Morales [address] [place] [address] 08/03/24 Aditya Garcia Edi Consultant Student 09/17/22 5 documented as of this encounter Additional Source Comments The information contained in this document represents components of the legal health record. It is not the complete legal health record.[facility]
--- OUTSIDE RECORDS SUMMARY | 2025-10-19 15:59 | XMS_ITS | Encounter Summary ---
Author Organization [facility] Address [facility] [employer] [address] [address] Phone Care Team Providers Care Sales Hunter Name Role Phone Valdez Lau MD Unavailable Elvira Vazquez MD Unavailable [phone] Gloria Saavedra MD Unavailable Brandon Lei MD Unavailable Flavia Doyle MD Unavailable Miguel Hampton MD Unavailable [phone] Chris Deleon MD Unavailable Regan Dyer MD Unavailable [email or web address] Allison Rico Unavailable [phone] Allison Arce [facility] Primary Care Provide r Rubia Barkley DO Unavailable Varinder Rocha NP Unavailable Katy Mcmahon CORK SORTER Unavailable abilio Michelle Morales Unavailable Unavailable Encounter Details Date Type Department Care Team (Late st Contact Info) Description 09/09/2018 Transcribe Orders [facility] 30 [place], [place] [phone] Emilie Hunt MD [address] [place] [address] Dr [place] [phone] Inflammatory bowel disease (Primary Dx) Social History [...] Description 11/30/2025 1:00 PM EST Office Visit [facility] [address] [place] [address] 3rd Floor, [address] [place] [address] Coleman Mcginnis MD [address] [place] [address] 12/07/2025 2:00 PM EST Office Visit [address] [phone] Allison Arce FNP 10 [place], [place] [phone] documented as of this encounter Results * CBC and differential (09/09/2018 2:23 PM EDT) WBC 6.72 3.40 - 11.20 K/uL [facility] RBC 4.47 3.80 - 4.80 M/uL [facility] HGB 13.6 12.0 - 15.0 g/dL [facility] HCT 40.0 36.0 - 46.0 % [facility] PLT 255 130 - 400 K/uL [facility] MCV 89.5 79.0 - 98.0 fL [facility] MCH 30.4 27.0 - 34.8 pg [facility] MCHC 34.0 31.5 - 36.0 g/dL [facility] RDW 11.9 10.8 - 14.6 % [facility] MPV 10.4 9.4 - 12.4 [facility] NRBC 0.00 /100 WBCs [facility] ABSOLUTE NRBC 0.00 K/uL [facility] DIFF METHOD Auto [facility] NEUTS 65.4 45.30 - 77.70 % [facility] LYMPHS 23.2 12.30 - 39.70 % [facility] MONOS 8.8 4.10 - 12.80 % [facility] EOS 1.6 0 - 7.2 % [facility] BASOS 0.7 0 - 2.80 % [facility] Granulocytes, immature (%) 0.3 0.0 - 0.9 % [facility] ABSOLUTE NEUTS 4.39 1.40 - 7.70 K/uL [facility] ABSOLUTE LYMPHS 1.56 0.60 - 3.20 K/uL [facility] ABSOLUTE MONOS 0.59 0.11 - 0.59 K/uL [facility] ABSOLUTE EOS 0.11 0.01 - 0.50 K/uL [facility] ABSOLUTE BASOS 0.05 0.00 - 0.08 K/uL [facility] Granulocytes, immature 0.02 0.00 - 0.05 K/uL [facility] Blood 09/09/2018 2:23 PM EDT 09/09/2018 2:27 PM EDT us Emilie Hunt MD LAB BLOOD BKR ORDERABLES Final Result Performing Organization Address [facility] [[email or web address]] Co de Phone Number [address] [address] * C-Reactive Protein (09/09/2018 2:23 PM EDT) C REACTIVE PROTEIN 2.6 0.0 - 4.0 mg/L [facility] Blood 09/09/2018 2:23 PM EDT 09/09/2018 2:27 PM EDT Emilie Hunt MD LAB BLOOD BKR ORDERABLES Final Result Performing Organization Address [facility] [[email or web address]] Co de Phone Number [address] [address] documented in this encounter Visit Diagnoses Diagnosis [...] documented as of this encounter Care Teams Sales Hunter Relationship Specialty Start Date End Date Allison Arce FNP [address] [place] [address] [email or web address] PCP - General 12/09/17 Valdez Lau MD [address] [place] [address] [email or web address] Historical LMR Provider 09/01/17 12/06/18 Elvira Vazquez MD [address] [place] [address] Historical LMR Provider 09/01/1712/06 Gloria Saavedra MD [address] [place] [address] [email or web address] Historical LMR Provider 09/01/17 12/06/18 Brandon Lei MD [address] [place] [address] Historical LMR Provider 09/01/1712/06 Flavia Doyle MD [address] [facility], 2nd [place] [address] [email or web address] Historical LMR Provider 09/01/1712/06 Miguel Hampton MD [address] [facility] [place] [address] [email or web address] Historical LMR Provider 09/01/17 Chris Deleon MD [address] [facility] [place] [address] Historical LMR Provider 09/01/17 12/06/18 Regan Dyer MD Historical LMR Provider 09/01/17 12/06/18 Allison Arce FNP [address] [place] [address] [email or web address] Historical LMR Provider 09/01/17 Rubia Dutta DO [address] [place] [address] [email or web address] 12/07/18 08/21/21 Varinder Rocha NP [address] [place] [address] Psychiatrist 07/22/22 12/07/23 Katy Mcmahon MSW [address] [place] [address] [email or web address] Operating Theatre Technician 10/06/23 Michelle Morales 10 [place] [address] 08/03/24 Aditya Garcia Operating Theatre Technician Student 09/17/22 5 documented as of this encounter Additional Source Comments The information contained in this document represents components of the legal health record. It is not the complete legal health record.[facility]
--- OUTSIDE RECORDS SUMMARY | 2025-10-19 15:59 | XMS_ITS | Encounter Summary ---
Author Organization [facility] Address [address] [place] [address] Phone Care Team Providers Care Transitional Care Liaison Name Role Phone Starlb Allison Purcellah LEAD BUSINESS SYSTEMS ANALYST Primary Care Provide r Katy Mcmahon RAIL GRINDER Unavailable abilio Michelle Morales Unavailable Unavailable Encounter Details Date Type Department Care Team (Late st Contact Info) Description 12/22/2023 Telephone [facility] 10 [place], [place] [phone] Lalitha Sommers, RN 10 [place] [address] Social History Tobacco Use Types Packs/Day Years [...] high school, GED, job training, learning the Azerbaijani language, technical skills, or developing parenting skills)? [...] Description 11/30/2025 1:00 PM EST Office Visit [facility] [address] [place] [address] 3rd Floor, [address] [place] [address] Coleman Mcginnis MD 50 [place] [address] 12/07/2025 2:00 PM EST Office Visit [facility] [address] [place] [address] Allison Arce FNP [address] [place] [address] documented as of this encounter Visit Diagnoses Not on filedocumented in this encounter Additional Health Concerns Infection Onset Date Last Indicated Resolved Time COVID-19 06/07/2024 06/07/2024 06/28/2024 1:21 AM EDT Assessment Noted Time PHQ-9 Depression Total Score: 12 021 10:35 AM EDT PHQ-2 Depression Total Score: 2 08/13/20 22 5:17 PM EDT documented as of this encounter Care Teams Transitional Care Liaison Relationship Specialty Start Date End Date Allison Arce FNP [address] [place] [address] PCP - General 12/09/17 Katy Mcmahon MSW [address] [place] [address] Library Director 10/06/23 Michelle Morales [address] [place] [address] 08/03/24 Aditya Garcia Library Director Student 09/17/22 5 documented as of this encounter Additional Source Comments The information contained in this document represents components of the legal health record. It is not the complete legal health record.[facility]
--- OUTSIDE RECORDS SUMMARY | 2025-10-19 15:59 | XMS_ITS | Encounter Summary ---
Author Organization [facility] Address [facility] [address] [place] [address] Phone Care Team Providers Care Roof Truss Detailer Name Role Phone Allison Arce GAMEROOM TECHNICIAN Primary Care Provide r Varinder Rocha INSURANCE ADMINISTRATOR Unavailable Katy Mcmahon POISER BALANCE Unavailable abilio Michelle Morales Unavailable Unavailable Encounter Details Date Type Department Care Team (Late st Contact Info) Description 09/05/2022 Telephone [facility] 10 [place], [place] [phone] Allison Arce FNP 10 [place], [place] [phone] [email or web address] Social History Tobacco Use Types Packs/Day Years [...] high school, GED, job training, learning the Malagasy language, technical skills, or developing parenting skills)? [...] your housing situation today? I have bk medina 08/13/2022 How many times have you [...] Description 11/30/2025 1:00 PM EST Office Visit [facility] [address] [place] [address] 3rd Floor, [address] [place] [address] Coleman Mcginnis MD [address] [place] [address] 12/07/2025 2:00 PM EST Office Visit [facility] [address] [place] [address] Allison Arce FNP 10 [place], [place] [phone] documented as of this encounter Visit Diagnoses Not on filedocumented in this encounter Additional Health Concerns Infection Onset Date Last Indicated Resolved Time COVID-19 06/07/2024 06/07/2024 06/28/2024 1:21 AM EDT Assessment Noted Time PHQ-9 Depression Total Score: 12 021 10:35 AM EDT PHQ-2 Depression Total Score: 2 08/13/20 22 5:17 PM EDT documented as of this encounter Care Teams Roof Truss Detailer Relationship Specialty Start Date End Date Allison Arce FNP [address] [place] [address] [email or web address] PCP - General 12/09/17 Varinder Rocha NP [address] [place] [address] Psychiatrist 07/22/22 12/07/23 Katy Mcmahon MSW [address] [place] [address] [email or web address] Unattended Ground Sensor Specialist 10/06/23 Michelle Morales [address] [place] [address] 08/03/24 Aditya Garcia Unattended Ground Sensor Specialist Student 09/17/22 5 documented as of this encounter Additional Source Comments The information contained in this document represents components of the legal health record. It is not the complete legal health record.[facility]
--- OUTSIDE RECORDS SUMMARY | 2025-10-19 15:59 | XMS_ITS | Encounter Summary ---
Author Organization [facility] Address [address] [facility] [address] [place] [address] Phone Care Team Providers Care Manager Critical Care Unit Name Role Phone Allison Arce COUPON AND BOND COLLECTION CLERK Primary Care Provide r Varinder Rocha CULINARY ARTS TEACHER Unavailable [phone] Katy Mcmahon TOP CLOSER Unavailable abilio Michelle Morales Unavailable Unavailable Encounter Details Date Type Department Care Team (Late st Contact Info) Description 05/08/2022 Procedure Pass OR Admitting Dept - Virtual Department 30 [place] [address] Social History Tobacco Use Types Packs/Day Years [...] high school, GED, job training, learning the French language, technical skills, or developing parenting skills)? [...] Description 11/30/2025 1:00 PM EST Office Visit [facility] [address] [place] [address] 3rd Floor, [address] [place] [address] Coleman Mcginnis MD [address] [place] [address] 12/07/2025 2:00 PM EST Office Visit [facility] [address] [place] [address] [phone] Allison Arce FNP [address] [place] [address] documented as of this encounter Visit Diagnoses Not on filedocumented in this encounter Additional Health Concerns Infection Onset Date Last Indicated Resolved Time COVID-19 06/07/2024 06/07/2024 06/28/2024 1:21 AM EDT Assessment Noted Time PHQ-9 Depression Total Score: 12 021 10:35 AM EDT PHQ-2 Depression Total Score: 3 06/19/20 21 10:35 AM EDT documented as of this encounter Care Teams Manager Critical Care Unit Relationship Specialty Start Date End Date Allison Arce FNP [address] [place] [address] PCP - General 12/09/17 Varinder Rocha NP [address] [place] [address] Psychiatrist 07/22/22 12/07/23 Katy Mcmahon, TOP CLOSER [address] [place] [address] Electric Meter Tester 10/06/23 Michelle Morales [address] [place] [address] 08/03/24 Aditya Garcia Electric Meter Tester Student 09/17/22 5 documented as of this encounter Additional Source Comments The information contained in this document represents components of the legal health record. It is not the complete legal health record.[facility]
--- OUTSIDE RECORDS SUMMARY | 2025-10-19 15:59 | XMS_ITS | Clinical Summary ---
Author Organization [facility] Address [facility] [employer] [facility] [address] [place] [address] Phone Care Team Providers Care Manufacturing Engineering Manager Name Role Phone JudyjaradAllison CHEMISTRY TEACHER Primary Care Provide r Katy Mcmahon COMPOUND FINISHER Unavailable abilio [email or web address] Michelle Morales Unavailable Unavailable Allergies Active Allergy [...] change status, some issues he's had with budget analyst re certificate, and some questions he had [...] colon cancer 04/17/2023 Overview (07/21/2023): colonoscopy, repeat [id number] as per GI Recurrent herpes labialis 03/12/2023 [...] absorb nutrients. We discussed meeting with a sheet rock installer to help him find cholesterol lowering ways to increase his calorie count. He will work on his diet and follow-up in 6 months. Assessment & Plan (12/27/2021 8:53 AM EST): Pt declines statin Dec 2021 Hearing loss 04/28/2019 PTSD (post-traumatic stress disorder) 04/22/2018 Overview (04/22/2018): Sees Vale Martinez at [facility] Anxiety 04/22/2018 IBS (irritable colon syndrome) 04/22/2018 Overview (04/22/2018): initially diagnosed with UC on colonoscopy but has had multiple unremarkable colonoscopies since. Sees Dr. Emilie Nash, GI in [facility] 04/22/2018 Overview (04/22/2018): S/p double mastectomy (2009, revision 2017), s/p BSO-Hyst (2017) Ulcerative colitis 10/23/2017 Right carpal tunnel syndrome Hallux rigidus of left foot Resolved Problems Problem Noted Date Diagnosed Date Resolved Date C. difficile colitis 09/16/2023 025 Overview (09/16/2023): Diagnosed 08/2023 via [employer] at [employer]. Started on abx Elevated BP without diagnosis of hypertension 06/19/20 21 01/31/2022 Basal cell carcinoma (BCC) 04/28/2019 0 04/28/2019 Overview (04/28/2019): Hx of Mohs procedure to nose Encounters Date Type Department Care Team Description 09/03/2025 Refill [facility] [address] [place] [address] Delores Rebolledo, WILLIAM Medication Refill 08/22/2025 Refill [facility] [address] [place] [address] Allison Arce, TO Medication Refill from Last [...] high school, GED, job training, learning the Cypriot language, technical skills, or developing parenting skills)? [...] Description 11/30/2025 1:00 PM EST Office Visit [facility] [address] [place] [address] 3rd Floor, [address] [place] [address] Coleman Mcginnis MD 50 [place] [address] [email or web address] 12/07/2025 2:00 PM EST Office Visit [address] [phone] Allison Arce FNP [address] [place] [address] [phone] Health Maintenance Due Date Last Done Comments [...] this topic Medical Devices Implanted Type Area Datastage Architect Device Identifier Shelf Expiration Date Model / Serial / Lot Plate Screw Locking R3con 2.7x18mm - [id number] Implanted:Qty: 1 on 05/08/2022 by Aj Wen MD at [facility] Left: Foot [employer] [id number] / / Plate Mtp 5 Degree Short-Short Left 2-Hole Distal - [id number] Implanted:Qty: 1 on 05/08/2022 by Aj Wen MD at [facility] Left: Foot [employer] [id number] / / Plate Screw Locking R3con 2.7x16mm - [id number] Implanted:Qty: 2 on 05/08/2022 by Aj Wen MD at [facility] Left: Foot [employer] [id number] / / Plate Screw Non Locking R3con 2.7x12mm - [id number] Implanted:Qty: 1 on 05/08/2022 by Aj Wen MD at [facility] Left: Foot [employer] [id number] / / Plate Screw Locking R3con 2.7x14mm - [id number] Implanted:Qty: 1 on 05/08/2022 by Aj Wen MD at [facility] Left: Foot [employer] [id number] / / Screw Mini Monster Cannulated Short Threaded Headed 3x24mm - [id number] Implanted:Qty: 1 on 05/08/2022 by Aj Wen MD at [facility] Left: Foot [employer] [id number] / / Explanted Type Area Datastage Architect Device Identifier Shelf Expiration Date Model / Serial / Lot K-Wire Single Ended [id number] Trocar Tip Smooth - [id number] Explanted:Qty: 1 on 05/08/2022 by Aj Wen MD at [facility] Left: Foot [employer] [id number] / / Countersink Headed 3.5mm - [id number] Explanted:Qty: 1 on 05/08/2022 by Aj Wen MD at [facility] Left: Foot [employer] [id number] / / K-Wire Bone [id number] Smooth Single Ended - [id number] Explanted:Qty: 1 on 05/08/2022 by Aj Wen MD at [facility] Left: Foot [employer] [id number] / / Procedures Procedure Name Priority Date/Time Associated Diagnosis Comments LIPID PANEL Routine 01/12/2025 3:24 PM EST Mixed hyperlipidemia COLONOSCOPY FOR RESULT ENTRY ONLY Routine 04/03/2023 from Last 3 Months or Most Recently Relevant to Health Maintenance Results * (ABNORMAL) Lipid panel (01/12/2025 3:24 PM EST) HDL 73 mg/dL [facility] Comment: Interpretation <40 mg/dL: Low HDL cholesterol (major risk factor for CHD) Greater than or equal to 60 mg/dL: High HDL cholesterol ( negative risk factor for CHD) HDL - cholesterol is affected by a number of factors, e.g. smoking, excerise, hormones, sex and age. CHOLESTEROL 247(H) 0 - 240 mg/dL [facility] TRIGLYCERIDES 100 30 - 160 mg/dL [facility] LDL 154(H) 50 - 129 mg/dL [facility] Comment: LDL levels in terms of risk for coronary heart disease: <100 mg/dL: Optimal 100-129 mg/dL: Near or above optimal 130-159 mg/dL: Borderline high 160-189 mg/dL: High >190 mg/dL: Very High CARDIAC RISK RATIO 3.4 3.4 - 5.0 C [facility] Blood 01/12/2025 3:24 PM EST 01/12/2025 3:27 PM EST us Coleman Mcginnis MD LAB BLOOD BKR ORDERABLES Claudia lopez Result [facility] [address] [place] [address] * COLONOSCOPY FOR RESULT ENTRY ONLY (04/03/2023) us Allison Arce CHEMISTRY TEACHER HEALTH MAINTENANCE Ed ited Result - Final from Last 3 Months or Most Recently Relevant to Health Maintenance Insurance MEDICARE PART A & B [facility] MEDICARE PART A & [place] [facility] [facility] [place] [facility] Advance Directives For more information, please contact: [phone] (9AM - 5PM [place], Friday-Friday) * Full Code (Presumed) (Latest Code Status on File) Date Activated Date Inactivated Comments 01/13/2019 10:20 AM 01/13/2019 3:53 PM Care Teams Manufacturing Engineering Manager Relationship Specialty Start Date End Date Allison Arce FNP [address] [place] [address] PCP - General 12/09/17 Katy Mcmahon MSW [address] [place] [address] [email or web address] Bridge Painter Helper 10/06/23 Michelle Morales [address] [place] [address] 08/03/24 Additional Source Comments The information contained in this document represents components of the legal health record. It is not the complete legal health record.[facility]
== END 2025-10-19 14:24 | disposition home or self-care (01) ==
LOC: HO.HGI 13:25
PROVIDERS: PCP Nurse Practitioner Family; Visit Provider Nurse Practitioner
DX: K50.90 Crohn's disease, unspecified, without complications (principal); D12.6 Benign neoplasm of colon, unspecified; K21.9 Gastro-esophageal reflux disease without esophagitis; K76.9 Liver disease, unspecified
CPT/HCPCS: 99214

== ENCOUNTER → 2025-10-19 13:25 | Outpatient (BNVA) | payer MEDICARE, MEDICAID, SELFPAY | PROVIDERS: PCP Nurse Practitioner Family; Visit Provider Nurse Practitioner | DX: K50.90 Crohn's disease, unspecified, without complications (principal); D12.6 Benign neoplasm of colon, unspecified; K21.9 Gastro-esophageal reflux disease without esophagitis; E78.5 Hyperlipidemia, unspecified; K76.9 Liver disease, unspecified | CPT/HCPCS: 99212 ==